=== PATIENT | male | born 1945 | race Caucasian/White ===

== ENCOUNTER 2018-06-20 11:56 | Inpatient (IN) ==
[2018-06-20] MEDS ORDERED: IOPAMIDOL 100 ML BOTTLE IV ONE (11:57)
[2018-06-20] MEDS ORDERED: VANCOMYCIN 1,000 MG in 0.9 % SODIUM CHLORIDE 250 ML IV ONE (12:16)
[2018-06-20 13:45] LABS: Basophils # (Auto) 0 K/mcL (0.0-0.3); Basophils % (Auto) 0.6 % (0.0-2.0); Eosinophils # (Auto) 0 K/mcL (0.0-0.7); Eosinophils % (Auto) 0.3 % (0.0-7.0); Lymphocytes # (Auto) 1.3 K/mcL (1.5-4.8); Lymphocytes % (Auto) 19.1 % (15.5-49.0); Mean Cell Volume 103.2 fL (80.0-100.0); Mean Corpuscular HGB Conc 34.3 g/dL (31.0-36.0); Mean Corpuscular Hemoglobin 35.4 pg (26.0-34.0); Monocytes # (Auto) 0.5 K/mcL (0.1-0.9); Platelet Count 150 K/mcL (140-440); RBC 3.76 M/mcL (4.50-5.90); Red Cell Distribution Width 16.4 % (11.5-14.5)
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
[2018-06-20 14:08] LABS: ALT/SGPT 18 U/l (0-40); Albumin 3.4 gm/dL (3.2-5.2); Alkaline Phosphatase 112 U/L (39-117); Blood Urea Nitrogen 7 mg/dl (8-23)
[2018-06-20] MEDS ORDERED: oxyCODONE 10 MG TAB.ER.12H PO SCH (15:00)
[2018-06-20] MEDS ORDERED: oxyCODONE 10 MG TAB.ER.12H PO ONE (15:00)
--- NOTE | 2018-06-20 15:28 | Cat Scan Report ---
CLINICAL INFORMATION: Injury to the right lower extremity. Severe pain and swelling. TECHNIQUE: 95 mL contrast material injected. CTA of the right lower extremity performed. Sagittally and coronally reformatted images. MIP reformatted images. COMPARISON: None. FINDINGS: There is a nonhealing wound in the right lower extremity. There is a single soft tissue gas bubble within the anterolateral soft tissues. Popliteal artery is normal. No stenosis or occlusion. Anterior tibial artery is normal. No luminal irregularity. No calcified or noncalcified plaque. No obstruction or stenosis. Dorsalis pedis artery is normal. There is mild calcified atherosclerotic plaque in the posterior tibial peroneal trunk. There is calcified plaque at the bifurcation of the peroneal artery and posterior tibial artery. Posterior tibial artery is patent without stenosis. No significant luminal irregularity. Peroneus artery is also patent without stenosis or occlusion. No other vascular abnormality. The muscles of the plantar arch appear normal. There is generalized subcutaneous edema consistent with cellulitis. No well-defined focal fluid collection. No radiopaque foreign body. No evidence for osteomyelitis. IMPRESSION: 1. Mild calcified plaque in the posterior tibial peroneal trunk. No stenosis or occlusion 2. Otherwise negative CTA of the popliteal artery and calf vessels 3. Generalized subcutaneous edema consistent with cellulitis. Single soft tissue gas bubble in the anterolateral lateral soft tissues of the catheter. Interpreted and Authenticated by: Haider Barajas 06/20/18
--- NOTE | 2018-06-20 16:21 | Emergency Department Note ---
ED Note Addendum Note Addendum: Patient evaluated with Mary and agree with the diagnosis and treatment and the need to be admitted. CTA reveals no evidence of vascular disease. Dr. Carbajal has accepted the patient
[2018-06-20] MEDS ORDERED: ONDANSETRON 4 MG/2 ML VIAL IV PRN (17:07)
[2018-06-20] MEDS ORDERED: NICOTINE 21 MG PATCH TOPICAL ONE (17:49)
[2018-06-20] MEDS: ceFAZolin 1 GM VIAL IV SCH (17:54)
[2018-06-20] MEDS: 0.9 % SODIUM CHLORIDE 1,000 ML IV SCH (18:01)
[2018-06-20] MEDS: CLINDAMYCIN 600 MG in DEXTROSE 5% IN WATER 50 ML IV SCH (18:10)
[2018-06-20] MEDS: TAMSULOSIN 0.4 MG CAPSULE PO SCH ×2 (18:12→20:15)
[2018-06-20] MEDS: oxyCODONE HCL 5 MG TABLET PO PRN (20:15)
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
[2018-06-20] MEDS: 0.9 % SODIUM CHLORIDE 10 ML SYRINGE IV SCH (22:45)
[2018-06-21] MEDS: ceFAZolin 1 GM VIAL IV SCH ×2 (01:55→22:41)
[2018-06-21] MEDS: oxyCODONE HCL 5 MG TABLET PO PRN ×4 (02:18→23:41)
[2018-06-21] MEDS: 0.9 % SODIUM CHLORIDE 1,000 ML IV SCH ×3 (04:37→23:41)
[2018-06-21] MEDS: 0.9 % SODIUM CHLORIDE 10 ML SYRINGE IV SCH ×3 (05:08→21:12)
[2018-06-21] MEDS: CLINDAMYCIN 600 MG in DEXTROSE 5% IN WATER 50 ML IV SCH (05:25)
[2018-06-21 06:56] LABS: ALT/SGPT 15 U/l (0-40); Albumin 2.7 gm/dL (3.2-5.2); Alkaline Phosphatase 109 U/L (39-117); Blood Urea Nitrogen 9 mg/dl (8-23)
[2018-06-21] MEDS: LEVOTHYROXINE 150 MCG TABLET PO SCH (07:50)
[2018-06-21] MEDS: PANTOPRAZOLE 40 MG TABLET PO SCH (07:50)
[2018-06-21 08:19] LABS: Mean Cell Volume 103.6 fL (80.0-100.0); Mean Corpuscular HGB Conc 34.6 g/dL (31.0-36.0); Mean Corpuscular Hemoglobin 35.8 pg (26.0-34.0); Platelet Count 138 K/mcL (140-440); RBC 3.36 M/mcL (4.50-5.90); Red Cell Distribution Width 16.5 % (11.5-14.5)
[2018-06-21] MEDS: ENOXAPARIN 40 MG/0.4 ML SYRINGE SQ SCH (08:22)
[2018-06-21 08:26] LABS: Anisocytosis 1+ (NONE SEEN); Band Neutrophils % 8 % (0-10); Eosinophils % (Manual) 3 % (0-7); Lymphocytes % 32 % (15-49); Macrocytosis 1+ (NONE SEEN); Monocytes % (Manual) 5 % (1-12); Platelet Estimate NORMAL (NORMAL); RBC Morphology ABNORM (NORMAL); Segmented Neutrophils % 52 % (38-78)
[2018-06-21] MEDS ORDERED: VIT A,C & E/LUTEIN/MINERALS TABLET PO SCH (09:00)
[2018-06-21] MEDS ORDERED: VANCOMYCIN PER PHARMACY IV SCH (10:19)
[2018-06-21] MEDS: VANCOMYCIN 1,500 MG in 0.9 % SODIUM CHLORIDE 500 ML IV SCH (10:53)
[2018-06-21] MEDS: MUPIROCIN CRM 2% 15 GM TUBE TOPICAL SCH ×2 (10:53→21:13)
[2018-06-21] MEDS: NICOTINE 21 MG PATCH TOPICAL SCH (10:53)
[2018-06-21] MEDS: CEFEPIME 2 GM VIAL IV SCH ×2 (10:53→23:41)
[2018-06-21] MEDS: ACETAMINOPHEN 325 MG TABLET PO PRN ×2 (13:18→20:22)
--- NOTE | 2018-06-21 16:33 | Internal Med Progress Note ---
Medical - PN: Subj Patient information: Note initiated : 06/21/18 at 4:20 pm Service Date, if different from initiated Date: [] Patient: Aakash Arellano 73 y/o M admitted on 06/20/18 for Right Leg Infection. Chief Complaint: Follow-up cellulitis Interval history: 06/20 Mr. Arellano is a 73 year old M with a history of treated hypertension, treated hypothyroidism, chronic pain, BPH who presents back to the emergency department with worsening redness and pain of his right lower extremity. On Monday, 06/15, patient fell on [email or web address]. He is going to be camping with friends. 2 friends brought him to the emergency department. He had significant injury along the right sheets with a distal "J" laterally. He received irrigation of the wound with subsequent stitches. Antibiotics were prescribed, however the patient was one aware and it was not until Monday, 3 days later that he was called by the pharmacy to clam picker her prescription for cephalexin. He started taking that on Monday. On Monday prior to starting antibiotics he noticed that his leg was getting red and painful. On Monday he continued to be red and painful spot of oral antibiotics. He has had a double up on some of his usual home oxycodone to control the pain (from 10-20 mg every 4 hours as needed). Monday was seen in the emergency department here. There is erythema and pain. Margins were noted , he was given a dose of ceftriaxone and continued on cephalexin and asked to return if he did not improve. He returns today due to worsening erythema and pain of his right leg. Patient denies any fevers or chills associated with this. He's been mostly on the couch with his leg elevated. It's quite painful to get up, to move and to try to ambulate to the restroom. He's had no associated nausea or vomiting, no shaking chills. In the emergency department, erythema had progressed beyond the margins both distally and proximally (more so distally). He had an area of breakdown about a quarter of the way down from the proximal end of the laceration. There is concern this could be vascular insufficiency, he underwent CT angiography of the lower extremity showing patent vascular flow to the right leg. There was no notation of subcutaneous edema, no notation of any fascial changes. Patient's been admitted for further treatment of cellulitis associated with right leg laceration which has not responded to outpatient therapy. 9/6 Feels well today. Pain is decreased in the leg, also notes her is decreased edema. Blood cultures without growth. No areas of purulence/drainage to culture. Being seen by wound care. Pertinent ROS: No fever, no dyspnea, no nausea vomiting, improved pain and right leg. - Constitutional Vitals: Vital Signs Temp Pulse Resp BP Pulse Ox 98.4 F 85 16 114/72 94 06/21/18 12:00 06/21/18 12:00 06/21/18 12:00 06/21/18 12:00 06/21/18 12:00 Period Temp Pulse Resp BP Sys/Rios Pulse Ox Last 24 Hr 97.1 F-98.5 F 65-85 16-18 106-143/65-91 93-100 Intake and Output 06/21/18 06/21/18 06/21/18 05:59 13:59 21:59 Intake Total 1375 / 1375 1854 / 1854 Output Total 725 / 725 1400 / 1400 Balance 650 / 650 454 / 454 Intake & Output: Intake & Output 06/21/18 06/21/18 06/21/18 05:59 13:59 21:59 Intake Total 1375 / 1375 1854 / 1854 Output Total 725 / 725 1400 / 1400 Balance 650 / 650 454 / 454 Intake: IV 1000 / 1000 1554 / 1554 Sodium Chloride 0.9% 1,000 ml @ 1000 / 1000 1000 / 1000 100 mls/hr IV .Q10H MARGARITO Rx#: [id number] Cleocin 600 mg In Dextrose 5% 54 / 54 in Water 50 ml @ 100 mls/hr IV Q8H MARGARITO Rx#:[id number] Vancomycin 1,500 mg In Sodium 500 / 500 Chloride 0.9% 500 ml @ 333.3 mls/hr IV Q24H MARGARITO Rx#: [id number] Oral 375 / 375 300 / 300 Output: Void Amount 725 / 725 1400 / 1400 Other: Meal egg sandwich, chicken noodle soup, cracker Breakfast Percent of Meal Consumed 100% 50% Feeding Ability Independent Assist with Tray Set Up Urine Appearance Clear Urine Color Pale Urine Odor Normal # Voids 1 2 Exam: General: Awake, alert, no acute distress Chest: Respirations unlabored Cardio vascular: Regular, no murmur Abdomen: Soft, nontender Musculoskeletal/skin: Right lower extremity with significantly decreased leg edema. Erythema has stopped from the level of the forefoot to the distal leg. Proximal erythema about the same. Decreased dermal edema around the wound, some skin definition developing. Neuro: Alert, oriented 3, nonfocal Medical - PN: Obj Da - Labs CBC & Chem 7: 06/21/18 04:12 06/21/18 04:12 Labs: Abnormal Lab Results 06/21/18 06/21/18 06/20/18 04:12 04:12 13:25 RBC 3.36 L Hgb 12.1 L Hct 34.8 L POC Hct 39.0 L MCV 103.6 H MCH 35.8 H RDW 16.5 H Plt Count 138 L Lymph # (Auto) RBC Morphology Abnorm A Polychromasia Few A Anisocytosis 1+ A Macrocytosis 1+ A POC BUN 7 L BUN Creatinine 0.5 L POC Creatinine 0.5 L Glucose 115 H POC Glucose 107 H Calcium 8.3 L POC WB Ioniz Calcium 1.11 L Total Protein 5.4 L Albumin 2.7 L 06/20/18 06/20/18 13:10 13:10 RBC 3.76 L Hgb 13.3 L Hct 38.8 L POC Hct MCV 103.2 H MCH 35.4 H RDW 16.4 H Plt Count Lymph # (Auto) 1.3 L RBC Morphology Polychromasia Anisocytosis Macrocytosis POC BUN BUN 7 L Creatinine 0.5 L POC Creatinine Glucose 110 H POC Glucose Calcium POC WB Ioniz Calcium Total Protein Albumin Microbiology 06/20/18 13:25 Blood Culture - Preliminary Blood 06/20/18 13:10 Blood Culture - Preliminary Blood Meds: Medications Acetaminophen (Tylenol) 650 mg PO Q6HP PRN PRN Reason: PAIN/FEVER > 101 Last Admin: 06/21/18 13:18 Dose: 650 mg Cefepime HCl (Maxipime) 2 gm IV Q12H [facility] Last Admin: 06/21/18 10:53 Dose: 2 gm Enoxaparin Sodium (Lovenox) 40 mg SQ DAILY [facility] Last Admin: 06/21/18 08:22 Dose: 40 mg Sodium Chloride (Sodium Chloride 0.9%) 1,000 mls @ 100 mls/hr IV .Q10H [facility] Last Admin: 06/21/18 13:48 Dose: 100 mls/hr Vancomycin HCl 1,500 mg/ (Sodium Chloride) 500 mls @ 333.3 mls/hr IV Q24H [facility] Last Infusion: 06/21/18 13:11 Dose: Infused Levothyroxine Sodium (Synthroid) 150 mcg PO ACB [facility] Last Admin: 06/21/18 07:50 Dose: 150 mcg Morphine Sulfate (Morphine) 6 mg IV Q4HP PRN PRN Reason: PAIN LEVEL > 6 Multivitamins/Minerals (Ocuvite) 1 tab PO DAILY [facility] Last Admin: 06/21/18 08:22 Dose: 1 tab Mupirocin (Bactroban Crm 2%) 1 gm TOPICAL BID [facility] Last Admin: 06/21/18 10:53 Dose: 1 gm Nicotine (Nicoderm) 21 mg TOPICAL DAILY@1000 [facility] Last Admin: 06/21/18 10:53 Dose: 21 mg Ondansetron HCl (Zofran) 4 mg IV Q6HP PRN PRN Reason: Nausea And Vomiting Oxycodone HCl (Roxicodone) 10 mg PO Q4HP PRN PRN Reason: PAIN LEVEL 3-6 Last Admin: 06/21/18 11:20 Dose: 10 mg Pantoprazole Sodium (Protonix) 40 mg PO QAMAC [facility] Last Admin: 06/21/18 07:50 Dose: 40 mg Sodium Chloride (Saline Flush) 10 ml IV Q8 [facility] Last Admin: 06/21/18 15:29 Dose: Not Given Tamsulosin HCl (Flomax) 0.4 mg PO HS [facility] Last Admin: 06/20/18 20:15 Dose: Not Given Vancomycin HCl (Vancomycin Per Pharmacy) 1 order IV UD [facility] Medical - PN: A/P (1) Cellulitis of right lower extremity Status: Acute Current Visit: Yes (2) Hypertension Status: Chronic Current Visit: Yes (3) Hypothyroid Status: Chronic Current Visit: Yes (4) Degenerative disc disease, lumbar Status: Chronic Current Visit: Yes - Narrative A/P Narrative: 73-year-old male presents with worsening erythema and pain of the right lower extremity after a wound from falling on rocks 5 days prior to presentation. Cellulitis of the right leg. At admission was worsening in spite of ceftriaxone 1 dose on day [employer], as well as cephalexin. Initial cephalexin didn' t get started until late, however he is been on 2 days of oral antibiotics with one dose of intravenous antibiotics with worsening symptoms at time of admission. Organisms as possible etiologies include streptococcus. This was not saltwater, vibrio not likely. Would need to consider Aeromonas if not improving. Very small focus of gas in the subcutaneous tissues, but no other evidence of infection and the fascial planes on CT. This morning, decreased edema and erythema of his leg. Discussed with infectious disease, will broaden antibiotic coverage as noted below to give better empiric gram negative coverage including Aeromonas and Pseudomonas as well as MRSA, as he may represent a ceftriaxone failure. Plan: Change to vancomycin and cefepime. Infectious disease and wound care consultations. Continue to elevate limb. Follow vancomycin levels, adjust as needed. Hypertension. Usually controlled on medications. Plan: Continue home meds. Hypothyroidism. On replacement. Plan: Continue. Degenerative disc disease with chronic pain on chronic opioids. Plan: Continue home oxycodone, and as needed IV morphine for pain control
--- NOTE | 2018-06-21 16:52 | General Surgery Consult Note ---
History of Present Illness Patient information: Note initiated : 06/21/18 at 4:44 pm Service Date, if different from initiated Date: [] Patient: Aakash Arellano 73 y/o M admitted on 06/20/18 for Right Leg Infection. Chief Complaint: [] Consult date: 06/21/18 (infected wound right leg.) Requesting physician: Geri Quiñones (wound care and continuation of treatment) History of present illness: I saw this patient along with Bharath RN and subsequently discussed this case with Dr. Quiñones hospitalist physician. This is a 73-year-old gentleman was admitted from the emergency room last evening. He presented with an infected right leg wound for about 4-5 days. Patient had fallen off on rocks when he was trying to calm out of water , when he was in [place]. This led to a significant traumatic tear injury of right posterior calf, skin and subcutaneous tissues. This was treated in the emergency room at that time by local thorough cleansing of the wound and suture closure of lacerations. Patient was discharged home with instructions about taking pain medications and oral antibiotics. Unfortunately he did not do that. He presented to the emergency room with worsening signs and symptoms of sepsis, acute inflammation with cellulitis and a mental status changes with confusion, poor vision and evolving signs of sepsis due to complicated skin and skin stricture infection. Additionally, there was strong suspicion for compromised vascular status of this extremity. Patient underwent CT angiography which revealed patent arterial tree all the way up to the foot and beyond. At this point, patient was admitted to the hospitalist service and started on intravenous antibiotics along with local wound care. Patient is currently responding to treatment and wound care consult was called for ongoing evaluation and follow-up for continuity of his care. Medications and Allergies Home Medications Medication Instructions Recorded Confirmed Type Cholecalciferol (Vitamin D3) 5,000 unit PO DAILY 03/05/16 06/20/18 History [Dialyvite Vitamin D] Fish Oil 1,000 mg PO DAILY 03/05/16 06/20/18 History Folic Acid 1 mg PO ONCE 03/05/16 06/20/18 History Levothyroxine [Synthroid] 150 mcg PO DAILY 03/05/16 06/20/18 History Sildenafil Citrate [Viagra] 50 mg PO PRN PRN 03/05/16 06/20/18 History Tamsulosin [Flomax] 0.4 mg PO HS 03/06/17 09/05/18 History Vit A/Vit C/Vit E/Zinc/Copper 1 each PO DAILY 12/19/16 06/20/18 History [Preservision Areds Softgel] Cephalexin [Keflex] 500 mg PO QID #40 cap 06/19/18 06/20/18 Rx oxyCODONE HCL [Oxycodone HCl] 1 tab PO QIDP PRN 06/19/18 06/20/18 History Allergies Allergy/AdvReac Type Severity Reaction Status Date / Time gabapentin AdvReac Mild Hallucinati Verified 06/21/18 06:31 ng Exam Temp Pulse Resp BP Pulse Ox 98.4 F 85 16 114/72 94 06/21/18 12:00 06/21/18 12:00 06/21/18 12:00 06/21/18 12:00 06/21/18 12:00 - General physical appearance well developed, well nourished, no distress, no pain - Eyes PERRL, normal ocular movement, other (decreased vision in both eyes due to long- standing changes of macular degeneration.) - ENT normal pinna, normal nares, normal mucosa, no hearing loss, no congestion - Head Head exam IM: Present: atraumatic, normal inspection, normocephalic - Neck no masses, no bruits, trachea midline, no lymphadectomy, no venous distension - Cardiovascular Cardiovascular exam IM: Present: normal rate and rhythm - Respiratory normal expansion, normal respiratory effort, clear to auscultation - Abdomen Abdomen: Present: soft, non tender, bowel sounds - Integumentary Present: other (resolving inflammation, erythema, edema and warmth of the right leg from the knee down to the ankle. There is fine wrinkling of skin and the toes are pink warm and dry and mobile. Sensations are intact. There is no paresthesia. No crepitation. Resolving inflammatory changes in response to elevation, intravenous antibiotics and MIST treatment.) - Neurologic Present: normal coordination, normal sensation - Musculoskeletal Present: other (patient is currently resting in bed but reportedly is able to get out of bed and go to the bathroom.) - Psychiatric Present: oriented to time, oriented to person, oriented to place, speech is normal, memory intact Results - Labs 06/21/18 04:12 09/06/18 04:12 Abnormal lab results 06/21/18 06/21/18 Range/Units 04:12 04:12 RBC 3.36 L (4.50-5.90) M/mcL Hgb 12.1 L (13.5-16.5) g/dL Hct 34.8 L (41.0-55.0) % MCV 103.6 H (80.0-100.0) fL MCH 35.8 H (26.0-34.0) pg RDW 16.5 H (11.5-14.5) % Plt Count 138 L (140-440) K/mcL RBC Morphology Abnorm A (NORMAL) Polychromasia Few A (NONE SEEN) Anisocytosis 1+ A (NONE SEEN) Macrocytosis 1+ A (NONE SEEN) Creatinine 0.5 L (0.7-1.2) mg/dl Glucose 115 H (70-105) mg/dL Calcium 8.3 L (8.6-10.4) mg/dl Total Protein 5.4 L (5.9-8.4) gm/dL Albumin 2.7 L (3.2-5.2) gm/dL Diabetes panel 06/21/18 Range/Units 04:12 Sodium 137 (133-145) mmol/L Potassium 4.2 (3.3-5.1) mmol/L Chloride 101 (96-108) mmol/L Carbon Dioxide 27 (22-30) mmol/L BUN 9 (8-23) mg/dl Creatinine 0.5 L (0.7-1.2) mg/dl Glucose 115 H (70-105) mg/dL Calcium 8.3 L (8.6-10.4) mg/dl AST 19 (0-37) U/l ALT 15 (0-40) U/l Alkaline Phosphatase 109 (39-117) U/L Total Protein 5.4 L (5.9-8.4) gm/dL Albumin 2.7 L (3.2-5.2) gm/dL Calcium panel 06/21/18 Range/Units 04:12 Calcium 8.3 L (8.6-10.4) mg/dl Albumin 2.7 L (3.2-5.2) gm/dL Pituitary panel 06/21/18 Range/Units 04:12 Sodium 137 (133-145) mmol/L Potassium 4.2 (3.3-5.1) mmol/L Chloride 101 (96-108) mmol/L Carbon Dioxide 27 (22-30) mmol/L BUN 9 (8-23) mg/dl Creatinine 0.5 L (0.7-1.2) mg/dl Glucose 115 H (70-105) mg/dL Calcium 8.3 L (8.6-10.4) mg/dl Adrenal panel 06/21/18 Range/Units 04:12 Sodium 137 (133-145) mmol/L Potassium 4.2 (3.3-5.1) mmol/L Chloride 101 (96-108) mmol/L Carbon Dioxide 27 (22-30) mmol/L BUN 9 (8-23) mg/dl Creatinine 0.5 L (0.7-1.2) mg/dl Glucose 115 H (70-105) mg/dL Calcium 8.3 L (8.6-10.4) mg/dl Total Bilirubin 0.3 (0.0-1.0) mg/dL AST 19 (0-37) U/l ALT 15 (0-40) U/l Alkaline Phosphatase 109 (39-117) U/L Total Protein 5.4 L (5.9-8.4) gm/dL Albumin 2.7 L (3.2-5.2) gm/dL All other labs normal. Assessment and Plan (1) Sepsis affecting skin Status: Acute Priority: High Comment: Patient started on local wound care consisting of chlorhexidine washes, MIST treatment, Topical antibiotics and protect to dressing with Kerlix bandage. He is on broad-spectrum intravenous antibiotics which will be reevaluated and probably De-escalated later.
[2018-06-21] MEDS: TAMSULOSIN 0.4 MG CAPSULE PO SCH (20:22)
[2018-06-21] MEDS: VIT A,C & E/LUTEIN/MINERALS TABLET PO SCH (21:11)
[2018-06-22] MEDS: oxyCODONE HCL 5 MG TABLET PO PRN ×5 (04:43→20:47)
[2018-06-22] MEDS: 0.9 % SODIUM CHLORIDE 10 ML SYRINGE IV SCH ×3 (04:44→22:00)
[2018-06-22 05:40] LABS: Basophils # (Auto) 0 K/mcL (0.0-0.3); Basophils % (Auto) 0.8 % (0.0-2.0); Eosinophils # (Auto) 0.1 K/mcL (0.0-0.7); Eosinophils % (Auto) 1.1 % (0.0-7.0); Granulocytes % (Auto) 59.5 % (38.0-78.0); Lymphocytes # (Auto) 1.4 K/mcL (1.5-4.8); Lymphocytes % (Auto) 30.5 % (15.5-49.0); Mean Cell Volume 102.7 fL (80.0-100.0); Mean Corpuscular HGB Conc 34.4 g/dL (31.0-36.0); Mean Corpuscular Hemoglobin 35.3 pg (26.0-34.0); Monocytes # (Auto) 0.4 K/mcL (0.1-0.9); Monocytes % (Auto) 8.1 % (1.0-12.0); Platelet Count 155 K/mcL (140-440); RBC 3.21 M/mcL (4.50-5.90); Red Cell Distribution Width 16.1 % (11.5-14.5)
[2018-06-22 06:25] LABS: Blood Urea Nitrogen 7 mg/dl (8-23)
[2018-06-22] MEDS: LEVOTHYROXINE 150 MCG TABLET PO SCH (07:19)
[2018-06-22] MEDS: PANTOPRAZOLE 40 MG TABLET PO SCH (07:19)
[2018-06-22] MEDS: ENOXAPARIN 40 MG/0.4 ML SYRINGE SQ SCH (08:50)
[2018-06-22] MEDS: VIT A,C & E/LUTEIN/MINERALS TABLET PO SCH ×2 (08:50→19:05)
[2018-06-22] MEDS: VANCOMYCIN 1,500 MG in 0.9 % SODIUM CHLORIDE 500 ML IV SCH (08:50)
[2018-06-22] MEDS: MUPIROCIN CRM 2% 15 GM TUBE TOPICAL SCH (08:55)
[2018-06-22] MEDS: CEFEPIME 2 GM VIAL IV SCH ×2 (09:00→20:47)
[2018-06-22] MEDS: NICOTINE 21 MG PATCH TOPICAL SCH (09:00)
[2018-06-22] MEDS ORDERED: POLYETHYLENE GLYCOL 3350 17 GM PACKET PO PRN (10:42)
[2018-06-22] MEDS ORDERED: MAGNESIUM HYDROXIDE 30 ML ORAL.SUSP PO PRN (10:42)
[2018-06-22] MEDS ORDERED: LINEZOLID 600 MG TABLET PO ONE (11:15)
[2018-06-22] MEDS: NEOMY SULF/BACITRA/POLYMYXIN B OINT.PACK TOPICAL SCH ×2 (12:46→19:26)
[2018-06-22] MEDS: 0.9 % SODIUM CHLORIDE 1,000 ML IV SCH (12:48)
--- NOTE | 2018-06-22 13:17 | General Surgery Progress Note ---
Subjective Patient reports: other (Patient seen on the floor along with the nursing staff and wound examined.) Narrative: Note initiated : 06/22/18 at 1:12 pm Service Date, if different from initiated Date: [] Patient: Aakash Arellano 73 y/o M admitted on 06/20/18 for Right Leg Infection. Chief Complaint: [] Patient was seen on rounds for wound care along with Candice RN, Essence SALAMANCA. Wound examined and progress reviewed with the nursing staff on the floor. Objective Temp Pulse Resp BP Pulse Ox 98.2 F 70 20 134/82 94 06/22/18 11:24 06/22/18 07:23 06/22/18 11:24 06/22/18 11:24 06/22/18 11:24 Afebrile. Vital signs are stable. There are note acute changes in vision or physical examination. Local examination: There is resolving edema but over 30-40% of flap necrosis along the suture line midportion of the wound over the sheets area. There is edema and purulence is noted in between sutures. Periwound pitting edema has improved with resolving cellulitis and elevation of the extremity. Suspect that patient still has loculated subcutaneous collections, fat necrosis or other debris that needs operating room debridement, along with deep tissue samples for cultures and sensitivities. I will await darin-wound TCOM measurements. After the debridement, this patient will need hyperbaric oxygen therapy for compromise flap and ongoing treatment of sepsis. Given the acuity of this presentation and complex comorbidities, this patient needs prolonged hospitalization in the swing bed unit for coordination of his wound care, hyperbaric oxygen therapy and intravenous antibiotic administration. Once the viability of the flap is established, further decisions can be made about discharging him and continuing outpatient wound care, medication and wound management. TCOM measurements were done later this afternoon. He shows excellent response to 100% oxygen challenge with elevated periwound percutaneous O2 measurements of over 40-50% at the end of 15 minutes. This patient will benefit from adjuvant HBOT - Additional Data Intake & Output - Last 24 hours: Intake & Output 06/20/18 06/21/18 06/22/18 06/23/18 05:59 05:59 05:59 05:59 Intake Total 1679 / 1679 3842 / 3842 1240 / 1240 Output Total 1275 / 1275 3875 / 3875 Balance 404 / 404 -33 / -33 1240 / 1240 Weight 195 lb 191 lb 8 oz 191 lb 8 oz - Labs 06/22/18 04:25 06/22/18 04:25 Diabetes panel 06/22/18 Range/Units 04:25 Sodium 139 (133-145) mmol/L Potassium 3.8 (3.3-5.1) mmol/L Chloride 103 (96-108) mmol/L Carbon Dioxide 26 (22-30) mmol/L BUN 7 L (8-23) mg/dl Creatinine 0.5 L (0.7-1.2) mg/dl Glucose 125 H (70-105) mg/dL Calcium 8.3 L (8.6-10.4) mg/dl Calcium panel 06/22/18 Range/Units 04:25 Calcium 8.3 L (8.6-10.4) mg/dl Pituitary panel 06/22/18 Range/Units 04:25 Sodium 139 (133-145) mmol/L Potassium 3.8 (3.3-5.1) mmol/L Chloride 103 (96-108) mmol/L Carbon Dioxide 26 (22-30) mmol/L BUN 7 L (8-23) mg/dl Creatinine 0.5 L (0.7-1.2) mg/dl Glucose 125 H (70-105) mg/dL Calcium 8.3 L (8.6-10.4) mg/dl Adrenal panel 06/22/18 Range/Units 04:25 Sodium 139 (133-145) mmol/L Potassium 3.8 (3.3-5.1) mmol/L Chloride 103 (96-108) mmol/L Carbon Dioxide 26 (22-30) mmol/L BUN 7 L (8-23) mg/dl Creatinine 0.5 L (0.7-1.2) mg/dl Glucose 125 H (70-105) mg/dL Calcium 8.3 L (8.6-10.4) mg/dl Assessment and Plan (1) Sepsis affecting skin Problem details: Patient started on local wound care consisting of chlorhexidine washes, MIST treatment, Topical antibiotics and protect to dressing with Kerlix bandage. He is on broad-spectrum intravenous antibiotics which will be reevaluated and probably De-escalated later. Status: Acute Current Visit: Yes - Narrative A/P Narrative: Assessment: Resolving complicated skin and skin structure infection following a traumatic wound right leg, mid third anterolateral aspect. Area of flap necrosis in the midportion of the wound adjacent to the tibial border. Plan: Operating room debridement and excision of necrotic tissue along with the deep tissue samples for cultures and sensitivities. OR schedule for 06/23/2018 at 7:30 AM - Time Spent With Patient Total time spent is greater than 50% in coordination of care (as documented) at patient's floor/unit and/or counseling patient:
--- NOTE | 2018-06-22 13:48 | Internal Med Progress Note ---
Medical - PN: Subj Patient information: Note initiated : 06/22/18 at 1:35 pm Service Date, if different from initiated Date: [] Patient: Aakash Arellano 73 y/o M admitted on 06/20/18 for Debridement and Pulse Lavage Right Foot. Chief Complaint: f/u cellulitis Interval history: 06/20 Mr. Arellano is a 73 year old M with a history of treated hypertension, treated hypothyroidism, chronic pain, BPH who presents back to the emergency department with worsening redness and pain of his right lower extremity. On Monday, 06/15, patient fell on [place] He is going to be camping with friends. 2 friends brought him to the emergency department. He had significant injury along the right sheets with a distal "J" laterally. He received irrigation of the wound with subsequent stitches. Antibiotics were prescribed, however the patient was one aware and it was not until Monday, 3 days later that he was called by the pharmacy to warehouse order picker her prescription for cephalexin. He started taking that on Monday. On Monday prior to starting antibiotics he noticed that his leg was getting red and painful. On Monday he continued to be red and painful spot of oral antibiotics. He has had a double up on some of his usual home oxycodone to control the pain (from 10-20 mg every 4 hours as needed). Monday was seen in the emergency department here. There is erythema and pain. Margins were noted , he was given a dose of ceftriaxone and continued on cephalexin and asked to return if he did not improve. He returns today due to worsening erythema and pain of his right leg. Patient denies any fevers or chills associated with this. He's been mostly on the couch with his leg elevated. It's quite painful to get up, to move and to try to ambulate to the restroom. He's had no associated nausea or vomiting, no shaking chills. In the emergency department, erythema had progressed beyond the margins both distally and proximally (more so distally). He had an area of breakdown about a quarter of the way down from the proximal end of the laceration. There is concern this could be vascular insufficiency, he underwent CT angiography of the lower extremity showing patent vascular flow to the right leg. There was no notation of subcutaneous edema, no notation of any fascial changes. Patient's been admitted for further treatment of cellulitis associated with right leg laceration which has not responded to outpatient therapy. 06/21 Feels well today. Pain is decreased in the leg, also notes her is decreased edema. Blood cultures without growth. No areas of purulence/drainage to culture. Being seen by wound care. 06/22 Patient seen and examined today, seen with Dr. Irving, also discussed with Dr. Agudelo. Some necrosis in the midportion of the suture line, some mild purulence. Cultures taken. Pain in the leg continues with ambulation, though not as painful when he first came in. Edema continues to improve. Pertinent ROS: No fever, no dyspnea, no nausea. Pain in limb as noted. Decreased sensation in the area of necrosis in mid sheets. Complaining of constipation, no bowel movement since hospitalization. - Constitutional Vitals: Vital Signs Temp Pulse Resp BP Pulse Ox 98.2 F 70 20 134/82 94 06/22/18 11:24 06/22/18 07:23 06/22/18 11:24 06/22/18 11:24 06/22/18 11:24 Period Temp Pulse Resp BP Sys/Rios Pulse Ox Last 24 Hr 97.2 F-98.7 F 70-82 16-20 124-144/71-85 93-96 Intake and Output 06/21/18 06/22/18 06/22/18 21:59 05:59 13:59 Intake Total 800 / 800 1188 / 1188 1240 / 1240 Output Total 1375 / 1375 1100 / 1100 Balance -575 / -575 1240 / 1240 Weight 191 lb 8 oz 191 lb 8 oz Patient Weight 06/23/18 05:59 Weight 191 lb 8 oz Intake & Output: Intake & Output 06/21/18 06/22/18 06/22/18 21:59 05:59 13:59 Intake Total 800 / 800 1188 / 1188 1240 / 1240 Output Total 1375 / 1375 1100 / 1100 Balance -575 / -575 88 / 1240 / 1240 Weight 191 lb 8 oz 191 lb 8 oz Intake: IV 988 / 988 1000 / 1000 Sodium Chloride 0.9% 1,000 ml @ 988 / 988 100 mls/hr IV .Q10H MARGARITO Rx#: [id number] Oral 800 / 800 200 / 200 240 / 240 Output: Void Amount 1375 / 1375 1100 / 1100 Other: Meal Breakfast Percent of Meal Consumed 100% Feeding Ability Independent Urine Color Bright Yellow Urine Odor Normal # Voids 1 1 Exam: General: In bed in no acute distress Chest: Clear Cardiac vascular: Regular Abdomen: Soft, mildly distended Skin: Right lower extremity with mostly resolved pedal edema, some distal leg edema remains. Induration around the suture line with area of necrosis in the mid sheets. No underlying crepitus. Neuro: Alert, oriented 3, nonfocal Medical - PN: Obj Da - Labs CBC & Chem 7: 06/22/18 04:25 06/22/18 04:25 Labs: Abnormal Lab Results 06/22/18 06/22/18 06/21/18 04:25 04:25 04:12 RBC 3.21 L Hgb 11.3 L Hct 33.0 L POC Hct MCV 102.7 H MCH 35.3 H RDW 16.1 H Plt Count Lymph # (Auto) 1.4 L RBC Morphology Polychromasia Anisocytosis Macrocytosis POC BUN BUN 7 L Creatinine 0.5 L 0.5 L POC Creatinine Glucose 125 H 115 H POC Glucose Calcium 8.3 L 8.3 L POC WB Ioniz Calcium Total Protein 5.4 L Albumin 2.7 L 06/21/18 06/20/18 06/20/18 04:12 13:25 13:10 RBC 3.36 L Hgb 12.1 L Hct 34.8 L POC Hct 39.0 L MCV 103.6 H MCH 35.8 H RDW 16.5 H Plt Count 138 L Lymph # (Auto) RBC Morphology Abnorm A Polychromasia Few A Anisocytosis 1+ A Macrocytosis 1+ A POC BUN 7 L BUN 7 L Creatinine 0.5 L POC Creatinine 0.5 L Glucose 110 H POC Glucose 107 H Calcium POC WB Ioniz Calcium 1.11 L Total Protein Albumin 06/20/18 13:10 RBC 3.76 L Hgb 13.3 L Hct 38.8 L POC Hct MCV 103.2 H MCH 35.4 H RDW 16.4 H Plt Count Lymph # (Auto) 1.3 L RBC Morphology Polychromasia Anisocytosis Macrocytosis POC BUN BUN Creatinine POC Creatinine Glucose POC Glucose Calcium POC WB Ioniz Calcium Total Protein Albumin Meds: Medications Acetaminophen (Tylenol) 650 mg PO Q6HP PRN PRN Reason: PAIN/FEVER > 101 Last Admin: 06/21/18 20:22 Dose: 650 mg Cefepime HCl (Maxipime) 2 gm IV Q12H [facility] Last Admin: 06/22/18 09:00 Dose: 2 gm Docusate Sodium (Colace) 100 mg PO BID [facility] Enoxaparin Sodium (Lovenox) 40 mg SQ DAILY [facility] Last Admin: 06/22/18 08:50 Dose: 40 mg Gentamicin Sulfate 40 mg/Clindamycin Phosphate 300 mg/Bacitracin 25,000 unit/ Sodium Chloride 503 mls @ 0 mls/hr IRR Q12H [facility] Levothyroxine Sodium (Synthroid) 150 mcg PO ACB [facility] Last Admin: 06/22/18 07:19 Dose: 150 mcg Linezolid (Zyvox) 600 mg PO Q12 [facility] Magnesium Hydroxide (Milk Of Magnesia) 30 ml PO BIDP PRN PRN Reason: Constipation Morphine Sulfate (Morphine) 6 mg IV Q4HP PRN PRN Reason: PAIN LEVEL > 6 Multivitamins/Minerals (Ocuvite) 1 tab PO BID [facility] Last Admin: 06/22/18 08:50 Dose: 1 tab Neomycin/Polymyxin/Bacitracin (Neosporin) 1 dose TOPICAL BID [facility] Last Admin: 06/22/18 12:46 Dose: 1 dose Nicotine (Nicoderm) 21 mg TOPICAL DAILY@1000 [facility] Last Admin: 06/22/18 09:00 Dose: 21 mg Ondansetron HCl (Zofran) 4 mg IV Q6HP PRN PRN Reason: Nausea And Vomiting Oxycodone HCl (Roxicodone) 10 mg PO Q4HP PRN PRN Reason: PAIN LEVEL 3-6 Last Admin: 06/22/18 12:44 Dose: 10 mg Pantoprazole Sodium (Protonix) 40 mg PO QAMAC [facility] Last Admin: 06/22/18 07:19 Dose: 40 mg Polyethylene Glycol (Miralax) 17 gm PO DAILYP PRN PRN Reason: Constipation Last Admin: 06/22/18 11:33 Dose: 17 gm Sodium Chloride (Saline Flush) 10 ml IV Q8 [facility] Last Admin: 06/22/18 04:44 Dose: Not Given Tamsulosin HCl (Flomax) 0.4 mg PO HS [facility] Last Admin: 06/21/18 20:22 Dose: 0.4 mg Medical - PN: A/P - Time Spent With Patient Total time spent is greater than 50% in coordination of care (as documented) at patient's floor/unit and/or counseling patient: Greater than 35 minutes (1) Cellulitis of right lower extremity Status: Acute Current Visit: Yes (2) Hypertension Status: Chronic Current Visit: Yes (3) Hypothyroid Status: Chronic Current Visit: Yes (4) Degenerative disc disease, lumbar Status: Chronic Current Visit: Yes - Narrative A/P Narrative: 73-year-old male presents with worsening erythema and pain of the right lower extremity after a wound from falling on rocks 5 days prior to presentation. Cellulitis of the right leg. 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 Initial cephalexin didn' t get started until late, however he is been on 2 days of oral antibiotics with one dose of intravenous antibiotics with worsening symptoms at time of admission. Organisms as possible etiologies include streptococcus, also consider Aeromonas and Pseudomonas giving the nature of the wound ([place] The edema continues to improve, still central erythema and induration with some necrosis of the central area of the suture line. Discussed with Dr. Agudelo, who plans to open debridement with secondary closure. Discussed with Dr. Irving, will change to linezolid from vancomycin, continue cefepime at this time. Plan: Change vancomycin to linezolid, continue cefepime. Further surgical management per Dr. Agudelo. Hypertension. Usually controlled on medications. Plan: Continue home meds. Hypothyroidism. On replacement. Plan: Continue. Degenerative disc disease with chronic pain on chronic opioids. Plan: Continue home oxycodone, and as needed IV morphine for pain control
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
[2018-06-22] MEDS ORDERED: BISACODYL 10 MG SUPP.RECT PR PRN (18:53)
[2018-06-22] MEDS: DOCUSATE SODIUM 100 MG CAPSULE PO SCH (19:05)
[2018-06-22] MEDS: TAMSULOSIN 0.4 MG CAPSULE PO SCH (19:05)
[2018-06-22] MEDS: GENTAMICIN SULFATE 40 MG, CLINDAMYCIN 300 MG, BACITRACIN 25,000 UNIT in SODIUM CHLORIDE... IRR SCH (19:25)
[2018-06-22] MEDS: LINEZOLID 600 MG TABLET PO SCH (20:47)
[2018-06-22] MEDS ORDERED: GENTAMICIN SULFATE 40 MG, CLINDAMYCIN 300 MG, BACITRACIN 25,000 UNIT in SODIUM CHLORIDE... IRR SCH (21:00)
[2018-06-22 21:30] LABS: Appearance,Urine CLEAR; Bilirubin,Urine NEG (NEG); Color,Urine YELLOW; Glucose,Urine (UA) NEGATIVE (NEG); Leukocyte Esterase,Urine NEG /uL (NEG); Protein,Urine NEG (NEG); Specific Gravity,Urine 1.014 (1.000-1.035); Urine Blood NEG mg/dL (<0.03); Urobilinogen,Urine NEG (NEG)
[2018-06-23] MEDS: 0.9 % SODIUM CHLORIDE 10 ML SYRINGE IV SCH ×3 (05:16→21:19)
[2018-06-23] MEDS: oxyCODONE HCL 5 MG TABLET PO PRN ×4 (05:16→23:49)
[2018-06-23 06:13] LABS: Basophils # (Auto) 0.1 K/mcL (0.0-0.3); Basophils % (Auto) 1.4 % (0.0-2.0); Eosinophils # (Auto) 0.1 K/mcL (0.0-0.7); Eosinophils % (Auto) 1.4 % (0.0-7.0); Granulocytes % (Auto) 60.3 % (38.0-78.0); Lymphocytes # (Auto) 1.4 K/mcL (1.5-4.8); Lymphocytes % (Auto) 29.4 % (15.5-49.0); Mean Cell Volume 103.1 fL (80.0-100.0); Mean Corpuscular HGB Conc 34.6 g/dL (31.0-36.0); Mean Corpuscular Hemoglobin 35.6 pg (26.0-34.0); Monocytes # (Auto) 0.4 K/mcL (0.1-0.9); Monocytes % (Auto) 7.5 % (1.0-12.0); Platelet Count 162 K/mcL (140-440); RBC 3.25 M/mcL (4.50-5.90); Red Cell Distribution Width 16.2 % (11.5-14.5)
[2018-06-23 06:44] LABS: Prealbumin 12.8 mg/dl (20-40)
[2018-06-23] MEDS: LEVOTHYROXINE 150 MCG TABLET PO SCH (06:48)
[2018-06-23] MEDS: PANTOPRAZOLE 40 MG TABLET PO SCH (06:48)
[2018-06-23 06:52] LABS: Blood Urea Nitrogen 10 mg/dl (8-23); C-Reactive Protein 4.8 mg/dl (0.0-0.8)
[2018-06-23 07:07] LABS: Estimated Average Glucose(eAG) 85 mg/dL; Hemoglobin A1C 4.6 % HGB (4.0-6.0)
[2018-06-23] MEDS ORDERED: PROPOFOL 200 MG/20 ML VIAL IV ONE (08:00)
[2018-06-23] MEDS ORDERED: DEXAMETHASONE 10 MG/ML VIAL IV ONE (08:00)
[2018-06-23] MEDS ORDERED: PHENYLEPHRINE 10 MG/ML VIAL IV ONE (08:00)
[2018-06-23] MEDS ORDERED: ONDANSETRON 4 MG/2 ML VIAL IV ONE (08:00)
[2018-06-23] MEDS ORDERED: GLYCOPYRROLATE 0.2 MG/ML VIAL IV ONE (08:00)
[2018-06-23] MEDS ORDERED: KETAMINE 100 MG/ML ML IV ONE (08:00)
[2018-06-23] MEDS ORDERED: fentaNYL 100 MCG/2 ML VIAL IV ONE (08:00)
[2018-06-23] MEDS ORDERED: LIDOCAINE HCL/PF 100 MG/5 ML SYRINGE IV ONE (08:00)
[2018-06-23] MEDS ORDERED: MIDAZOLAM 2 MG/2 ML VIAL IV ONE (08:00)
[2018-06-23] MEDS ORDERED: ACETAMINOPHEN 1,000 MG/100 ML BOTTLE IV ONE (08:25)
[2018-06-23] MEDS ORDERED: PROMETHAZINE 25 MG/ML VIAL IM PRN (08:25)
[2018-06-23] MEDS ORDERED: ONDANSETRON 4 MG/2 ML VIAL IV PRN ×2 (08:25→09:49)
[2018-06-23] MEDS ORDERED: IPRATROPIUM/ALBUTEROL 3 ML AMPUL.NEB NEB PRN (08:25)
[2018-06-23] MEDS ORDERED: BENZOCAINE/MENTHOL 1 LOZENGE PO PRN (08:25)
[2018-06-23] MEDS ORDERED: NALOXONE HCL 0.4 MG/ML VIAL IV PRN (08:25)
[2018-06-23] MEDS ORDERED: FLUMAZENIL 0.1 MG/ML ML IV PRN (08:25)
[2018-06-23] MEDS ORDERED: fentaNYL 100 MCG/2 ML VIAL IV PRN (08:25)
[2018-06-23] MEDS ORDERED: MEPERIDINE 50 MG/ML INJECTION IM PRN (08:25)
[2018-06-23] MEDS ORDERED: LACTATED RINGERS 250 ML IV PRN (08:25)
[2018-06-23] MEDS ORDERED: METHOCARBAMOL 1,000 MG/10 ML VIAL IV PRN (08:25)
[2018-06-23] MEDS ORDERED: MEPERIDINE 25 MG/ML SYRINGE IV PRN (08:25)
[2018-06-23] MEDS ORDERED: LACTATED RINGERS 1,000 ML IV SCH (08:30)
[2018-06-23] MEDS ORDERED: GENTAMICIN SULFATE 800 MG/20 ML VIAL IR ONE (08:53)
--- NOTE | 2018-06-23 08:55 | General Surgery Procedure Note ---
Date of procedure: Note initiated : 06/23/18 at 8:51 am Service Date, if different from initiated Date: [] Pre-op diagnosis: Sepsis: Infected trauma wound with Flap necrosis degloving RIGHT leg wound Post-op diagnosis: same Procedure: Excision of gangrenous necrotic skin, sub cutaneous fat, Debridement of wound, pulse lavage irrigation LOOSE approximation of open flap edges and stabilization of wound Findings: Wound dimensions 18 x 7 x 1 CM. Underlying fascia covering viable muscle is intact Anesthesia: GLMA Surgeon: Arturo Agudelo Estimated blood loss: 100 Pathology: other (Gangrenous tissue for pahtology. Tissue cultures for aerobic and anaerobic pathogens) Description of procedure: Excision debridement, pulse lavage irrigation, tissue biopsy and cultures OPEN packing. Condition: stable Disposition: PACU (Procedure well tolerated.)
[2018-06-23] MEDS ORDERED: CEFEPIME 2 GM VIAL IV SCH (09:00)
[2018-06-23] MEDS ORDERED: MAGNESIUM HYDROXIDE 30 ML ORAL.SUSP PO PRN (09:49)
[2018-06-23] MEDS ORDERED: BISACODYL 10 MG SUPP.RECT PR PRN (09:49)
[2018-06-23] MEDS ORDERED: POLYETHYLENE GLYCOL 3350 17 GM PACKET PO PRN (09:49)
--- NOTE | 2018-06-23 10:54 | Internal Med Progress Note ---
Medical - PN: Subj Patient information: Note initiated : 06/23/18 at 10:51 am Service Date, if different from initiated Date: [] Patient: Aakash Arellano 73 y/o M admitted on 06/20/18 for Debridement and Pulse Lavage Right Foot. Chief Complaint: Follow-up cellulitis Interval history: 06/20 Mr. Arellano is a 73 year old M with a history of treated hypertension, treated hypothyroidism, chronic pain, BPH who presents back to the emergency department with worsening redness and pain of his right lower extremity. On Monday, 06/15, patient fell on [place] [employer] [place]. He is going to be camping with friends. 2 friends brought him to the emergency department. He had significant injury along the right sheets with a distal "J" laterally. He received irrigation of the wound with subsequent stitches. Antibiotics were prescribed, however the patient was one aware and it was not until Monday, 3 days later that he was called by the pharmacy to pick up truck driver her prescription for cephalexin. He started taking that on Monday. On Monday prior to starting antibiotics he noticed that his leg was getting red and painful. On Monday he continued to be red and painful spot of oral antibiotics. He has had a double up on some of his usual home oxycodone to control the pain (from 10-20 mg every 4 hours as needed). Monday was seen in the emergency department here. There is erythema and pain. Margins were noted , he was given a dose of ceftriaxone and continued on cephalexin and asked to return if he did not improve. He returns today due to worsening erythema and pain of his right leg. Patient denies any fevers or chills associated with this. He's been mostly on the couch with his leg elevated. It's quite painful to get up, to move and to try to ambulate to the restroom. He's had no associated nausea or vomiting, no shaking chills. In the emergency department, erythema had progressed beyond the margins both distally and proximally (more so distally). He had an area of breakdown about a quarter of the way down from the proximal end of the laceration. There is concern this could be vascular insufficiency, he underwent CT angiography of the lower extremity showing patent vascular flow to the right leg. There was no notation of subcutaneous edema, no notation of any fascial changes. Patient's been admitted for further treatment of cellulitis associated with right leg laceration which has not responded to outpatient therapy. 06/21 Feels well today. Pain is decreased in the leg, also notes her is decreased edema. Blood cultures without growth. No areas of purulence/drainage to culture. Being seen by wound care. 06/22 Patient seen and examined today, seen with Dr. Irving, also discussed with Dr. Agudelo. Some necrosis in the midportion of the suture line, some mild purulence. Cultures taken. Pain in the leg continues with ambulation, though not as painful when he first came in. Edema continues to improve. 06/23 Status post debridement and washout in the OR by Dr. Agudelo this morning. A little groggy after anesthesia. No new complaints. Case discussed with ID this morning, we'll send screening for hepatitis and HIV given demographics. Patient believes he is had negative hepatitis screen in the past, though that was several years ago. Bacterial cultures as well as AFB, fungal cultures and tissue biopsy were collected intraoperatively. Pertinent ROS: Some pain and leg, feels a little groggy after anesthesia. No dyspnea, no abdominal pain. - Constitutional Vitals: Vital Signs Temp Pulse Resp BP Pulse Ox 97.2 F 64 14 121/75 90 06/23/18 09:35 06/23/18 09:35 06/23/18 09:35 06/23/18 09:35 06/23/18 09:35 Period Temp Pulse Resp BP Sys/Rios Pulse Ox Last 24 Hr 97.2 F-98.2 F 64-78 12-20 99-138/40-88 90-98 Intake and Output 06/22/18 06/23/18 06/23/18 21:59 05:59 13:59 Intake Total 360 / 360 540 / 540 1200 / 1200 Output Total 525 / 525 750 / 750 350 / 350 Balance -165 / -165 -210 / -210 850 / 850 Weight 198 lb Intake & Output: Intake & Output 06/22/18 06/23/18 06/23/18 21:59 05:59 13:59 Intake Total 360 / 360 540 / 540 1200 / 1200 Output Total 525 / 525 750 / 750 350 / 350 Balance -165 / -165 -210 / -210 850 / 850 Weight 198 lb Intake: IV 1200 / 1200 Lactated Ringers 1,000 ml @ 20 1200 / 1200 mls/hr IV .Q24H [facility] Rx#: [id number] Oral 360 / 360 540 / 540 Output: Void Amount 525 / 525 750 / 750 250 / 250 Estimated Blood Loss 100 / 100 Other: Urine Color Bright Yellow Urine Odor Normal # Voids 1 1 1 Exam: General: Sleepy, in no acute distress Chest: Few basilar rales, improved after deep respiration Cardiovascular: Regular, no murmur Abdomen: Soft, nontender Musculoskeletal: Right lower extremity with surgical dressing in place, 2+ dorsalis pedis pulse, trace pedal edema Neuro: Sleepy, oriented, good insight. Medical - PN: Obj Da - Labs CBC & Chem 7: 06/23/18 03:45 06/23/18 03:45 Labs: Abnormal Lab Results 06/23/18 06/23/18 06/23/18 03:45 03:45 03:45 RBC 3.25 L Hgb 11.6 L Hct 33.5 L POC Hct MCV 103.1 H MCH 35.6 H RDW 16.2 H Plt Count Lymph # (Auto) 1.4 L RBC Morphology Polychromasia Anisocytosis Macrocytosis APTT 38 H POC BUN BUN Creatinine 0.6 L POC Creatinine Glucose 124 H POC Glucose Calcium POC WB Ioniz Calcium C-Reactive Protein 4.8 H Total Protein Albumin Prealbumin 12.8 L 06/22/18 06/22/18 06/21/18 04:25 04:25 04:12 RBC 3.21 L Hgb 11.3 L Hct 33.0 L POC Hct MCV 102.7 H MCH 35.3 H RDW 16.1 H Plt Count Lymph # (Auto) 1.4 L RBC Morphology Polychromasia Anisocytosis Macrocytosis APTT POC BUN BUN 7 L Creatinine 0.5 L 0.5 L POC Creatinine Glucose 125 H 115 H POC Glucose Calcium 8.3 L 8.3 L POC WB Ioniz Calcium C-Reactive Protein Total Protein 5.4 L Albumin 2.7 L Prealbumin 06/21/18 06/20/18 06/20/18 04:12 13:25 13:10 RBC 3.36 L Hgb 12.1 L Hct 34.8 L POC Hct 39.0 L MCV 103.6 H MCH 35.8 H RDW 16.5 H Plt Count 138 L Lymph # (Auto) RBC Morphology Abnorm A Polychromasia Few A Anisocytosis 1+ A Macrocytosis 1+ A APTT POC BUN 7 L BUN 7 L Creatinine 0.5 L POC Creatinine 0.5 L Glucose 110 H POC Glucose 107 H Calcium POC WB Ioniz Calcium 1.11 L C-Reactive Protein Total Protein Albumin Prealbumin 06/20/18 13:10 RBC 3.76 L Hgb 13.3 L Hct 38.8 L POC Hct MCV 103.2 H MCH 35.4 H RDW 16.4 H Plt Count Lymph # (Auto) 1.3 L RBC Morphology Polychromasia Anisocytosis Macrocytosis APTT POC BUN BUN Creatinine POC Creatinine Glucose POC Glucose Calcium POC WB Ioniz Calcium C-Reactive Protein Total Protein Albumin Prealbumin Meds: Medications Acetaminophen (Tylenol) 650 mg PO Q6HP PRN PRN Reason: PAIN/FEVER > 101 Ascorbic Acid (Vitamin C) 1,000 mg PO DAILY [facility] Bisacodyl (Dulcolax) 10 mg [place] DAILYP PRN PRN Reason: Constipation Cefepime HCl (Maxipime) 2 gm IV Q8H [facility] Docusate Sodium (Colace) 100 mg PO BID [facility] Enoxaparin Sodium (Lovenox) 40 mg SQ DAILY [facility] Levothyroxine Sodium (Synthroid) 150 mcg PO ACB [facility] Linezolid (Zyvox) 600 mg PO Q12 [facility] Magnesium Hydroxide (Milk Of Magnesia) 30 ml PO BIDP PRN PRN Reason: Constipation Morphine Sulfate (Morphine) 6 mg IV Q4HP PRN PRN Reason: PAIN LEVEL > 6 Multivitamins/Minerals (Ocuvite) 1 tab PO BID [facility] Nicotine (Nicoderm) 21 mg TOPICAL DAILY@1000 [facility] Ondansetron HCl (Zofran) 4 mg IV Q6HP PRN PRN Reason: Nausea And Vomiting Oxycodone HCl (Roxicodone) 10 mg PO Q4HP PRN PRN Reason: PAIN LEVEL 3-6 Pantoprazole Sodium (Protonix) 40 mg PO QAMAC [facility] Polyethylene Glycol (Miralax) 17 gm PO DAILYP PRN PRN Reason: Constipation Sodium Chloride (Saline Flush) 10 ml IV Q8 [facility] Tamsulosin HCl (Flomax) 0.4 mg PO HS [facility] Zinc Sulfate (Zinc) 50 mg PO DAILY [facility] Medical - PN: A/P - Time Spent With Patient Total time spent is greater than 50% in coordination of care (as documented) at patient's floor/unit and/or counseling patient: Greater than 35 minutes (1) Cellulitis of right lower extremity Status: Acute Current Visit: Yes (2) Hypertension Status: Chronic Current Visit: Yes (3) Hypothyroid Status: Chronic Current Visit: Yes (4) Degenerative disc disease, lumbar Status: Chronic Current Visit: Yes - Narrative A/P Narrative: 73-year-old male presents with worsening erythema and pain of the right lower extremity after a wound from falling on rocks 5 days prior to presentation. Cellulitis of the right leg. Now status post debridement in the OR, with resection of necrotic superficial tissue. Remains on cefepime and low nasal lid for broad coverage of wound associated with freshwater exposure to include Aeromonas, Pseudomonas as well as staph and strep. Plan: Continue with nasal lid, continue cefepime. Follow up intraoperative cultures. Wound care per Dr. Agudelo. We'll send screening hepatitis and HIV serology. Hypertension. Usually controlled on medications. Plan: Continue home meds. Hypothyroidism. On replacement. Plan: Continue. Degenerative disc disease with chronic pain on chronic opioids. Plan: Continue home oxycodone, and as needed IV morphine for pain control
[2018-06-23] MEDS: CEFEPIME 2 GM VIAL IV SCH ×3 (12:41→21:19)
[2018-06-23] MEDS: LINEZOLID 600 MG TABLET PO SCH ×3 (12:41→21:18)
[2018-06-23] MEDS: NICOTINE 21 MG PATCH TOPICAL SCH (12:41)
[2018-06-23] MEDS: NEOMY SULF/BACITRA/POLYMYXIN B OINT.PACK TOPICAL SCH (12:52)
[2018-06-23] MEDS: GENTAMICIN SULFATE 40 MG, CLINDAMYCIN 300 MG, BACITRACIN 25,000 UNIT in SODIUM CHLORIDE... IRR SCH (12:52)
[2018-06-23] MEDS: DOCUSATE SODIUM 100 MG CAPSULE PO SCH ×2 (12:52→21:18)
[2018-06-23] MEDS: VIT A,C & E/LUTEIN/MINERALS TABLET PO SCH ×2 (12:52→21:18)
[2018-06-23] MEDS: ENOXAPARIN 40 MG/0.4 ML SYRINGE SQ SCH (12:52)
[2018-06-23] MEDS: TAMSULOSIN 0.4 MG CAPSULE PO SCH (21:18)
[2018-06-24] MEDS: ACETAMINOPHEN 325 MG TABLET PO PRN (01:48)
[2018-06-24] MEDS: oxyCODONE HCL 5 MG TABLET PO PRN ×5 (04:46→22:56)
[2018-06-24 05:14] LABS: Basophils # (Auto) 0 K/mcL (0.0-0.3); Basophils % (Auto) 0.2 % (0.0-2.0); Eosinophils # (Auto) 0 K/mcL (0.0-0.7); Eosinophils % (Auto) 0 % (0.0-7.0); Granulocytes % (Auto) 82.1 % (38.0-78.0); Lymphocytes # (Auto) 1.1 K/mcL (1.5-4.8); Lymphocytes % (Auto) 11.7 % (15.5-49.0); Mean Cell Volume 102.2 fL (80.0-100.0); Mean Corpuscular HGB Conc 34.2 g/dL (31.0-36.0); Monocytes # (Auto) 0.5 K/mcL (0.1-0.9); Platelet Count 199 K/mcL (140-440); RBC 3.44 M/mcL (4.50-5.90); Red Cell Distribution Width 15.9 % (11.5-14.5)
[2018-06-24 05:38] LABS: Blood Urea Nitrogen 15 mg/dl (8-23)
[2018-06-24] MEDS: CEFEPIME 2 GM VIAL IV SCH ×3 (05:55→21:15)
[2018-06-24] MEDS: 0.9 % SODIUM CHLORIDE 10 ML SYRINGE IV SCH ×3 (05:55→21:16)
[2018-06-24] MEDS: PANTOPRAZOLE 40 MG TABLET PO SCH (06:43)
[2018-06-24] MEDS: LEVOTHYROXINE 150 MCG TABLET PO SCH (06:43)
[2018-06-24] MEDS: ZINC SULFATE 50 MG CAPSULE PO SCH (08:57)
[2018-06-24] MEDS: ASCORBIC ACID 500 MG TABLET PO SCH (08:58)
[2018-06-24] MEDS: VIT A,C & E/LUTEIN/MINERALS TABLET PO SCH ×2 (08:58→21:15)
[2018-06-24] MEDS: NICOTINE 21 MG PATCH TOPICAL SCH (08:58)
[2018-06-24] MEDS: ENOXAPARIN 40 MG/0.4 ML SYRINGE SQ SCH (08:58)
[2018-06-24] MEDS: LINEZOLID 600 MG TABLET PO SCH ×2 (08:58→21:15)
[2018-06-24] MEDS ORDERED: ZINC SULFATE 50 MG CAPSULE PO SCH (09:00)
[2018-06-24] MEDS: DOCUSATE SODIUM 100 MG CAPSULE PO SCH ×2 (09:23→21:16)
--- NOTE | 2018-06-24 12:48 | Internal Med Progress Note ---
Medical - PN: Subj Patient information: Note initiated : 06/24/18 at 12:46 pm Service Date, if different from initiated Date: [] Patient: Aakash Arellano 73 y/o M admitted on 06/20/18 for Debridement and Pulse Lavage Right Foot. Chief Complaint: f/u RLE wound, infection Interval history: 06/20 Mr. Arellano is a 73 year old M with a history of treated hypertension, treated hypothyroidism, chronic pain, BPH who presents back to the emergency department with worsening redness and pain of his right lower extremity. On Monday, 06/15, patient fell on rocks [place] the [place]. He is going to be camping with friends. 2 friends brought him to the emergency department. He had significant injury along the right sheets with a distal "J" laterally. He received irrigation of the wound with subsequent stitches. Antibiotics were prescribed, however the patient was one aware and it was not until Monday, 3 days later that he was called by the pharmacy to tile picker her prescription for cephalexin. He started taking that on Monday. On Monday prior to starting antibiotics he noticed that his leg was getting red and painful. On Monday he continued to be red and painful spot of oral antibiotics. He has had a double up on some of his usual home oxycodone to control the pain (from 10-20 mg every 4 hours as needed). Monday was seen in the emergency department here. There is erythema and pain. Margins were noted , he was given a dose of ceftriaxone and continued on cephalexin and asked to return if he did not improve. He returns today due to worsening erythema and pain of his right leg. Patient denies any fevers or chills associated with this. He's been mostly on the couch with his leg elevated. It's quite painful to get up, to move and to try to ambulate to the restroom. He's had no associated nausea or vomiting, no shaking chills. In the emergency department, erythema had progressed beyond the margins both distally and proximally (more so distally). He had an area of breakdown about a quarter of the way down from the proximal end of the laceration. There is concern this could be vascular insufficiency, he underwent CT angiography of the lower extremity showing patent vascular flow to the right leg. There was no notation of subcutaneous edema, no notation of any fascial changes. Patient's been admitted for further treatment of cellulitis associated with right leg laceration which has not responded to outpatient therapy. 06/21 Feels well today. Pain is decreased in the leg, also notes her is decreased edema. Blood cultures without growth. No areas of purulence/drainage to culture. Being seen by wound care. 06/22 Patient seen and examined today, seen with Dr. Irving, also discussed with Dr. Agudelo. Some necrosis in the midportion of the suture line, some mild purulence. Cultures taken. Pain in the leg continues with ambulation, though not as painful when he first came in. Edema continues to improve. 06/23 Status post debridement and washout in the OR by Dr. Agudelo this morning. A little groggy after anesthesia. No new complaints. Case discussed with ID this morning, we'll send screening for hepatitis and HIV given demographics. Patient believes he is had negative hepatitis screen in the past, though that was several years ago. Bacterial cultures as well as AFB, fungal cultures and tissue biopsy were collected intraoperatively. 06/24 Seen on rounds. No new complaints this morning. Superficial culture obtained on 06/22 growing coag-negative staph. From the intra-operative culture, Gram stain shows rare gram-positive cocci, culture pending. ARMANDO stain was negative for fungal elements. Remains on Zyvox and cefepime. Pertinent ROS: No fever, no dyspnea, no nausea or vomiting. Pain in leg generally controlled. He is requiring pain medication. - Constitutional Vitals: Vital Signs Temp Pulse Resp BP Pulse Ox 98.4 F 80 20 115/65 97 06/24/18 12:00 06/24/18 04:45 06/24/18 12:00 06/24/18 12:00 06/24/18 12:00 Period Temp Pulse Resp BP Sys/Rios Pulse Ox Last 24 Hr 97.3 F-98.4 F 80-88 16-20 111-135/62-77 92-97 Intake and Output 06/23/18 06/24/18 06/24/18 21:59 05:59 13:59 Intake Total 780 / 780 740 / 740 480 / 480 Output Total 750 / 750 225 / 225 Balance 740 / 740 255 / 255 Weight 198 lb Intake & Output: Intake & Output 06/23/18 06/24/18 06/24/18 21:59 05:59 13:59 Intake Total 780 / 780 740 / 740 480 / 480 Output Total 750 / 750 225 / 225 Balance 740 / 740 255 / 255 Weight 198 lb Intake: Oral 780 / 780 740 / 740 480 / 480 Output: Void Amount 750 / 750 225 / 225 Other: Meal Dinner Nourishment/Supplement Percent of Meal Consumed 100% 100% Feeding Ability Independent Independent Urine Appearance Clear Clear Urine Color Bright Yellow Pale Urine Odor Normal Normal Stool Size Large Stool Color Brown # Voids 1 2 # Bowel Movements 1 Exam: General: In bed in no acute distress Chest: Clear, no rales, labored Cardiovascular: Regular, trace foot edema of the right lower extremity Abdomen: Soft, nontender Musculoskeletal: Right lower extremity with dressings in place, good pulses, 2+ dorsalis pedis. Erythema starting to regress from proximal margin. Dressings are not taken down Neuro: Alert, oriented 3, nonfocal Medical - PN: Obj Da - Labs CBC & Chem 7: 06/24/18 04:20 06/24/18 04:20 Labs: Abnormal Lab Results 06/24/18 06/24/18 06/23/18 04:20 04:20 03:45 RBC 3.44 L Hgb 12.0 L Hct 35.1 L MCV 102.2 H MCH 35.0 H RDW 15.9 H Gran % 82.1 H Lymph % (Auto) 11.7 L Lymph # (Auto) 1.1 L ESR APTT BUN Creatinine 0.5 L Glucose 158 H Calcium C-Reactive Protein 5.2 H Prealbumin 06/23/18 06/23/18 06/23/18 03:45 03:45 03:45 RBC Hgb Hct MCV MCH RDW Gran % Lymph % (Auto) Lymph # (Auto) ESR 56 H APTT 38 H BUN Creatinine 0.6 L Glucose 124 H Calcium C-Reactive Protein 4.8 H Prealbumin 12.8 L 06/23/18 06/22/18 06/22/18 03:45 04:25 04:25 RBC 3.25 L 3.21 L Hgb 11.6 L 11.3 L Hct 33.5 L 33.0 L MCV 103.1 H 102.7 H MCH 35.6 H 35.3 H RDW 16.2 H 16.1 H Gran % Lymph % (Auto) Lymph # (Auto) 1.4 L 1.4 L ESR APTT BUN 7 L Creatinine 0.5 L Glucose 125 H Calcium 8.3 L C-Reactive Protein Prealbumin Microbiology 06/23/18 14:17 Gram Stain - Final-rare GPC's Leg - Lower Right Gram Stain - Final Anaerobic Culture - Preliminary Gram Stain - Final Wound Culture - Preliminary 06/22/18 11:00 Gram Stain - Final Leg - Lower Right Tissue Culture - Preliminary Coagulase negative staph 06/23/18 14:17 ARMANDO Preparation - Final Leg - Lower Right No fungal elements 06/20/18 13:25 Blood Culture - Preliminary Blood 06/20/18 13:10 Blood Culture - Preliminary Blood Meds: Medications Acetaminophen (Tylenol) 650 mg PO Q6HP PRN PRN Reason: PAIN/FEVER > 101 Last Admin: 06/24/18 01:48 Dose: 650 mg Ascorbic Acid (Vitamin C) 1,000 mg PO DAILY [facility] Last Admin: 06/24/18 08:58 Dose: 1,000 mg Bisacodyl (Dulcolax) 10 mg [place] DAILYP PRN PRN Reason: Constipation Cefepime HCl (Maxipime) 2 gm IV Q8H [facility] Last Admin: 06/24/18 05:55 Dose: 2 gm Docusate Sodium (Colace) 100 mg PO BID [facility] Last Admin: 06/24/18 09:23 Dose: Not Given Enoxaparin Sodium (Lovenox) 40 mg SQ DAILY [facility] Last Admin: 06/24/18 08:58 Dose: 40 mg Levothyroxine Sodium (Synthroid) 150 mcg PO ACB [facility] Last Admin: 06/24/18 06:43 Dose: 150 mcg Linezolid (Zyvox) 600 mg PO Q12 [facility] Last Admin: 06/24/18 08:58 Dose: 600 mg Magnesium Hydroxide (Milk Of Magnesia) 30 ml PO BIDP PRN PRN Reason: Constipation Last Admin: 06/23/18 12:41 Dose: 30 ml Morphine Sulfate (Morphine) 6 mg IV Q4HP PRN PRN Reason: PAIN LEVEL > 6 Multivitamins/Minerals (Ocuvite) 1 tab PO BID [facility] Last Admin: 06/24/18 08:58 Dose: 1 tab Nicotine (Nicoderm) 21 mg TOPICAL DAILY@1000 [facility] Last Admin: 06/24/18 08:58 Dose: 21 mg Ondansetron HCl (Zofran) 4 mg IV Q6HP PRN PRN Reason: Nausea And Vomiting Oxycodone HCl (Roxicodone) 10 mg PO Q4HP PRN PRN Reason: PAIN LEVEL 3-6 Last Admin: 06/24/18 10:29 Dose: 10 mg Pantoprazole Sodium (Protonix) 40 mg PO QAMAC [facility] Last Admin: 06/24/18 06:43 Dose: 40 mg Polyethylene Glycol (Miralax) 17 gm PO DAILYP PRN PRN Reason: Constipation Last Admin: 06/23/18 17:27 Dose: 17 gm Sodium Chloride (Saline Flush) 10 ml IV Q8 [facility] Last Admin: 06/24/18 05:55 Dose: 10 ml Tamsulosin HCl (Flomax) 0.4 mg PO HS [facility] Last Admin: 06/23/18 21:18 Dose: 0.4 mg Zinc Sulfate (Zinc) 50 mg PO DAILY [facility] Last Admin: 06/24/18 08:57 Dose: 50 mg Medical - PN: A/P - Time Spent With Patient Total time spent is greater than 50% in coordination of care (as documented) at patient's floor/unit and/or counseling patient: (1) Cellulitis of right lower extremity Status: Acute Current Visit: Yes (2) Hypertension Status: Chronic Current Visit: Yes (3) Hypothyroid Status: Chronic Current Visit: Yes (4) Degenerative disc disease, lumbar Status: Chronic Current Visit: Yes - Narrative A/P Narrative: 73-year-old male presents with worsening erythema and pain of the right lower extremity after a wound from falling on rocks 5 days prior to presentation. Cellulitis of the right leg. Now POD#1, status post debridement in the OR, with resection of necrotic superficial tissue. Remains on cefepime and linezolid lid for broad coverage of gram positive and gram negative pathogens from wound associated with freshwater exposure, including coverage for Aeromonas , Pseudomonas as well as staph and strep. HIV screen negative. Plan: Continue with linezolid and cefepime. Follow up intraoperative cultures. Wound care per Dr. Agudelo. Follow-up screening hepatitis serology. Hypertension. Usually controlled on medications. Plan: Continue home meds. Hypothyroidism. On replacement. Plan: Continue. Degenerative disc disease with chronic pain on chronic opioids. Plan: Continue home oxycodone, and as needed IV morphine for pain control
[2018-06-24] MEDS: TAMSULOSIN 0.4 MG CAPSULE PO SCH (21:15)
[2018-06-25] MEDS: oxyCODONE HCL 5 MG TABLET PO PRN ×4 (04:14→21:07)
[2018-06-25] MEDS: CEFEPIME 2 GM VIAL IV SCH ×3 (05:53→21:50)
[2018-06-25] MEDS: 0.9 % SODIUM CHLORIDE 10 ML SYRINGE IV SCH ×3 (05:54→22:05)
[2018-06-25] MEDS: PANTOPRAZOLE 40 MG TABLET PO SCH (08:10)
[2018-06-25] MEDS: LEVOTHYROXINE 150 MCG TABLET PO SCH (08:10)
--- NOTE | 2018-06-25 08:54 | Operative Note ---
DATE OF OPERATION: 06/23/2018 PREOPERATIVE DIAGNOSIS: Infected traumatic wound and flap necrosis right leg. POSTOPERATIVE DIAGNOSIS: Infected traumatic wound and flap necrosis right leg. OPERATION: 1. Excision of a gangrenous necrotic skin and subcutaneous fat. 2. Debridement with pulse lavage irrigation. 3. Loose approximation of open flap edges to stabilize the wound. ANESTHESIA: General laryngeal mask airway. ANESTHESIOLOGIST: Thuan ___, GREY WASHER. SURGEON: Arturo Agudelo MD INTRAOPERATIVE FINDINGS: Wound dimension: 18 cm x 7 cm x 1 cm. Underlying fascia covering the muscle is intact. This is a FULL thickness necrosis of the skin and subcutaneous tissue and fat from a degloving injury. PROCEDURE NOTE: After obtaining informed consent, patient was taken to the operating room. Timeout was called after he was successfully anesthetized using laryngeal mask airway. The site was marked earlier in the holding area. Intravenous antibiotics were ongoing from before. Preoperative photograph was taken. The right lower extremity was widely cleaned, prepped and draped in the standard fashion. The sutures were taken down. The open edges of the wound were carefully explored and the underlying blood clots were evacuated using digital exploration. Finally, the entire flap was freed from the underlying wound. Necrotic skin edges were excised with pickup and scissors. [employer]ter specimens were sent for pathology, culture and sensitivity for aerobic and anaerobic bacteria, fungus and AFB. The wound base and the undersurface of the flap was copiously washed and cleaned with 3 liters of normal saline. Later, this wound was irrigated and washed again with 1 liter of normal saline containing 800 mg of gentamicin. Towards completion, the fascia covering the wound appeared intact and clean. The remaining skin edges of the flap were found to be viable. These were anchored to the underlying fascia with interrupted sutures of 3-0 Prolene. The wound itself was covered with Xeroform gauze, 4 x 4 gauze, Kerlix, Webril, Coban and Víctor bandages, respectively. Blood loss was about 100 mL. Count of swabs, instruments and needles was reported to be correct. The patient recovered from surgery uneventfully. He was taken to the in stable condition. I saw the patient in the recovery room and subsequently spoke with patient's sister as requested by the patient. Her name is Niki Carreon, telephone [phone]. VD:judah Job ID: [id number] Doc ID: [id number] Arturo GÓMEZ
--- NOTE | 2018-06-25 11:01 | Internal Med Progress Note ---
Medical - PN: Subj Patient information: Note initiated : 06/25/18 at 10:59 am Service Date, if different from initiated Date: [] Patient: Aakash Arellano 73 y/o M admitted on 06/20/18 for Debridement and Pulse Lavage Right Foot. Chief Complaint: Follow-up right lower extremity wound Interval history: 06/20 Mr. Arellano is a 73 year old M with a history of treated hypertension, treated hypothyroidism, chronic pain, BPH who presents back to the emergency department with worsening redness and pain of his right lower extremity. On Monday, 06/15, patient fell on [place] the [place]. [place]. He is going to be camping with friends. 2 friends brought him to the emergency department. He had significant injury along the right sheets with a distal "J" laterally. He received irrigation of the wound with subsequent stitches. Antibiotics were prescribed, however the patient was one aware and it was not until Monday, 3 days later that he was called by the pharmacy to picker/puller her prescription for cephalexin. He started taking that on Monday. On Monday prior to starting antibiotics he noticed that his leg was getting red and painful. On Monday he continued to be red and painful spot of oral antibiotics. He has had a double up on some of his usual home oxycodone to control the pain (from 10-20 mg every 4 hours as needed). Monday was seen in the emergency department here. There is erythema and pain. Margins were noted , he was given a dose of ceftriaxone and continued on cephalexin and asked to return if he did not improve. He returns today due to worsening erythema and pain of his right leg. Patient denies any fevers or chills associated with this. He's been mostly on the couch with his leg elevated. It's quite painful to get up, to move and to try to ambulate to the restroom. He's had no associated nausea or vomiting, no shaking chills. In the emergency department, erythema had progressed beyond the margins both distally and proximally (more so distally). He had an area of breakdown about a quarter of the way down from the proximal end of the laceration. There is concern this could be vascular insufficiency, he underwent CT angiography of the lower extremity showing patent vascular flow to the right leg. There was no notation of subcutaneous edema, no notation of any fascial changes. Patient's been admitted for further treatment of cellulitis associated with right leg laceration which has not responded to outpatient therapy. 06/21 Feels well today. Pain is decreased in the leg, also notes her is decreased edema. Blood cultures without growth. No areas of purulence/drainage to culture. Being seen by wound care. 06/22 Patient seen and examined today, seen with Dr. Irving, also discussed with Dr. Agudelo. Some necrosis in the midportion of the suture line, some mild purulence. Cultures taken. Pain in the leg continues with ambulation, though not as painful when he first came in. Edema continues to improve. 06/23 Status post debridement and washout in the OR by Dr. Agudelo this morning. A little groggy after anesthesia. No new complaints. Case discussed with ID this morning, we'll send screening for hepatitis and HIV given demographics. Patient believes he is had negative hepatitis screen in the past, though that was several years ago. Bacterial cultures as well as AFB, fungal cultures and tissue biopsy were collected intraoperatively. 06/24 Seen on rounds. No new complaints this morning. Superficial culture obtained on 06/22 growing coag-negative staph. From the intra-operative culture, Gram stain shows rare gram-positive cocci, culture pending. ARMANDO stain was negative for fungal elements. Remains on Zyvox and cefepime. 06/25 -Seen on a rounds. Discussed with nursing. Discussed with wound care nurse. -To start hyperbaric oxygen today -Continues on broad antimicrobials, no new culture data Pertinent ROS: Some pain in leg, control pain meds. No nausea or vomiting. No dyspnea. No chest pain. - Constitutional Vitals: Vital Signs Temp Pulse Resp BP Pulse Ox 97.2 F 65 10 L 118/69 91 06/25/18 08:00 06/25/18 08:00 06/25/18 08:00 06/25/18 08:00 06/25/18 08:00 Period Temp Pulse Resp BP Sys/Rios Pulse Ox Last 24 Hr 97.2 F-98.5 F 65-76 10-20 115-126/61-76 91-97 Intake and Output 06/24/18 06/25/18 06/25/18 21:59 05:59 13:59 Intake Total 1320 / 1320 150 / 150 Balance 1320 / 1320 150 / 150 Weight 200 lb Intake & Output: Intake & Output 06/24/18 06/25/18 06/25/18 21:59 05:59 13:59 Intake Total 1320 / 1320 150 / 150 Balance 1320 / 1320 150 / 150 Weight 200 lb Intake: Oral 1320 / 1320 150 / 150 Other: Meal Dinner Percent of Meal Consumed 100% Feeding Ability Independent # Voids 5 Exam: General: In bed in no acute distress Chest: Clear, unlabored Cardio vascular: Regular Abdomen: Active bowel sounds, nontender Musculoskeletal: Right lower extremity with surgical dressings in place. Trace distal leg edema at the ankle. 2+ dorsalis pedis pulses. No proximal edema. Neuro: Alert, oriented, nonfocal Medical - PN: Obj Da - Labs CBC & Chem 7: 06/24/18 04:20 06/24/18 04:20 Labs: Abnormal Lab Results 06/24/18 06/24/18 06/23/18 04:20 04:20 03:45 RBC 3.44 L Hgb 12.0 L Hct 35.1 L MCV 102.2 H MCH 35.0 H RDW 15.9 H Gran % 82.1 H Lymph % (Auto) 11.7 L Lymph # (Auto) 1.1 L ESR APTT Creatinine 0.5 L Glucose 158 H C-Reactive Protein 5.2 H Prealbumin 06/23/18 06/23/18 06/23/18 03:45 03:45 03:45 RBC Hgb Hct MCV MCH RDW Gran % Lymph % (Auto) Lymph # (Auto) ESR 56 H APTT 38 H Creatinine 0.6 L Glucose 124 H C-Reactive Protein 4.8 H Prealbumin 12.8 L 06/23/18 03:45 RBC 3.25 L Hgb 11.6 L Hct 33.5 L MCV 103.1 H MCH 35.6 H RDW 16.2 H Gran % Lymph % (Auto) Lymph # (Auto) 1.4 L ESR APTT Creatinine Glucose C-Reactive Protein Prealbumin Microbiology 06/20/18 13:25 Blood Culture - Preliminary Blood 06/20/18 13:10 Blood Culture - Preliminary Blood 06/23/18 14:17 Gram Stain - Final Leg - Lower Right Gram Stain - Final Anaerobic Culture - Preliminary Gram Stain - Final Wound Culture - Preliminary 06/22/18 11:00 Gram Stain - Final Leg - Lower Right Tissue Culture - Preliminary Coagulase negative staph 06/23/18 14:17 ARMANDO Preparation - Final Leg - Lower Right Meds: Medications Acetaminophen (Tylenol) 650 mg PO Q6HP PRN PRN Reason: PAIN/FEVER > 101 Last Admin: 06/24/18 01:48 Dose: 650 mg Ascorbic Acid (Vitamin C) 1,000 mg PO DAILY [facility] Last Admin: 06/24/18 08:58 Dose: 1,000 mg Bisacodyl (Dulcolax) 10 mg [place] DAILYP PRN PRN Reason: Constipation Cefepime HCl (Maxipime) 2 gm IV Q8H [facility] Last Admin: 06/25/18 05:53 Dose: 2 gm Docusate Sodium (Colace) 100 mg PO BID [facility] Last Admin: 06/24/18 21:16 Dose: Not Given Enoxaparin Sodium (Lovenox) 40 mg SQ DAILY [facility] Last Admin: 06/24/18 08:58 Dose: 40 mg Levothyroxine Sodium (Synthroid) 150 mcg PO ACB [facility] Last Admin: 06/25/18 08:10 Dose: 150 mcg Linezolid (Zyvox) 600 mg PO Q12 [facility] Last Admin: 06/24/18 21:15 Dose: 600 mg Magnesium Hydroxide (Milk Of Magnesia) 30 ml PO BIDP PRN PRN Reason: Constipation Last Admin: 06/23/18 12:41 Dose: 30 ml Morphine Sulfate (Morphine) 6 mg IV Q4HP PRN PRN Reason: PAIN LEVEL > 6 Last Admin: 06/25/18 09:12 Dose: 6 mg Multivitamins/Minerals (Ocuvite) 1 tab PO BID [facility] Last Admin: 06/24/18 21:15 Dose: 1 tab Nicotine (Nicoderm) 21 mg TOPICAL DAILY@1000 [facility] Last Admin: 06/24/18 08:58 Dose: 21 mg Ondansetron HCl (Zofran) 4 mg IV Q6HP PRN PRN Reason: Nausea And Vomiting Oxycodone HCl (Roxicodone) 10 mg PO Q4HP PRN PRN Reason: PAIN LEVEL 3-6 Last Admin: 06/25/18 09:05 Dose: 10 mg Pantoprazole Sodium (Protonix) 40 mg PO QAMAC [facility] Last Admin: 06/25/18 08:10 Dose: 40 mg Polyethylene Glycol (Miralax) 17 gm PO DAILYP PRN PRN Reason: Constipation Last Admin: 06/23/18 17:27 Dose: 17 gm Sodium Chloride (Saline Flush) 10 ml IV Q8 [facility] Last Admin: 06/25/18 05:54 Dose: 10 ml Tamsulosin HCl (Flomax) 0.4 mg PO HS [facility] Last Admin: 06/24/18 21:15 Dose: 0.4 mg Zinc Sulfate (Zinc) 50 mg PO DAILY [facility] Last Admin: 06/24/18 08:57 Dose: 50 mg Medical - PN: A/P (1) Cellulitis of right lower extremity Status: Acute Current Visit: Yes (2) Hypertension Status: Chronic Current Visit: Yes (3) Hypothyroid Status: Chronic Current Visit: Yes (4) Degenerative disc disease, lumbar Status: Chronic Current Visit: Yes - Narrative A/P Narrative: 73-year-old male presents with worsening erythema and pain of the right lower extremity after a wound from falling on rocks 5 days prior to presentation. Cellulitis of the right leg. Now POD#2, status post debridement in the OR, with resection of necrotic superficial tissue. Remains on cefepime and linezolid (also with anti-toxin effect, vs. vanco) for broad coverage of gram positive and gram negative pathogens from wound associated with freshwater exposure, including coverage for Aeromonas, Pseudomonas as well as staph and strep. HIV screen negative. Hepatitis screen pending. For hyperbaric oxygen today. Plan: Continue with linezolid and cefepime. Follow up intraoperative cultures. Wound care per Dr. Agudelo. Follow-up screening hepatitis serology. Hypertension. Usually controlled on medications. Plan: Continue home meds. Hypothyroidism. On replacement. Plan: Continue. Degenerative disc disease with chronic pain on chronic opioids. Plan: Continue home oxycodone, and as needed IV morphine for pain control
[2018-06-25] MEDS: LINEZOLID 600 MG TABLET PO SCH ×2 (12:14→21:08)
[2018-06-25] MEDS: ASCORBIC ACID 500 MG TABLET PO SCH (12:15)
[2018-06-25] MEDS: ENOXAPARIN 40 MG/0.4 ML SYRINGE SQ SCH (12:15)
[2018-06-25] MEDS: VIT A,C & E/LUTEIN/MINERALS TABLET PO SCH ×2 (12:15→21:08)
[2018-06-25] MEDS: DOCUSATE SODIUM 100 MG CAPSULE PO SCH ×2 (12:15→21:08)
[2018-06-25] MEDS: NICOTINE 21 MG PATCH TOPICAL SCH (12:15)
[2018-06-25] MEDS: ZINC SULFATE 50 MG CAPSULE PO SCH (12:17)
--- NOTE | 2018-06-25 15:10 | Infectious Disease Prog Note ---
Subjective Patient information: Note initiated : 06/25/18 at 3:08 pm Service Date, if different from initiated Date: [] Patient: Adan,Aakash javier 73 y/o M admitted on 06/20/18 for Debridement and Pulse Lavage Right Foot. Chief Complaint: [] Interval history: pt doing fine. He was in HBO machine this afternoon. had surgical debridement on 06/23. Denies any fever, chills, n/v, loose stools. Objective Objective Narrative: rt leg: has raw base, with most of necrotic areas seen previously removed. There is flap covering the wound partially, with slight discoloration - Vital Signs Vital signs: Vital Signs Temp Pulse Resp BP BP Pulse Ox 06/25/18 12:00 36.7 C 75 14 119/68 95 06/25/18 08:00 36.2 C 65 10 L 118/69 91 06/25/18 07:47 36.2 C 65 10 L 118/69 91 06/25/18 04:00 36.4 C 70 18 126/76 94 06/24/18 23:19 36.9 C 73 18 117/70 96 06/24/18 20:00 36.7 C 76 20 117/69 96 06/24/18 16:00 36.5 C 20 116/61 95 Intake and Output 06/25/18 06/25/18 06/25/18 05:59 13:59 21:59 Intake Total 150 / 150 Balance 150 / 150 Intake: Oral 150 / 150 Other: # Voids 5 Intake & Output: Intake & Output 06/25/18 06/25/18 06/25/18 05:59 13:59 21:59 Intake Total 150 / 150 Balance 150 / 150 Intake: Oral 150 / 150 Other: # Voids 5 - General Appearance General appearance: well-developed - Lab 06/24/18 04:20 06/24/18 04:20 Most recent lab results Calcium 8.9 mg/dl (8.6-10.4) 06/24/18 04:20 Microbiology 06/23/18 14:17 Leg - Lower Right Gram Stain - Final 06/23/18 14:17 Leg - Lower Right Gram Stain - Final 06/23/18 14:17 Leg - Lower Right Anaerobic Culture - Preliminary 06/23/18 14:17 Leg - Lower Right Gram Stain - Final 06/23/18 14:17 Leg - Lower Right Wound Culture - Preliminary 06/20/18 13:10 Blood Blood Culture - Final 06/22/18 11:00 Leg - Lower Right Gram Stain - Final 06/22/18 11:00 Leg - Lower Right Tissue Culture - Final Coagulase negative staph 06/20/18 13:25 Blood Blood Culture - Preliminary 06/23/18 14:17 Leg - Lower Right ARMANDO Preparation - Final Medications Active Medications: Acetaminophen (Tylenol) 650 mg PO Q6HP PRN PRN Reason: PAIN/FEVER > 101 Last Admin: 06/24/18 01:48 Dose: 650 mg Ascorbic Acid (Vitamin C) 1,000 mg PO DAILY [facility] Last Admin: 06/25/18 12:15 Dose: 1,000 mg Admin: 06/24/18 08:58 Dose: 1,000 mg Bisacodyl (Dulcolax) [address] DAILYP PRN PRN Reason: Constipation Cefepime HCl (Maxipime) 2 gm IV Q8H [facility] Last Admin: 06/25/18 05:53 Dose: 2 gm Admin: 06/24/18 21:15 Dose: 2 gm Admin: 06/24/18 14:46 Dose: 2 gm Admin: 06/24/18 05:55 Dose: 2 gm Admin: 06/23/18 21:19 Dose: 2 gm Admin: 06/23/18 12:41 Dose: 2 gm Docusate Sodium (Colace) 100 mg PO BID [facility] Last Admin: 06/25/18 12:15 Dose: 100 mg Admin: 06/24/18 21:16 Dose: Not Given Non-Admin Reason: Patient Refused Admin: 06/24/18 09:23 Dose: Not Given Non-Admin Reason: Patient Refused Admin: 06/23/18 21:18 Dose: 100 mg Enoxaparin Sodium (Lovenox) 40 mg SQ DAILY [facility] Last Admin: 06/25/18 12:15 Dose: 40 mg Admin: 06/24/18 08:58 Dose: 40 mg Levothyroxine Sodium (Synthroid) 150 mcg PO ACB [facility] Last Admin: 06/25/18 08:10 Dose: 150 mcg Admin: 06/24/18 06:43 Dose: 150 mcg Linezolid (Zyvox) 600 mg PO Q12 [facility] Last Admin: 06/25/18 12:14 Dose: 600 mg Admin: 06/24/18 21:15 Dose: 600 mg Admin: 06/24/18 08:58 Dose: 600 mg Admin: 06/23/18 21:18 Dose: 600 mg Admin: 06/23/18 12:41 Dose: 600 mg Magnesium Hydroxide (Milk Of Magnesia) 30 ml PO BIDP PRN PRN Reason: Constipation Last Admin: 06/23/18 12:41 Dose: 30 ml Morphine Sulfate (Morphine) 6 mg IV Q4HP PRN PRN Reason: PAIN LEVEL > 6 Last Admin: 06/25/18 09:12 Dose: 6 mg Admin: 06/25/18 01:10 Dose: 6 mg Admin: 06/24/18 16:09 Dose: 6 mg Multivitamins/Minerals (Ocuvite) 1 tab PO BID [facility] Last Admin: 06/25/18 12:15 Dose: 1 tab Admin: 06/24/18 21:15 Dose: 1 tab Admin: 06/24/18 08:58 Dose: 1 tab Admin: 06/23/18 21:18 Dose: 1 tab Nicotine (Nicoderm) 21 mg TOPICAL DAILY@1000 [facility] Last Admin: 06/25/18 12:15 Dose: 21 mg Admin: 06/24/18 08:58 Dose: 21 mg Admin: 06/23/18 12:41 Dose: 21 mg Ondansetron HCl (Zofran) 4 mg IV Q6HP PRN PRN Reason: Nausea And Vomiting Oxycodone HCl (Roxicodone) 10 mg PO Q4HP PRN PRN Reason: PAIN LEVEL 3-6 Last Admin: 06/25/18 09:05 Dose: 10 mg Admin: 06/25/18 04:14 Dose: 10 mg Admin: 06/24/18 22:56 Dose: 10 mg Admin: 06/24/18 19:02 Dose: 10 mg Admin: 06/24/18 14:49 Dose: 10 mg Admin: 06/24/18 10:29 Dose: 10 mg Admin: 06/24/18 04:46 Dose: 10 mg Admin: 06/23/18 23:49 Dose: 10 mg Admin: 06/23/18 18:51 Dose: 10 mg Admin: 06/23/18 12:40 Dose: 10 mg Pantoprazole Sodium (Protonix) 40 mg PO QAMAC [facility] Last Admin: 06/25/18 08:10 Dose: 40 mg Admin: 06/24/18 06:43 Dose: 40 mg Polyethylene Glycol (Miralax) 17 gm PO DAILYP PRN PRN Reason: Constipation Last Admin: 06/23/18 17:27 Dose: 17 gm Sodium Chloride (Saline Flush) 10 ml IV Q8 [facility] Last Admin: 06/25/18 05:54 Dose: 10 ml Admin: 06/24/18 21:16 Dose: 10 ml Admin: 06/24/18 14:50 Dose: 10 ml Admin: 06/24/18 05:55 Dose: 10 ml Admin: 06/23/18 21:19 Dose: 10 ml Admin: 06/23/18 12:42 Dose: 10 ml Tamsulosin HCl (Flomax) 0.4 mg PO HS [facility] Last Admin: 06/24/18 21:15 Dose: 0.4 mg Admin: 06/23/18 21:18 Dose: 0.4 mg Zinc Sulfate (Zinc) 50 mg PO DAILY [facility] Last Admin: 06/25/18 12:17 Dose: 50 mg Admin: 06/24/18 08:57 Dose: 50 mg Assessment and Plan - Narrative A/P Narrative: A: # Deep SSTI of Rt leg following trauma in setting of freshwater exposure, s/p surgical debridement on 06/24 for necrosis of flap: - developement of necrosis of leg wound in light of good blood supply is ominous for toxin mediated damage by certain bacteria. - possible bacteria which can cause such presentation are: aeromonas hydrophillia, pseudomonas aeruginosa, streptococci, Staph aureus, atypical mycobacteria - prelim OR Cx with possible growth of some anerobic negar (Id and sensi pending ) - ESR 56, CRP 5.2 # NO sepsis: q SOFA score 0 - neg blood Cx so far Recommendations: - Continue IV cefepime 2gm q8, day 5. Can switch to Moxifloxacin 400 mg daily at time of discharge [pt should avoid concommitant antacids, multivitamins and dairy products. Consider spacing them by taking Moxifloxacin 2 hrs before or 6 hrs after taking any of these meds] - continue PO Linezolid 600 mg q12 hrs - agree with HBO therapy - will plan for a total of 4 weeks course of antibiotics. will see in ID clinic 2 weeks after discharge. Outpt f/u labs: CBC, BMP once weekly and ESR and CRP every other week will follow while inpatient Marco Irving MD Infectious Diseases
--- NOTE | 2018-06-25 19:45 | General Surgery Progress Note ---
Subjective Patient reports: no new complaints (patient had uneventful day and an uneventful night on Monday06/24/2018) Narrative: Note initiated : 06/25/18 at 7:43 pm Service Date, if different from initiated Date: [] Patient: Aakash Arellano 73 y/o M admitted on 06/20/18 for Debridement and Pulse Lavage Right Foot. Chief Complaint: [] Objective Temp Pulse Resp BP Pulse Ox 98 F 80 15 107/76 94 06/25/18 16:00 06/25/18 16:00 06/25/18 16:00 06/25/18 16:00 06/25/18 16:00 Afebrile. Vital signs are stable. No acute changes in general physical examination. Local examination: Partially covered wound with regional rotation flap. There is discoloration at the tip of flap along the tibial border about 2 cm. This will be monitored and observed closely. Patient was started on adjuvant hyperbaric oxygen therapy. He has tolerated same uneventfully. - Additional Data Intake & Output - Last 24 hours: Intake & Output 06/23/18 06/24/18 06/25/18 06/26/18 05:59 05:59 05:59 05:59 Intake Total 2140 / 2140 3080 / 3080 1950 / 1950 460 / 460 Output Total 1275 / 1275 1999 / 1999 225 / 225 Balance 865 / 865 1080 / 1080 1725 / 1725 460 / 460 Weight 198 lb 198 lb 200 lb - Labs 06/24/18 04:20 06/24/18 04:20 Assessment and Plan (1) Sepsis affecting skin Problem details: Patient started on local wound care consisting of chlorhexidine washes, MIST treatment, Topical antibiotics and protect to dressing with Kerlix bandage. He is on broad-spectrum intravenous antibiotics which will be reevaluated and probably De-escalated later. Status: Acute Current Visit: Yes - Narrative A/P Narrative: Assessment: Compromise regional rotation flap with discoloration of the terminal 2 cm. Overall cultures positive for choroidal is negative staphylococci. In view of patient's history toxic process is suspected and patient being Treated with broad-spectrum antibiotics. Appreciate infectious disease consult and recommendations. Plan: Continue current local wound care and hyperbaric oxygen therapy. - Time Spent With Patient Total time spent is greater than 50% in coordination of care (as documented) at patient's floor/unit and/or counseling patient: 15 - 24 minutes
[2018-06-25] MEDS: ACETAMINOPHEN 325 MG TABLET PO PRN (19:55)
[2018-06-25] MEDS: TAMSULOSIN 0.4 MG CAPSULE PO SCH (21:08)
[2018-06-26] MEDS: oxyCODONE HCL 5 MG TABLET PO PRN ×5 (02:18→22:19)
[2018-06-26] MEDS: CEFEPIME 2 GM VIAL IV SCH ×3 (05:33→22:19)
[2018-06-26] MEDS: 0.9 % SODIUM CHLORIDE 10 ML SYRINGE IV SCH ×3 (05:34→20:39)
[2018-06-26] MEDS: LEVOTHYROXINE 150 MCG TABLET PO SCH (07:00)
[2018-06-26] MEDS: PANTOPRAZOLE 40 MG TABLET PO SCH (07:00)
--- NOTE | 2018-06-26 08:24 | Internal Med Progress Note ---
Medical - PN: Subj Patient information: Note initiated : 06/26/18 at 8:21 am Service Date, if different from initiated Date: [] Patient: Aakash Arellano 73 y/o M admitted on 06/20/18 for Debridement and Pulse Lavage Right Foot. Chief Complaint: [] Interval history: Mr. Arellano is a 73 year old M with a history of treated hypertension, treated hypothyroidism, chronic pain, BPH who presents back to the emergency department with worsening redness and pain of his right lower extremity. On Monday, 06/15, patient fell on rocks [place] the river[place]. He is going to be camping with friends. 2 friends brought him to the emergency department. He had significant injury along the right sheets with a distal "J" laterally. He received irrigation of the wound with subsequent stitches. Antibiotics were prescribed, however the patient was one aware and it was not until Monday, 3 days later that he was called by the pharmacy to tile picker her prescription for cephalexin. He started taking that on Monday. On Monday prior to starting antibiotics he noticed that his leg was getting red and painful. On Monday he continued to be red and painful spot of oral antibiotics. He has had a double up on some of his usual home oxycodone to control the pain (from 10-20 mg every 4 hours as needed). Monday was seen in the emergency department here. There is erythema and pain. Margins were noted , he was given a dose of ceftriaxone and continued on cephalexin and asked to return if he did not improve. He returns today due to worsening erythema and pain of his right leg. Patient denies any fevers or chills associated with this. He's been mostly on the couch with his leg elevated. It's quite painful to get up, to move and to try to ambulate to the restroom. He's had no associated nausea or vomiting, no shaking chills. In the emergency department, erythema had progressed beyond the margins both distally and proximally (more so distally). He had an area of breakdown about a quarter of the way down from the proximal end of the laceration. There is concern this could be vascular insufficiency, he underwent CT angiography of the lower extremity showing patent vascular flow to the right leg. There was no notation of subcutaneous edema, no notation of any fascial changes. Patient's been admitted for further treatment of cellulitis associated with right leg laceration which has not responded to outpatient therapy. 06/21 Feels well today. Pain is decreased in the leg, also notes her is decreased edema. Blood cultures without growth. No areas of purulence/drainage to culture. Being seen by wound care. 06/22 Patient seen and examined today, seen with Dr. Irving, also discussed with Dr. Agudelo. Some necrosis in the midportion of the suture line, some mild purulence. Cultures taken. Pain in the leg continues with ambulation, though not as painful when he first came in. Edema continues to improve. 06/23 Status post debridement and washout in the OR by Dr. Agudelo this morning. A little groggy after anesthesia. No new complaints. Case discussed with ID this morning, we'll send screening for hepatitis and HIV given demographics. Patient believes he is had negative hepatitis screen in the past, though that was several years ago. Bacterial cultures as well as AFB, fungal cultures and tissue biopsy were collected intraoperatively. 06/24 Seen on rounds. No new complaints this morning. Superficial culture obtained on 06/22 growing coag-negative staph. From the intra-operative culture, Gram stain shows rare gram-positive cocci, culture pending. ARMANDO stain was negative for fungal elements. Remains on Zyvox and cefepime. 06/25 -Seen on a rounds. Discussed with nursing. Discussed with wound care nurse. -To start hyperbaric oxygen today -Continues on broad antimicrobials, no new culture data 06/26 slept well, no new complaints. ambulated to bathroom with some discomfort to the leg. Review of Systems: denies headache/fever/chills/nausea/vomiting/chest or abdominal pain/cough/ dyspnea/diarrhea. Otherwise see above. - Constitutional Vitals: Vital Signs Temp Pulse Resp BP Pulse Ox 97.7 F 67 12 108/70 93 06/26/18 04:00 06/26/18 04:00 06/26/18 04:00 06/26/18 04:00 06/26/18 04:00 Period Temp Pulse Resp BP Sys/Rios Pulse Ox Last 24 Hr 97.7 F-98.3 F 67-80 12-15 107-130/68-76 90-95 Intake and Output 0906/26/18 06/26/18 21:59 05:59 13:59 Intake Total 460 / 460 50 / 50 Balance 460 / 460 50 / 50 Weight 90.945 kg 90.945 kg Intake & Output: Intake & Output 06/25/18 06/26/18 06/26/18 21:59 05:59 13:59 Intake Total 460 / 460 50 / 50 Balance 460 / 460 50 / 50 Weight 90.945 kg 90.945 kg Intake: Oral 460 / 460 50 / 50 Other: Meal Dinner Percent of Meal Consumed 100% Stool Size Small Stool Consistency Loose # Voids 3 1 # Bowel Movements 1 Exam: General: Alert, Awake, No acute Distress HEENT: EOMI, CV: RRR, No murmurs, normal s1/s2 Pulm: Clear b/l, no wheezing/rhonchi/rales Abd: soft, nontender, +BS x4 Ext: no clubbing/cyanosis. Distal right leg and dressings. Neuro: Alert, no focal deficits, moves all extremities Skin: warm/dry Medical - PN: Obj Da - Labs CBC & Chem 7: 06/24/18 04:20 06/24/18 04:20 Labs: Abnormal Lab Results 06/24/18 06/24/18 06/23/18 04:20 04:20 03:45 RBC 3.44 L Hgb 12.0 L Hct 35.1 L MCV 102.2 H MCH 35.0 H RDW 15.9 H Gran % 82.1 H Lymph % (Auto) 11.7 L Lymph # (Auto) 1.1 L ESR Creatinine 0.5 L Glucose 158 H C-Reactive Protein 5.2 H 06/23/18 03:45 RBC Hgb Hct MCV MCH RDW Gran % Lymph % (Auto) Lymph # (Auto) ESR 56 H Creatinine Glucose C-Reactive Protein Meds: Medications Acetaminophen (Tylenol) 650 mg PO Q6HP PRN PRN Reason: PAIN/FEVER > 101 Last Admin: 06/25/18 19:55 Dose: 650 mg Ascorbic Acid (Vitamin C) 1,000 mg PO DAILY [facility] Last Admin: 06/25/18 12:15 Dose: 1,000 mg Bisacodyl (Dulcolax) 10 mg VT DAILYP PRN PRN Reason: Constipation Cefepime HCl (Maxipime) 2 gm IV Q8H [facility] Last Admin: 06/26/18 05:33 Dose: 2 gm Docusate Sodium (Colace) 100 mg PO BID [facility] Last Admin: 06/25/18 21:08 Dose: 100 mg Enoxaparin Sodium (Lovenox) 40 mg SQ DAILY [facility] Last Admin: 06/25/18 12:15 Dose: 40 mg Levothyroxine Sodium (Synthroid) 150 mcg PO ACB [facility] Last Admin: 06/26/18 07:00 Dose: 150 mcg Linezolid (Zyvox) 600 mg PO Q12 [facility] Last Admin: 06/25/18 21:08 Dose: 600 mg Magnesium Hydroxide (Milk Of Magnesia) 30 ml PO BIDP PRN PRN Reason: Constipation Last Admin: 06/23/18 12:41 Dose: 30 ml Morphine Sulfate (Morphine) 6 mg IV Q4HP PRN PRN Reason: PAIN LEVEL > 6 Last Admin: 06/25/18 21:06 Dose: 6 mg Multivitamins/Minerals (Ocuvite) 1 tab PO BID [facility] Last Admin: 06/25/18 21:08 Dose: 1 tab Nicotine (Nicoderm) 21 mg TOPICAL DAILY@1000 [facility] Last Admin: 06/25/18 12:15 Dose: 21 mg Ondansetron HCl (Zofran) 4 mg IV Q6HP PRN PRN Reason: Nausea And Vomiting Oxycodone HCl (Roxicodone) 10 mg PO Q4HP PRN PRN Reason: PAIN LEVEL 3-6 Last Admin: 06/26/18 07:00 Dose: 10 mg Pantoprazole Sodium (Protonix) 40 mg PO QAMAC [facility] Last Admin: 06/26/18 07:00 Dose: 40 mg Polyethylene Glycol (Miralax) 17 gm PO DAILYP PRN PRN Reason: Constipation Last Admin: 06/23/18 17:27 Dose: 17 gm Sodium Chloride (Saline Flush) 10 ml IV Q8 [facility] Last Admin: 06/26/18 05:34 Dose: 10 ml Tamsulosin HCl (Flomax) 0.4 mg PO HS [facility] Last Admin: 06/25/18 21:08 Dose: 0.4 mg Zinc Sulfate (Zinc) 50 mg PO DAILY [facility] Last Admin: 06/25/18 12:17 Dose: 50 mg Medical - PN: A/P - Time Spent With Patient Total time spent is greater than 50% in coordination of care (as documented) at patient's floor/unit and/or counseling patient: - Narrative A/P Narrative: 73-year-old male presents with worsening erythema and pain of the right lower extremity after a wound from falling on rocks 5 days prior to presentation. Cellulitis of the right leg. status post debridement in the OR, with resection of necrotic superficial tissue. Remains on cefepime and linezolid (also with anti-toxin effect, vs. vanco) for broad coverage of gram positive and gram negative pathogens from wound associated with freshwater exposure, including coverage for Aeromonas, Pseudomonas as well as staph and strep. HIV screen negative. Hepatitis screen pending. For hyperbaric oxygen today and ?tomorrow. Plan: Per discussion with infectious disease specialist. Patient will go on Cipro / Zyvox orally for total antibiotic course 4 weeks. Patient follow-up Dr. Irving in 2 weeks. Hypertension. Usually controlled on medications. Plan: Continue home meds. Hypothyroidism. On replacement. Plan: Continue. Degenerative disc disease with chronic pain on chronic opioids. Plan: Continue home oxycodone, and as needed IV morphine for pain control
--- NOTE | 2018-06-26 08:31 | Discharge Summary ---
Medical - DS: Prov Patient information: Note initiated : 06/26/18 at 8:25 am Service Date, if different from initiated Date: [] Patient: Aakash Arellano 73 y/o M admitted on 06/20/18 for Debridement and Pulse Lavage Right Foot. Chief Complaint: [] Date of admission: 06/20/18 17:02 Primary care physician: Eddie Sandoval Jr, MD Consults: 06/20/18 Consult to Physician [CONS] Stat Comment: Consulting Provider: Geri Quiñones Reason For Exam: Physician to Consult 06/21/18 09:26 Consult to Physician [CONS] Routine Comment: Right Leg Wound Infection Consulting Provider: Marco Irving Reason For Exam: Physician to Consult 06/21/18 09:28 Consult to Physician [CONS] Routine Comment: Consulting Provider: Arturo Agudelo Reason For Exam: Physician to Consult Medical - DS: Meds - Discharge Medications Prescriptions: Moxifloxacin HCl [Avelox] 400 mg PO QDAY #22 tab Active and Home Medications: Home Medications Cholecalciferol (Vitamin D3) [Dialyvite Vitamin D] 5,000 unit PO DAILY 03/05/16 [History Confirmed 06/20/18 Last Taken 06/19/18 08:00] Fish Oil 1,000 mg PO DAILY 03/05/16 [History Confirmed 06/20/18 Last Taken 06/19 08:00] Folic Acid 1 mg PO ONCE 03/05/16 [History Confirmed 06/20/18 Last Taken 08:00] Levothyroxine [Synthroid] 150 mcg PO DAILY 03/05/16 [History Confirmed 06/20/18 Last Taken 06/19/18 07:00] Sildenafil Citrate [Viagra] 50 mg PO PRN PRN 03/05/16 [History Confirmed Last Taken 04/20/18] Tamsulosin [Flomax] 0.4 mg PO HS 12/19/16 [History Confirmed 06/20/18 Last Taken 06/19/18 20:00] Vit A/Vit C/Vit E/Zinc/Copper [Preservision Areds Softgel] 1 each PO BID [History Confirmed 06/21/18 Last Taken 06/19/18 20:00] Cephalexin [Keflex] 500 mg PO QID #40 cap 06/19/18 [Rx Confirmed 06/20/18 Last Taken Unknown] oxyCODONE HCL [Oxycodone HCl] 1 tab PO QIDP PRN 06/19/18 [History Confirmed 03/02 Last Taken 06/20/18 11:00] Medical - DS: Hosp Hospital course: Mr. Arellano is a 73 year old M Mr. Arellano is a 73 year old M with a history of treated hypertension, treated hypothyroidism, chronic pain, BPH who presents back to the emergency department with worsening redness and pain of his right lower extremity. On Monday, 06/15, patient fell on rocks [place] He is going to be camping with friends. 2 friends brought him to the emergency department. He had significant injury along the right sheets with a distal "J" laterally. He received irrigation of the wound with subsequent stitches. Antibiotics were prescribed, however the patient was one aware and it was not until Monday, 3 days later that he was called by the pharmacy to picker machine operator her prescription for cephalexin. He started taking that on Monday. On Monday prior to starting antibiotics he noticed that his leg was getting red and painful. On Monday he continued to be red and painful spot of oral antibiotics. He has had a double up on some of his usual home oxycodone to control the pain (from 10-20 mg every 4 hours as needed). Monday was seen in the emergency department here. There is erythema and pain. Margins were noted , he was given a dose of ceftriaxone and continued on cephalexin and asked to return if he did not improve. He returns today due to worsening erythema and pain of his right leg. Patient denies any fevers or chills associated with this. He's been mostly on the couch with his leg elevated. It's quite painful to get up, to move and to try to ambulate to the restroom. He's had no associated nausea or vomiting, no shaking chills. In the emergency department, erythema had progressed beyond the margins both distally and proximally (more so distally). He had an area of breakdown about a quarter of the way down from the proximal end of the laceration. There is concern this could be vascular insufficiency, he underwent CT angiography of the lower extremity showing patent vascular flow to the right leg. There was no notation of subcutaneous edema, no notation of any fascial changes. Patient's been admitted for further treatment of cellulitis associated with right leg laceration which has not responded to outpatient therapy. 06/21 Feels well today. Pain is decreased in the leg, also notes her is decreased edema. Blood cultures without growth. No areas of purulence/drainage to culture. Being seen by wound care. 06/22 Patient seen and examined today, seen with Dr. Irving, also discussed with Dr. Agudelo. Some necrosis in the midportion of the suture line, some mild purulence. Cultures taken. Pain in the leg continues with ambulation, though not as painful when he first came in. Edema continues to improve. 06/23 Status post debridement and washout in the OR by Dr. Agudelo this morning. A little groggy after anesthesia. No new complaints. Case discussed with ID this morning, we'll send screening for hepatitis and HIV given demographics. Patient believes he is had negative hepatitis screen in the past, though that was several years ago. Bacterial cultures as well as AFB, fungal cultures and tissue biopsy were collected intraoperatively. 06/24 Seen on rounds. No new complaints this morning. Superficial culture obtained on 06/22 growing coag-negative staph. From the intra-operative culture, Gram stain shows rare gram-positive cocci, culture pending. ARMANDO stain was negative for fungal elements. Remains on Zyvox and cefepime. 06/25 -Seen on a rounds. Discussed with nursing. Discussed with wound care nurse. -To start hyperbaric oxygen today -Continues on broad antimicrobials, no new culture data 06/26 slept well, no new complaints. ambulated to bathroom with some discomfort to the leg. Discharge diagnosis: Cellulitis right lower leg with debridement of necrotic superficial tissue - Time Spent with Patient Total time spent providing and/or coordinating discharge services: Greater than 30 minutes Medical - DS: Exam - Constitutional Vitals: Vital Signs Temp Pulse Resp BP BP Pulse Ox 06/26/18 04:00 97.7 F 67 12 108/70 93 06/26/18 00:00 98.3 F 77 12 130/76 93 06/25/18 20:00 98.3 F 77 12 122/76 90 06/25/18 16:00 98 F 80 15 107/76 94 06/25/18 12:00 98.1 F 75 14 119/68 95 Intake and Output 06/25/18 06/26/18 06/26/18 21:59 05:59 13:59 Intake Total 460 / 460 50 / 50 Balance 460 / 460 50 / 50 Intake: Oral 460 / 460 50 / 50 Other: Meal Dinner Percent of Meal Consumed 100% Stool Size Small Stool Consistency Loose # Voids 3 1 # Bowel Movements 1 Weight 90.945 kg 90.945 kg Medical - DS: Data Labs on day of discharge: Preliminary micro results at discharge 06/23/18 14:17 Anaerobic Culture - Preliminary Leg - Lower Right Wound Culture - Preliminary Medical - DS: A/P - Patient/Caregiver Discharge Instructions Activity: increase activity as tolerated Diet: Regular Diet - Follow up Plan Follow up with: Eddie Sandoval Jr, MD [Primary Care Provider] - Marco Irving MD [Physician] - Disposition: Xfer SNF Prognosis: Fair Rehab Potential: Fair I certify that the patient requires SNF services: Yes
[2018-06-26] MEDS: LINEZOLID 600 MG TABLET PO SCH ×2 (09:07→20:38)
[2018-06-26] MEDS: ASCORBIC ACID 500 MG TABLET PO SCH (09:07)
[2018-06-26] MEDS: VIT A,C & E/LUTEIN/MINERALS TABLET PO SCH ×2 (09:07→20:38)
[2018-06-26] MEDS: ZINC SULFATE 50 MG CAPSULE PO SCH (09:07)
[2018-06-26] MEDS: ENOXAPARIN 40 MG/0.4 ML SYRINGE SQ SCH (09:08)
[2018-06-26] MEDS: DOCUSATE SODIUM 100 MG CAPSULE PO SCH ×2 (09:35→20:38)
[2018-06-26] MEDS: NICOTINE 21 MG PATCH TOPICAL SCH (12:01)
[2018-06-26 12:43] LABS: Hepatitis A Antibody Total NON-REACTIVE (NON-REACTIVE); Hepatitis B SAB Quant <5 mIU/mL (> OR = 10); Hepatitis B Surface Antigen NON-REACTIVE (NON-REACTIVE); Hepatitis C Virus Antibody NON-REACTIVE (NON-REACTIVE)
[2018-06-26] MEDS ORDERED: BENZOCAINE/MENTHOL 1 LOZENGE PO PRN (17:59)
[2018-06-26] MEDS ORDERED: BENZOCAINE/MENTHOL 1 LOZENGE PO ONE (18:07)
--- NOTE | 2018-06-26 19:39 | General Surgery Progress Note ---
Subjective Narrative: Note initiated : 06/26/18 at 7:36 pm Service Date, if different from initiated Date: [] Patient: Aakash Arellano 73 y/o M admitted on 06/20/18 for Debridement and Pulse Lavage Right Foot. Chief Complaint: [] No specific complaints. Patient had an uneventful night yesterday. Saw him this morning and examined his wounds along with XOCHILT RN. Objective Temp Pulse Resp BP Pulse Ox 98.0 F 79 16 125/76 94 06/26/18 16:00 06/26/18 16:00 06/26/18 11:56 06/26/18 16:00 06/26/18 16:00 Afebrile. Vital signs are stable. No changes in general physical examination. Local examination: Bright red pink granulating wound base. 1.5 cm localized necrotic tip of skin flap. We will observe this at this time. Responding to hyperbaric oxygen treatment. Reviewed ID note and antibiotic treatment plan. - Additional Data Intake & Output - Last 24 hours: Intake & Output 06/24/18 06/25/18 06/26/18 06/27/18 05:59 05:59 05:59 05:59 Intake Total 3080 / 3080 1950 / 1950 510 / 510 480 / 480 Output Total 1999 / 1999 225 / 225 Balance 1080 / 1080 1725 / 1725 510 / 510 480 / 480 Weight 198 lb 200 lb 200 lb 8 oz - Labs 06/24/18 04:20 06/24/18 04:20 Assessment and Plan (1) Sepsis affecting skin Problem details: Patient started on local wound care consisting of chlorhexidine washes, MIST treatment, Topical antibiotics and protect to dressing with Kerlix bandage. He is on broad-spectrum intravenous antibiotics which will be reevaluated and probably De-escalated later. Status: Acute Current Visit: Yes - Narrative A/P Narrative: Assessment: Progressing well. Plan: Continue present wound care and antibiotics. Continue HBO T. Reassess for further debridement after 5 HBO treatments. - Time Spent With Patient Total time spent is greater than 50% in coordination of care (as documented) at patient's floor/unit and/or counseling patient:
[2018-06-26] MEDS: TAMSULOSIN 0.4 MG CAPSULE PO SCH (20:38)
[2018-06-26] MEDS: ACETAMINOPHEN 325 MG TABLET PO PRN (22:19)
[2018-06-27] MEDS: NICOTINE 21 MG PATCH TOPICAL SCH (00:20)
[2018-06-27] MEDS: CEFEPIME 2 GM VIAL IV SCH ×3 (06:06→20:54)
[2018-06-27] MEDS: 0.9 % SODIUM CHLORIDE 10 ML SYRINGE IV SCH ×3 (06:35→20:54)
[2018-06-27] MEDS: LEVOTHYROXINE 150 MCG TABLET PO SCH (06:36)
[2018-06-27] MEDS: ZINC SULFATE 50 MG CAPSULE PO SCH (07:36)
[2018-06-27] MEDS: PANTOPRAZOLE 40 MG TABLET PO SCH (07:36)
[2018-06-27] MEDS: ASCORBIC ACID 500 MG TABLET PO SCH (07:36)
[2018-06-27] MEDS: LINEZOLID 600 MG TABLET PO SCH ×2 (07:36→20:52)
[2018-06-27] MEDS: ENOXAPARIN 40 MG/0.4 ML SYRINGE SQ SCH (07:36)
[2018-06-27] MEDS: VIT A,C & E/LUTEIN/MINERALS TABLET PO SCH ×2 (07:36→20:52)
[2018-06-27] MEDS: DOCUSATE SODIUM 100 MG CAPSULE PO SCH (07:37)
--- NOTE | 2018-06-27 07:49 | Internal Med Progress Note ---
Medical - PN: Subj Patient information: Note initiated : 06/27/18 at 7:47 am Service Date, if different from initiated Date: [] Patient: Aakash Arellano 73 y/o M admitted on 06/20/18 for Debridement and Pulse Lavage Right Foot. Chief Complaint: [] Interval history: Mr. Arellano is a 73 year old M with a history of treated hypertension, treated hypothyroidism, chronic pain, BPH who presents back to the emergency department with worsening redness and pain of his right lower extremity. On Monday, 06/15, patient fell on [place] He is going to be camping with friends. 2 friends brought him to the emergency department. He had significant injury along the right sheets with a distal "J" laterally. He received irrigation of the wound with subsequent stitches. Antibiotics were prescribed, however the patient was one aware and it was not until Monday, 3 days later that he was called by the pharmacy to pick up operator her prescription for cephalexin. He started taking that on Monday. On Monday prior to starting antibiotics he noticed that his leg was getting red and painful. On Monday he continued to be red and painful spot of oral antibiotics. He has had a double up on some of his usual home oxycodone to control the pain (from 10-20 mg every 4 hours as needed). Monday was seen in the emergency department here. There is erythema and pain. Margins were noted , he was given a dose of ceftriaxone and continued on cephalexin and asked to return if he did not improve. He returns today due to worsening erythema and pain of his right leg. Patient denies any fevers or chills associated with this. He's been mostly on the couch with his leg elevated. It's quite painful to get up, to move and to try to ambulate to the restroom. He's had no associated nausea or vomiting, no shaking chills. In the emergency department, erythema had progressed beyond the margins both distally and proximally (more so distally). He had an area of breakdown about a quarter of the way down from the proximal end of the laceration. There is concern this could be vascular insufficiency, he underwent CT angiography of the lower extremity showing patent vascular flow to the right leg. There was no notation of subcutaneous edema, no notation of any fascial changes. Patient's been admitted for further treatment of cellulitis associated with right leg laceration which has not responded to outpatient therapy. 06/21 Feels well today. Pain is decreased in the leg, also notes her is decreased edema. Blood cultures without growth. No areas of purulence/drainage to culture. Being seen by wound care. 06/22 Patient seen and examined today, seen with Dr. Irving, also discussed with Dr. Agudelo. Some necrosis in the midportion of the suture line, some mild purulence. Cultures taken. Pain in the leg continues with ambulation, though not as painful when he first came in. Edema continues to improve. 06/23 Status post debridement and washout in the OR by Dr. Agudelo this morning. A little groggy after anesthesia. No new complaints. Case discussed with ID this morning, we'll send screening for hepatitis and HIV given demographics. Patient believes he is had negative hepatitis screen in the past, though that was several years ago. Bacterial cultures as well as AFB, fungal cultures and tissue biopsy were collected intraoperatively. 06/24 Seen on rounds. No new complaints this morning. Superficial culture obtained on 06/22 growing coag-negative staph. From the intra-operative culture, Gram stain shows rare gram-positive cocci, culture pending. ARMANDO stain was negative for fungal elements. Remains on Zyvox and cefepime. 06/25 -Seen on a rounds. Discussed with nursing. Discussed with wound care nurse. -To start hyperbaric oxygen today -Continues on broad antimicrobials, no new culture data 06/26 slept well, no new complaints. ambulated to bathroom with some discomfort to the leg. 06/27 soft stools, too much form for lab to run a c.diff. stool softeners stopped yesterday. nausea. Review of Systems: denies headache/fever/chills/vomiting/chest or abdominal pain/cough/dyspnea/ Otherwise see above. - Constitutional Vitals: Vital Signs Temp Pulse Resp BP Pulse Ox 98.5 F 68 18 112/71 96 06/27/18 04:00 06/27/18 04:00 06/27/18 04:00 06/27/18 04:00 06/27/18 04:00 Period Temp Pulse Resp BP Sys/Rios Pulse Ox Last 24 Hr 97.8 F-98.8 F 68-82 12-20 103-127/67-76 94-96 Intake and Output 06/26/18 06/27/18 06/27/18 21:59 05:59 13:59 Intake Total 275 / 275 Balance 275 / 275 Weight 90.038 kg Intake & Output: Intake & Output 06/26/18 06/27/18 06/27/18 21:59 05:59 13:59 Intake Total 275 / 275 Balance 275 / 275 Weight 90.038 kg Intake: Oral 275 / 275 Other: Stool Size Small Stool Color Brown Stool Consistency Soft # Voids 1 # Bowel Movements 1 Exam: General: Alert, Awake, No acute Distress HEENT: EOMI, CV: RRR, No murmurs, normal s1/s2 Pulm: Clear b/l, no wheezing/rhonchi/rales Abd: soft, nontender, +BS x4 Ext: no clubbing/cyanosis. Distal right leg with dressings in place Neuro: Alert, no focal deficits, moves all extremities Skin: warm/dry Medical - PN: Obj Da - Labs CBC & Chem 7: 06/24/18 04:20 06/24/18 04:20 Labs: Abnormal Lab Results 06/23/18 11:27 Hep Bs Antibody, Quant <5 A Meds: Medications Acetaminophen (Tylenol) 650 mg PO Q6HP PRN PRN Reason: PAIN/FEVER > 101 Last Admin: 06/26/18 22:19 Dose: 650 mg Ascorbic Acid (Vitamin C) 1,000 mg PO DAILY [facility] Last Admin: 06/27/18 07:36 Dose: 1,000 mg Bisacodyl (Dulcolax) 10 mg [place] DAILYP PRN PRN Reason: Constipation Cefepime HCl (Maxipime) 2 gm IV Q8H [facility] Last Admin: 06/27/18 06:06 Dose: 2 gm Docusate Sodium (Colace) 100 mg PO BID [facility] Last Admin: 06/27/18 07:37 Dose: Not Given Enoxaparin Sodium (Lovenox) 40 mg SQ DAILY [facility] Last Admin: 06/27/18 07:36 Dose: 40 mg Levothyroxine Sodium (Synthroid) 150 mcg PO ACB [facility] Last Admin: 06/27/18 06:36 Dose: 150 mcg Linezolid (Zyvox) 600 mg PO Q12 [facility] Last Admin: 06/27/18 07:36 Dose: 600 mg Magnesium Hydroxide (Milk Of Magnesia) 30 ml PO BIDP PRN PRN Reason: Constipation Last Admin: 06/23/18 12:41 Dose: 30 ml Morphine Sulfate (Morphine) 6 mg IV Q4HP PRN PRN Reason: PAIN LEVEL > 6 Last Admin: 06/27/18 06:16 Dose: 6 mg Multivitamins/Minerals (Ocuvite) 1 tab PO BID [facility] Last Admin: 06/27/18 07:36 Dose: 1 tab Nicotine (Nicoderm) 21 mg TOPICAL DAILY@1000 [facility] Last Admin: 06/27/18 00:20 Dose: 21 mg Ondansetron HCl (Zofran) 4 mg IV Q6HP PRN PRN Reason: Nausea And Vomiting Oxycodone HCl (Roxicodone) 10 mg PO Q4HP PRN PRN Reason: PAIN LEVEL 3-6 Last Admin: 06/26/18 22:19 Dose: 10 mg Pantoprazole Sodium (Protonix) 40 mg PO QAMAC [facility] Last Admin: 06/27/18 07:36 Dose: 40 mg Polyethylene Glycol (Miralax) 17 gm PO DAILYP PRN PRN Reason: Constipation Last Admin: 06/23/18 17:27 Dose: 17 gm Sodium Chloride (Saline Flush) 10 ml IV Q8 [facility] Last Admin: 06/27/18 06:35 Dose: 10 ml Tamsulosin HCl (Flomax) 0.4 mg PO HS [facility] Last Admin: 06/26/18 20:38 Dose: 0.4 mg Throat Lozenges (Cepacol) 1 lozenge PO PRN PRN PRN Reason: Sore Throat Last Admin: 06/27/18 06:41 Dose: 1 lozenge Zinc Sulfate (Zinc) 50 mg PO DAILY [facility] Last Admin: 06/27/18 07:36 Dose: 50 mg Medical - PN: A/P - Time Spent With Patient Total time spent is greater than 50% in coordination of care (as documented) at patient's floor/unit and/or counseling patient: - Narrative A/P Narrative: 73-year-old male presents with worsening erythema and pain of the right lower extremity after a wound from falling on rocks 5 days prior to presentation. Cellulitis of the right leg. status post debridement in the OR, with resection of necrotic superficial tissue. Remains on cefepime and linezolid (also with anti-toxin effect, vs. vanco) for broad coverage of gram positive and gram negative pathogens from wound associated with freshwater exposure, including coverage for Aeromonas, Pseudomonas as well as staph and strep. HIV screen negative. Hepatitis screen pending. Plan: Per discussion with infectious disease specialist once d/c'd will go on Cipro / Zyvox orally for total antibiotic course 4 weeks. Patient follow-up Dr. Irving in 2 weeks. continue hyperbaric o2 and d/c when ok per wound surgeon Hypertension. Usually controlled on medications. Plan: Continue home meds. Hypothyroidism. On replacement. Plan: Continue. Degenerative disc disease with chronic pain on chronic opioids. Plan: Continue home oxycodone, and as needed IV morphine for pain control
--- NOTE | 2018-06-27 09:02 | Surgical Pathology Report ---
HISTOLOGY SPECIMEN MICROSCOPIC DIAGNOSIS SKIN AND SOFT TISSUE, RIGHT LOWER LEG WOUND, EXCISION: -- GANGRENOUS ULCERATION WITH FAT NECROSIS, HEMORRHAGE, ACUTE/CHRONIC INFLAMMATION, FIBROSIS AND SCALE CRUST. -- NO EPITHELIAL ATYPIA OR MALIGNANCY IDENTIFIED. (ACP:sln) PROCEDURAL IMPRESSION Right leg infected wound flap; necrosis and gangrene of skin. GROSS DESCRIPTION Received in formalin labeled with the patient information and designated as right lower leg wound, is a 5.0 x 2.5 by up to 1.2 cm fragment of tissue with attached skin. Attached to the skin is a 4.5 x 2.1 x 0.1 cm scabbed area. The margin is inked black. The specimen is serially sectioned with food service sales representatives sections submitted in one cassette. (MAXI:evelio) Electronically Signed by: Jose Cruz Tate M.D.
[2018-06-27] MEDS ORDERED: ONDANSETRON 4 MG/2 ML VIAL IV PRN (11:01)
[2018-06-27] MEDS: LACTOBACILLUS 1 CAPSULE PO SCH ×2 (11:36→20:52)
[2018-06-27] MEDS ORDERED: CEFEPIME 2 GM VIAL IV SCH (11:45)
--- NOTE | 2018-06-27 14:53 | General Surgery Progress Note ---
Subjective Narrative: Note initiated : 06/27/18 at 2:51 pm Service Date, if different from initiated Date: [] Patient: Aakash Arellano 73 y/o M admitted on 06/20/18 for Debridement and Pulse Lavage Right Foot. Chief Complaint: [] I saw patient along with Candice ESPINOZA. Reviewed overnight events. Patient complained of loose stools. Stool softeners are now discontinued Objective Temp Pulse Resp BP Pulse Ox 96.9 F L 66 18 139/80 99 06/27/18 12:00 06/27/18 12:00 06/27/18 12:00 06/27/18 12:00 06/27/18 12:00 Afebrile. Vital signs are stable. No changes in general physical examination. The right leg wound is clean. There is further continuing demarcation of the dried necrosed tip of the flap along the tibial border. No drainage and no odor. No evidence of purulence. Wound bed is granulating well. There is no edema of the periwound tissues. Patient is tolerating hyperbaric oxygen therapy well. I spoke with Dr. Dos Santos, hospitalist physician. We will reassess the status of wound in the next 48 hours or so. Patient would've completed 5 of 10 HBO treatments by then. - Additional Data Intake & Output - Last 24 hours: Intake & Output 06/25/18 06/26/18 06/27/18 06/28/18 05:59 05:59 05:59 05:59 Intake Total 1950 / 1950 510 / 510 755 / 755 Output Total 225 / 225 350 / 350 Balance 1725 / 1725 510 / 510 755 / 755 -350 / -350 Weight 200 lb 200 lb 8 oz 198 lb 8 oz - Labs 06/24/18 04:20 06/24/18 04:20 Assessment and Plan (1) Sepsis affecting skin Problem details: Patient started on local wound care consisting of chlorhexidine washes, MIST treatment, Topical antibiotics and protect to dressing with Kerlix bandage. He is on broad-spectrum intravenous antibiotics which will be reevaluated and probably De-escalated later. Status: Acute Current Visit: Yes - Time Spent With Patient Total time spent is greater than 50% in coordination of care (as documented) at patient's floor/unit and/or counseling patient: Assessment: Satisfactory progress. Plan: Continue present treatment. less than 15 minutes
[2018-06-27] MEDS: HYDROCORTISONE CRM 1% TUBE 30GM TOPICAL PRN (15:19)
[2018-06-27] MEDS: NICOTINE 14 MG PATCH TOPICAL SCH (15:20)
[2018-06-27] MEDS: oxyCODONE HCL 5 MG TABLET PO PRN ×2 (15:20→20:57)
[2018-06-27] MEDS: TAMSULOSIN 0.4 MG CAPSULE PO SCH (20:52)
[2018-06-27] MEDS: ACETAMINOPHEN 325 MG TABLET PO PRN (20:57)
[2018-06-28] MEDS: CEFEPIME 2 GM VIAL IV SCH ×3 (05:15→21:46)
[2018-06-28] MEDS: 0.9 % SODIUM CHLORIDE 10 ML SYRINGE IV SCH ×3 (05:16→21:47)
[2018-06-28] MEDS: LEVOTHYROXINE 150 MCG TABLET PO SCH (07:14)
--- NOTE | 2018-06-28 07:27 | Internal Med Progress Note ---
Medical - PN: Subj Patient information: Note initiated : 06/28/18 at 7:26 am Service Date, if different from initiated Date: [] Patient: Aakash Arellano 73 y/o M admitted on 06/20/18 for Debridement and Pulse Lavage Right Foot. Chief Complaint: [] Interval history: Mr. Arellano is a 73 year old M with a history of treated hypertension, treated hypothyroidism, chronic pain, BPH who presents back to the emergency department with worsening redness and pain of his right lower extremity. On Monday, 06/15, patient fell on rocks [place] the [place]. He is going to be camping with friends. 2 friends brought him to the emergency department. He had significant injury along the right sheets with a distal "J" laterally. He received irrigation of the wound with subsequent stitches. Antibiotics were prescribed, however the patient was one aware and it was not until Monday, 3 days later that he was called by the pharmacy to machine operator picker her prescription for cephalexin. He started taking that on Monday. On Monday prior to starting antibiotics he noticed that his leg was getting red and painful. On Monday he continued to be red and painful spot of oral antibiotics. He has had a double up on some of his usual home oxycodone to control the pain (from 10-20 mg every 4 hours as needed). Monday was seen in the emergency department here. There is erythema and pain. Margins were noted , he was given a dose of ceftriaxone and continued on cephalexin and asked to return if he did not improve. He returns today due to worsening erythema and pain of his right leg. Patient denies any fevers or chills associated with this. He's been mostly on the couch with his leg elevated. It's quite painful to get up, to move and to try to ambulate to the restroom. He's had no associated nausea or vomiting, no shaking chills. In the emergency department, erythema had progressed beyond the margins both distally and proximally (more so distally). He had an area of breakdown about a quarter of the way down from the proximal end of the laceration. There is concern this could be vascular insufficiency, he underwent CT angiography of the lower extremity showing patent vascular flow to the right leg. There was no notation of subcutaneous edema, no notation of any fascial changes. Patient's been admitted for further treatment of cellulitis associated with right leg laceration which has not responded to outpatient therapy. 06/21 Feels well today. Pain is decreased in the leg, also notes her is decreased edema. Blood cultures without growth. No areas of purulence/drainage to culture. Being seen by wound care. 06/22 Patient seen and examined today, seen with Dr. Irving, also discussed with Dr. Agudelo. Some necrosis in the midportion of the suture line, some mild purulence. Cultures taken. Pain in the leg continues with ambulation, though not as painful when he first came in. Edema continues to improve. 06/23 Status post debridement and washout in the OR by Dr. Agudelo this morning. A little groggy after anesthesia. No new complaints. Case discussed with ID this morning, we'll send screening for hepatitis and HIV given demographics. Patient believes he is had negative hepatitis screen in the past, though that was several years ago. Bacterial cultures as well as AFB, fungal cultures and tissue biopsy were collected intraoperatively. 06/24 Seen on rounds. No new complaints this morning. Superficial culture obtained on 06/22 growing coag-negative staph. From the intra-operative culture, Gram stain shows rare gram-positive cocci, culture pending. ARMANDO stain was negative for fungal elements. Remains on Zyvox and cefepime. 06/25 -Seen on a rounds. Discussed with nursing. Discussed with wound care nurse. -To start hyperbaric oxygen today -Continues on broad antimicrobials, no new culture data 06/26 slept well, no new complaints. ambulated to bathroom with some discomfort to the leg. 06/27 soft stools, too much form for lab to run a c.diff. stool softeners stopped yesterday. nausea. 06/28 loose stools per patient but none reported by nurse. with perianal irritation. Review of Systems: denies headache/fever/chills/vomiting/chest or abdominal pain/cough/dyspnea. Otherwise see above. - Constitutional Vitals: Vital Signs Temp Pulse Resp BP Pulse Ox 98.6 F 73 12 119/77 96 06/28/18 04:00 06/28/18 04:00 06/28/18 04:00 06/28/18 04:00 06/28/18 04:00 Period Temp Pulse Resp BP Sys/Rios Pulse Ox Last 24 Hr 96.9 F-98.7 F 64-86 12-18 100-148/65-83 94-99 Intake and Output 06/27/18 06/28/18 06/28/18 21:59 05:59 13:59 Intake Total 600 / 600 615 / 615 Output Total 300 / 300 Balance 300 / 300 615 / 615 Weight 89.811 kg Intake & Output: Intake & Output 06/27/18 06/28/18 06/28/18 21:59 05:59 13:59 Intake Total 600 / 600 615 / 615 Output Total 300 / 300 Balance 300 / 300 615 / 615 Weight 89.811 kg Intake: Oral 600 / 600 615 / 615 Output: Void Amount 300 / 300 Other: Meal Dinner sandwich, cheese sticks(2) Percent of Meal Consumed 100% 100% Feeding Ability Independent Independent # Voids 2 1 Exam: General: Alert, Awake, No acute Distress HEENT: EOMI, CV: RRR, No murmurs, normal s1/s2 Pulm: Clear b/l, no wheezing/rhonchi/rales Abd: soft, nontender, +BS x4 Ext: no clubbing/cyanosis. Distal right leg with dressings in place Neuro: Alert, no focal deficits, moves all extremities Skin: warm/dry Medical - PN: Obj Da - Labs CBC & Chem 7: 06/24/18 04:20 06/24/18 04:20 Labs: Abnormal Lab Results 06/23/18 11:27 Hep Bs Antibody, Quant <5 A Meds: Medications Acetaminophen (Tylenol) 650 mg PO Q6HP PRN PRN Reason: PAIN/FEVER > 101 Last Admin: 06/27/18 20:57 Dose: 650 mg Ascorbic Acid (Vitamin C) 1,000 mg PO DAILY [facility] Last Admin: 06/27/18 07:36 Dose: 1,000 mg Bisacodyl (Dulcolax) 10 mg [place] DAILYP PRN PRN Reason: Constipation Cefepime HCl (Maxipime) 2 gm IV Q8H [facility] Last Admin: 06/28/18 05:15 Dose: 2 gm Enoxaparin Sodium (Lovenox) 40 mg SQ DAILY [facility] Last Admin: 06/27/18 07:36 Dose: 40 mg Hydrocortisone (Hc Crm 1%) 1 dose TOPICAL TIDP PRN PRN Reason: Itching Last Admin: 06/27/18 15:19 Dose: 1 dose Lactobacillus Rhamnosus (Culturelle) 1 cap PO BID [facility] Last Admin: 06/27/18 20:52 Dose: 1 cap Levothyroxine Sodium (Synthroid) 150 mcg PO ACB [facility] Last Admin: 06/28/18 07:14 Dose: 150 mcg Linezolid (Zyvox) 600 mg PO Q12 [facility] Last Admin: 06/27/18 20:52 Dose: 600 mg Morphine Sulfate (Morphine) 6 mg IV Q4HP PRN PRN Reason: PAIN LEVEL > 6 Last Admin: 06/28/18 05:10 Dose: 6 mg Multivitamins/Minerals (Ocuvite) 1 tab PO BID [facility] Last Admin: 06/27/18 20:52 Dose: 1 tab Nicotine (Nicoderm) 14 mg TOPICAL DAILY@1400 [facility] Last Admin: 06/27/18 15:20 Dose: 14 mg Ondansetron HCl (Zofran) 4 mg IV Q4HP PRN PRN Reason: Nausea And Vomiting Oxycodone HCl (Roxicodone) 10 mg PO Q4HP PRN PRN Reason: PAIN LEVEL 3-6 Last Admin: 06/27/18 20:57 Dose: 10 mg Pantoprazole Sodium (Protonix) 40 mg PO QAMAC [facility] Last Admin: 06/27/18 07:36 Dose: 40 mg Polyethylene Glycol (Miralax) 17 gm PO DAILYP PRN PRN Reason: Constipation Last Admin: 06/23/18 17:27 Dose: 17 gm Sodium Chloride (Saline Flush) 10 ml IV Q8 [facility] Last Admin: 06/28/18 05:16 Dose: 10 ml Tamsulosin HCl (Flomax) 0.4 mg PO HS [facility] Last Admin: 06/27/18 20:52 Dose: 0.4 mg Throat Lozenges (Cepacol) 1 lozenge PO PRN PRN PRN Reason: Sore Throat Last Admin: 06/27/18 06:41 Dose: 1 lozenge Zinc Sulfate (Zinc) 50 mg PO DAILY [facility] Last Admin: 06/27/18 07:36 Dose: 50 mg Medical - PN: A/P - Time Spent With Patient Total time spent is greater than 50% in coordination of care (as documented) at patient's floor/unit and/or counseling patient: - Narrative A/P Narrative: 73-year-old male presents with worsening erythema and pain of the right lower extremity after a wound from falling on rocks 5 days prior to presentation. Cellulitis of the right leg. status post debridement in the OR, with resection of necrotic superficial tissue. Remains on cefepime and linezolid (also with anti-toxin effect, vs. vanco) for broad coverage of gram positive and gram negative pathogens from wound associated with freshwater exposure, including coverage for Aeromonas, Pseudomonas as well as staph and strep. HIV screen negative. Hepatitis screen pending. Plan: Per discussion with infectious disease specialist once d/c'd will go on Cipro / Zyvox orally for total antibiotic course 4 weeks. Patient follow-up Dr. Irving in 2 weeks. continue hyperbaric o2 and d/c when ok per wound surgeon likely next Monday as he also should have OR debridement on Monday. Hypertension. Usually controlled on medications. Plan: Continue home meds. Hypothyroidism. On replacement. Plan: Continue. Degenerative disc disease with chronic pain on chronic opioids. Plan: Continue home oxycodone, and as needed IV morphine for pain control
[2018-06-28] MEDS: PANTOPRAZOLE 40 MG TABLET PO SCH (08:33)
[2018-06-28] MEDS: ASCORBIC ACID 500 MG TABLET PO SCH (09:13)
[2018-06-28] MEDS: ENOXAPARIN 40 MG/0.4 ML SYRINGE SQ SCH (09:13)
[2018-06-28] MEDS: LACTOBACILLUS 1 CAPSULE PO SCH ×2 (09:13→21:43)
[2018-06-28] MEDS: LINEZOLID 600 MG TABLET PO SCH ×2 (09:13→21:43)
[2018-06-28] MEDS: ZINC SULFATE 50 MG CAPSULE PO SCH (09:13)
[2018-06-28] MEDS: VIT A,C & E/LUTEIN/MINERALS TABLET PO SCH ×2 (09:13→21:43)
[2018-06-28] MEDS: oxyCODONE HCL 5 MG TABLET PO PRN ×3 (09:14→19:27)
[2018-06-28] MEDS: LOPERAMIDE 2 MG CAPSULE PO PRN (15:35)
[2018-06-28] MEDS: NICOTINE 14 MG PATCH TOPICAL SCH (15:36)
--- NOTE | 2018-06-28 18:20 | General Surgery Progress Note ---
Subjective Narrative: Note initiated : 06/28/18 at 6:14 pm Service Date, if different from initiated Date: [] Patient: Adan,Aakash javier 73 y/o M admitted on 06/20/18 for Debridement and Pulse Lavage Right Foot. Chief Complaint: [] I saw this patient on rounds this morning and again evaluated him before during and after the hyperbaric oxygen treatment at the wound center today. Though his wound is showing granulation and improvement with treatment, he still has persistent rim of gangrenous necrotic tissue at the tip of flap. Patient says that he has not smoked cigarettes but is using a nicotine patch. I have strongly recommended and advised him to quit nicotine consumption in any way shape or form. Adverse effects of smoking and nicotine use and nonhealing of wounds was highlighted at length. I spoke with them for over 10 minutes. Objective Temp Pulse Resp BP Pulse Ox 98.3 F 75 12 123/74 95 06/28/18 15:40 06/28/18 15:40 06/28/18 15:40 06/28/18 15:40 06/28/18 15:40 Afebrile. Vital signs are stable . No acute changes in general physical examination. Wound bed is granulating well. There is no slough. Part of the rotated flap has necrosed. This wound is now progressing well and responding to hyperbaric oxygen treatment. This is ready for skin substitute meshed cadaver skin graft Patient is not suitable for AUTOLOGOUS skin graft. A size of this wound is best treated with skin substitute using cadaver skin graft, whilst he is still getting hyperbaric oxygen treatment and intravenous antibiotics. Once the skin substitute placement is achieved, patient can be considered for discharge and outpatient follow-up for treatment at the wound care center. - Additional Data Intake & Output - Last 24 hours: Intake & Output 06/26/18 06/27/18 06/28/18 06/29/18 05:59 05:59 05:59 05:59 Intake Total 510 / 510 755 / 755 1215 / 1215 1020 / 1020 Output Total 650 / 650 225 / 225 Balance 510 / 510 755 / 755 565 / 565 795 / 795 Weight 200 lb 8 oz 198 lb 8 oz 198 lb 198 lb - Labs 06/24/18 04:20 06/24/18 04:20 Assessment and Plan (1) Sepsis affecting skin Problem details: Patient started on local wound care consisting of chlorhexidine washes, MIST treatment, Topical antibiotics and protect to dressing with Kerlix bandage. He is on broad-spectrum intravenous antibiotics which will be reevaluated and probably De-escalated later. Status: Acute Current Visit: Yes - Time Spent With Patient Total time spent is greater than 50% in coordination of care (as documented) at patient's floor/unit and/or counseling patient:
[2018-06-28] MEDS: ACETAMINOPHEN 325 MG TABLET PO PRN (19:26)
[2018-06-28] MEDS: diphenhydrAMINE 25 MG CAPSULE PO PRN (21:43)
[2018-06-28] MEDS: TAMSULOSIN 0.4 MG CAPSULE PO SCH (21:43)
[2018-06-29] MEDS: 0.9 % SODIUM CHLORIDE 10 ML SYRINGE IV SCH ×4 (05:06→21:41)
[2018-06-29] MEDS: CEFEPIME 2 GM VIAL IV SCH ×3 (05:06→21:41)
[2018-06-29 05:18] LABS: Basophils # (Auto) 0.1 K/mcL (0.0-0.3); Basophils % (Auto) 1.1 % (0.0-2.0); Eosinophils # (Auto) 0.1 K/mcL (0.0-0.7); Eosinophils % (Auto) 1.6 % (0.0-7.0); Granulocytes % (Auto) 71.8 % (38.0-78.0); Lymphocytes # (Auto) 1.4 K/mcL (1.5-4.8); Lymphocytes % (Auto) 20.4 % (15.5-49.0); Mean Cell Volume 101.8 fL (80.0-100.0); Mean Corpuscular HGB Conc 34.7 g/dL (31.0-36.0); Mean Corpuscular Hemoglobin 35.3 pg (26.0-34.0); Monocytes # (Auto) 0.4 K/mcL (0.1-0.9); Monocytes % (Auto) 5.1 % (1.0-12.0); Platelet Count 195 K/mcL (140-440); RBC 3.36 M/mcL (4.50-5.90); Red Cell Distribution Width 15.9 % (11.5-14.5)
[2018-06-29 05:42] LABS: Blood Urea Nitrogen 15 mg/dl (8-23)
[2018-06-29] MEDS: LOPERAMIDE 2 MG CAPSULE PO PRN ×2 (07:18→08:47)
[2018-06-29] MEDS: PANTOPRAZOLE 40 MG TABLET PO SCH (07:18)
[2018-06-29] MEDS: LEVOTHYROXINE 150 MCG TABLET PO SCH (07:18)
--- NOTE | 2018-06-29 07:24 | Internal Med Progress Note ---
Medical - PN: Subj Patient information: Note initiated : 06/29/18 at 7:21 am Service Date, if different from initiated Date: [] Patient: Aakash Arellano 73 y/o M admitted on 06/20/18 for Debridement and Pulse Lavage Right Foot. Chief Complaint: [] Interval history: Mr. Arellano is a 73 year old M with a history of treated hypertension, treated hypothyroidism, chronic pain, BPH who presents back to the emergency department with worsening redness and pain of his right lower extremity. On Monday, 06/15, patient fell on rocks while coming out of the river. [place] [place]. He is going to be camping with friends. 2 friends brought him to the emergency department. He had significant injury along the right sheets with a distal "J" laterally. He received irrigation of the wound with subsequent stitches. Antibiotics were prescribed, however the patient was one aware and it was not until Monday, 3 days later that he was called by the pharmacy to chart picker her prescription for cephalexin. He started taking that on Monday. On Monday prior to starting antibiotics he noticed that his leg was getting red and painful. On Monday he continued to be red and painful spot of oral antibiotics. He has had a double up on some of his usual home oxycodone to control the pain (from 10-20 mg every 4 hours as needed). Monday was seen in the emergency department here. There is erythema and pain. Margins were noted , he was given a dose of ceftriaxone and continued on cephalexin and asked to return if he did not improve. He returns today due to worsening erythema and pain of his right leg. Patient denies any fevers or chills associated with this. He's been mostly on the couch with his leg elevated. It's quite painful to get up, to move and to try to ambulate to the restroom. He's had no associated nausea or vomiting, no shaking chills. In the emergency department, erythema had progressed beyond the margins both distally and proximally (more so distally). He had an area of breakdown about a quarter of the way down from the proximal end of the laceration. There is concern this could be vascular insufficiency, he underwent CT angiography of the lower extremity showing patent vascular flow to the right leg. There was no notation of subcutaneous edema, no notation of any fascial changes. Patient's been admitted for further treatment of cellulitis associated with right leg laceration which has not responded to outpatient therapy. 06/21 Feels well today. Pain is decreased in the leg, also notes her is decreased edema. Blood cultures without growth. No areas of purulence/drainage to culture. Being seen by wound care. 06/22 Patient seen and examined today, seen with Dr. Irving, also discussed with Dr. Agudelo. Some necrosis in the midportion of the suture line, some mild purulence. Cultures taken. Pain in the leg continues with ambulation, though not as painful when he first came in. Edema continues to improve. 06/23 Status post debridement and washout in the OR by Dr. Agudelo this morning. A little groggy after anesthesia. No new complaints. Case discussed with ID this morning, we'll send screening for hepatitis and HIV given demographics. Patient believes he is had negative hepatitis screen in the past, though that was several years ago. Bacterial cultures as well as AFB, fungal cultures and tissue biopsy were collected intraoperatively. 06/24 Seen on rounds. No new complaints this morning. Superficial culture obtained on 06/22 growing coag-negative staph. From the intra-operative culture, Gram stain shows rare gram-positive cocci, culture pending. ARMANDO stain was negative for fungal elements. Remains on Zyvox and cefepime. 06/25 -Seen on a rounds. Discussed with nursing. Discussed with wound care nurse. -To start hyperbaric oxygen today -Continues on broad antimicrobials, no new culture data 06/26 slept well, no new complaints. ambulated to bathroom with some discomfort to the leg. 06/27 soft stools, too much form for lab to run a c.diff. stool softeners stopped yesterday. nausea. 06/28 loose stools per patient but none reported by nurse. with perianal irritation. 06/29 several loose BM's last night, soft per nursing. otherwise no new complaints. Review of Systems: denies headache/fever/chills/nausea/vomiting/chest or abdominal pain/cough/ dyspnea. Otherwise see above. - Constitutional Vitals: Vital Signs Temp Pulse Resp BP Pulse Ox 98.7 F 76 20 109/71 94 06/29/18 07:13 06/29/18 04:00 06/29/18 07:13 06/29/18 07:13 06/29/18 07:13 Period Temp Pulse Resp BP Sys/Rios Pulse Ox Last 24 Hr 97.7 F-98.9 F 73-80 12-20 107-123/68-79 92-95 Intake and Output 06/28/18 06/29/18 06/29/18 21:59 05:59 13:59 Intake Total 540 / 540 400 / 400 Output Total 225 / 225 250 / 250 Balance 315 / 315 150 / 150 Weight 89.811 kg Intake & Output: Intake & Output 06/28/18 06/29/18 06/29/18 21:59 05:59 13:59 Intake Total 540 / 540 400 / 400 Output Total 225 / 225 250 / 250 Balance 315 / 315 150 / 150 Weight 89.811 kg Intake: Oral 540 / 540 400 / 400 Output: Void Amount 225 / 225 250 / 250 Other: Urine Appearance Clear Urine Color Bright Yellow Stool Size Moderate Stool Color Brown Stool Consistency Soft # Voids 1 # Bowel Movements 1 Exam: General: Alert, Awake, No acute Distress HEENT: EOMI, CV: RRR, No murmurs, normal s1/s2 Pulm: Clear b/l, no wheezing/rhonchi/rales Abd: soft, nontender, +BS x4 Ext: no clubbing/cyanosis. Distal right leg with dressings in place Neuro: Alert, no focal deficits, moves all extremities Skin: warm/dry Medical - PN: Obj Da - Labs CBC & Chem 7: 06/29/18 04:37 06/29/18 04:37 Labs: Abnormal Lab Results 06/29/18 06/29/18 06/23/18 04:37 04:37 11:27 RBC 3.36 L Hgb 11.9 L Hct 34.2 L MCV 101.8 H MCH 35.3 H RDW 15.9 H MPV 7.1 L Lymph # (Auto) 1.4 L Creatinine 0.6 L Glucose 116 H Hep Bs Antibody, Quant <5 A Meds: Medications Acetaminophen (Tylenol) 650 mg PO Q6HP PRN PRN Reason: PAIN/FEVER > 101 Last Admin: 06/28/18 19:26 Dose: 650 mg Ascorbic Acid (Vitamin C) 1,000 mg PO DAILY MARG[facility]ITO Last Admin: 06/28/18 09:13 Dose: 1,000 mg Bisacodyl (Dulcolax) 10 mg [place] DAILYP PRN PRN Reason: Constipation Cefepime HCl (Maxipime) 2 gm IV Q8H [facility] Last Admin: 06/29/18 05:06 Dose: 2 gm Diphenhydramine HCl (Benadryl) 25 mg PO HSP PRN PRN Reason: Insomnia Last Admin: 06/28/18 21:43 Dose: 25 mg Enoxaparin Sodium (Lovenox) 40 mg SQ DAILY [facility] Last Admin: 06/28/18 09:13 Dose: 40 mg Hydrocortisone (Hc Crm 1%) 1 dose TOPICAL TIDP PRN PRN Reason: Itching Last Admin: 06/27/18 15:19 Dose: 1 dose Lactobacillus Rhamnosus (Culturelle) 1 cap PO BID [facility] Last Admin: 06/28/18 21:43 Dose: 1 cap Levothyroxine Sodium (Synthroid) 150 mcg PO ACB [facility] Last Admin: 06/29/18 07:18 Dose: 150 mcg Linezolid (Zyvox) 600 mg PO Q12 [facility] Last Admin: 06/28/18 21:43 Dose: 600 mg Loperamide HCl (Imodium) 2 mg PO PRN PRN PRN Reason: Diarrhea Last Admin: 06/29/18 07:18 Dose: 2 mg Morphine Sulfate (Morphine) 0 mg IV Q4HP PRN PRN Reason: PAIN LEVEL > 6 Last Admin: 06/29/18 07:18 Dose: 2 mg Multivitamins/Minerals (Ocuvite) 1 tab PO BID [facility] Last Admin: 06/28/18 21:43 Dose: 1 tab Nicotine (Nicoderm) 14 mg TOPICAL DAILY@1400 [facility] Last Admin: 06/28/18 15:36 Dose: Not Given Ondansetron HCl (Zofran) 4 mg IV Q4HP PRN PRN Reason: Nausea And Vomiting Oxycodone HCl (Roxicodone) 10 mg PO Q4HP PRN PRN Reason: PAIN LEVEL 3-6 Last Admin: 06/28/18 19:27 Dose: 10 mg Pantoprazole Sodium (Protonix) 40 mg PO QAMAC [facility] Last Admin: 06/29/18 07:18 Dose: 40 mg Polyethylene Glycol (Miralax) 17 gm PO DAILYP PRN PRN Reason: Constipation Last Admin: 06/23/18 17:27 Dose: 17 gm Sodium Chloride (Saline Flush) 10 ml IV Q8 [facility] Last Admin: 06/29/18 05:06 Dose: 10 ml Tamsulosin HCl (Flomax) 0.4 mg PO HS [facility] Last Admin: 06/28/18 21:43 Dose: 0.4 mg Throat Lozenges (Cepacol) 1 lozenge PO PRN PRN PRN Reason: Sore Throat Last Admin: 06/27/18 06:41 Dose: 1 lozenge Trazodone HCl (Desyrel) 50 mg PO HSP PRN PRN Reason: Insomnia Zinc Sulfate (Zinc) 50 mg PO DAILY [facility] Last Admin: 06/28/18 09:13 Dose: 50 mg Medical - PN: A/P - Time Spent With Patient Total time spent is greater than 50% in coordination of care (as documented) at patient's floor/unit and/or counseling patient: - Narrative A/P Narrative: 73-year-old male presents with worsening erythema and pain of the right lower extremity after a wound from falling on rocks 5 days prior to presentation. Cellulitis RLL: s/p OR I&D/resection of necrotic superficial tissue. Remains on cefepime and linezolid (also with anti-toxin effect, vs. vanco) for broad coverage of gram positive and gram negative pathogens from wound associated with freshwater exposure, including coverage for Aeromonas, Pseudomonas as well as staph and strep. HIV screen negative. Hepatitis screen pending. -Per discussion with infectious disease specialist once d/c'd will go on Cipro / Zyvox orally for total antibiotic course 4 weeks. Patient follow-up Dr. Irving in 2 weeks. continue hyperbaric o2 and d/c when ok per wound surgeon likely next Monday as he also should have OR debridement on Monday. Hypertension: Continue home meds. Hypothyroidism: cont home replacement. Degenerative disc disease with chronic pain on chronic opioids: Continue home oxycodone, and as needed IV morphine for pain control
[2018-06-29] MEDS: ASCORBIC ACID 500 MG TABLET PO SCH (08:38)
[2018-06-29] MEDS: LACTOBACILLUS 1 CAPSULE PO SCH ×2 (08:38→21:01)
[2018-06-29] MEDS: ZINC SULFATE 50 MG CAPSULE PO SCH (08:39)
[2018-06-29] MEDS: oxyCODONE HCL 5 MG TABLET PO PRN ×3 (08:39→23:23)
[2018-06-29] MEDS: ENOXAPARIN 40 MG/0.4 ML SYRINGE SQ SCH (08:39)
[2018-06-29] MEDS: LINEZOLID 600 MG TABLET PO SCH ×2 (08:39→21:02)
[2018-06-29] MEDS: VIT A,C & E/LUTEIN/MINERALS TABLET PO SCH ×2 (08:39→21:01)
[2018-06-29] MEDS: [UNRECOGNIZED DRUG - OTHER] SSP PRN ×3 (10:09→19:45)
--- NOTE | 2018-06-29 16:57 | General Surgery Progress Note ---
Subjective Patient reports: no new complaints (Patient was seen in the wound care center during HBO treatment. I reviewed his progress on the floor with nursing staff and with [facility] wound care nurse.) Narrative: Note initiated : 06/29/18 at 4:55 pm Service Date, if different from initiated Date: [] Patient: Aakash Arellano 73 y/o M admitted on 06/20/18 for Debridement and Pulse Lavage Right Foot. Chief Complaint: [] Objective Temp Pulse Resp BP Pulse Ox 98.7 F 76 16 121/72 92 06/29/18 16:00 06/29/18 04:00 06/29/18 16:00 06/29/18 16:00 06/29/18 16:00 Afebrile. Vital signs are stable. No acute interval changes in the wound. Local wound care is ongoing. Elevating for cadaver skin graft supplement procurement. - Additional Data Intake & Output - Last 24 hours: Intake & Output 06/27/18 06/28/18 06/29/18 06/30/18 05:59 05:59 05:59 05:59 Intake Total 755 / 755 1215 / 1215 1420 / 1420 1140 / 1140 Output Total 650 / 650 475 / 475 325 / 325 Balance 755 / 755 565 / 565 945 / 945 815 / 815 Weight 198 lb 8 oz 198 lb 198 lb - Labs 06/29/18 04:37 06/29/18 04:37 Diabetes panel 06/29/18 Range/Units 04:37 Sodium 139 (133-145) mmol/L Potassium 4.3 (3.3-5.1) mmol/L Chloride 103 (96-108) mmol/L Carbon Dioxide 27 (22-30) mmol/L BUN 15 (8-23) mg/dl Creatinine 0.6 L (0.7-1.2) mg/dl Glucose 116 H (70-105) mg/dL Calcium 8.8 (8.6-10.4) mg/dl Calcium panel 06/29/18 Range/Units 04:37 Calcium 8.8 (8.6-10.4) mg/dl Pituitary panel 06/29/18 Range/Units 04:37 Sodium 139 (133-145) mmol/L Potassium 4.3 (3.3-5.1) mmol/L Chloride 103 (96-108) mmol/L Carbon Dioxide 27 (22-30) mmol/L BUN 15 (8-23) mg/dl Creatinine 0.6 L (0.7-1.2) mg/dl Glucose 116 H (70-105) mg/dL Calcium 8.8 (8.6-10.4) mg/dl Adrenal panel 06/29/18 Range/Units 04:37 Sodium 139 (133-145) mmol/L Potassium 4.3 (3.3-5.1) mmol/L Chloride 103 (96-108) mmol/L Carbon Dioxide 27 (22-30) mmol/L BUN 15 (8-23) mg/dl Creatinine 0.6 L (0.7-1.2) mg/dl Glucose 116 H (70-105) mg/dL Calcium 8.8 (8.6-10.4) mg/dl Assessment and Plan (1) Sepsis affecting skin Problem details: Patient started on local wound care consisting of chlorhexidine washes, MIST treatment, Topical antibiotics and protect to dressing with Kerlix bandage. He is on broad-spectrum intravenous antibiotics which will be reevaluated and probably De-escalated later. Status: Acute Current Visit: Yes - Narrative A/P Narrative: Assessment: No acute interval changes. Patient awaits for cadaver skin graft availability. Needs ongoing intravenous antibiotics, local wound care and hyperbaric oxygen therapy until the wound is debrided again in the operating room And resurfacing with cadaver skin graft. Plan: Continue present treatment. - Time Spent With Patient Total time spent is greater than 50% in coordination of care (as documented) at patient's floor/unit and/or counseling patient: less than 15 minutes
[2018-06-29] MEDS: NICOTINE 14 MG PATCH TOPICAL SCH (17:58)
[2018-06-29] MEDS: TAMSULOSIN 0.4 MG CAPSULE PO SCH (21:01)
[2018-06-30] MEDS: NICOTINE 14 MG PATCH TOPICAL SCH ×2 (01:38→15:16)
[2018-06-30] MEDS: oxyCODONE HCL 5 MG TABLET PO PRN ×4 (04:10→20:37)
[2018-06-30] MEDS: LOPERAMIDE 2 MG CAPSULE PO PRN ×2 (05:21→21:22)
[2018-06-30] MEDS: [UNRECOGNIZED DRUG - OTHER] SSP PRN ×2 (05:21→12:53)
[2018-06-30] MEDS: CEFEPIME 2 GM VIAL IV SCH ×3 (05:21→21:23)
[2018-06-30] MEDS: 0.9 % SODIUM CHLORIDE 10 ML SYRINGE IV SCH ×5 (05:21→21:23)
[2018-06-30] MEDS: diphenhydrAMINE 25 MG CAPSULE PO PRN ×2 (05:29→22:11)
[2018-06-30] MEDS: HYDROCORTISONE CRM 1% TUBE 30GM TOPICAL PRN ×3 (05:31→22:12)
--- NOTE | 2018-06-30 07:25 | Internal Med Progress Note ---
Medical - PN: Subj Patient information: Note initiated : 06/30/18 at 7:24 am Service Date, if different from initiated Date: [] Patient: Aakash Arellano 73 y/o M admitted on 06/20/18 for Debridement and Pulse Lavage Right Foot. Chief Complaint: [] Interval history: Mr. Arellano is a 73 year old M with a history of treated hypertension, treated hypothyroidism, chronic pain, BPH who presents back to the emergency department with worsening redness and pain of his right lower extremity. On Monday, 06/15, patient fell on rocks [place] coming [place] the [place]. He is going to be camping with friends. 2 friends brought him to the emergency department. He had significant injury along the right sheets with a distal "J" laterally. He received irrigation of the wound with subsequent stitches. Antibiotics were prescribed, however the patient was one aware and it was not until Monday, 3 days later that he was called by the pharmacy to product picker her prescription for cephalexin. He started taking that on Monday. On Monday prior to starting antibiotics he noticed that his leg was getting red and painful. On Monday he continued to be red and painful spot of oral antibiotics. He has had a double up on some of his usual home oxycodone to control the pain (from 10-20 mg every 4 hours as needed). Monday was seen in the emergency department here. There is erythema and pain. Margins were noted , he was given a dose of ceftriaxone and continued on cephalexin and asked to return if he did not improve. He returns today due to worsening erythema and pain of his right leg. Patient denies any fevers or chills associated with this. He's been mostly on the couch with his leg elevated. It's quite painful to get up, to move and to try to ambulate to the restroom. He's had no associated nausea or vomiting, no shaking chills. In the emergency department, erythema had progressed beyond the margins both distally and proximally (more so distally). He had an area of breakdown about a quarter of the way down from the proximal end of the laceration. There is concern this could be vascular insufficiency, he underwent CT angiography of the lower extremity showing patent vascular flow to the right leg. There was no notation of subcutaneous edema, no notation of any fascial changes. Patient's been admitted for further treatment of cellulitis associated with right leg laceration which has not responded to outpatient therapy. 06/21 Feels well today. Pain is decreased in the leg, also notes her is decreased edema. Blood cultures without growth. No areas of purulence/drainage to culture. Being seen by wound care. 06/22 Patient seen and examined today, seen with Dr. Irving, also discussed with Dr. Agudelo. Some necrosis in the midportion of the suture line, some mild purulence. Cultures taken. Pain in the leg continues with ambulation, though not as painful when he first came in. Edema continues to improve. 06/23 Status post debridement and washout in the OR by Dr. Agudelo this morning. A little groggy after anesthesia. No new complaints. Case discussed with ID this morning, we'll send screening for hepatitis and HIV given demographics. Patient believes he is had negative hepatitis screen in the past, though that was several years ago. Bacterial cultures as well as AFB, fungal cultures and tissue biopsy were collected intraoperatively. 06/24 Seen on rounds. No new complaints this morning. Superficial culture obtained on 06/22 growing coag-negative staph. From the intra-operative culture, Gram stain shows rare gram-positive cocci, culture pending. ARMANDO stain was negative for fungal elements. Remains on Zyvox and cefepime. 06/25 -Seen on a rounds. Discussed with nursing. Discussed with wound care nurse. -To start hyperbaric oxygen today -Continues on broad antimicrobials, no new culture data 06/26 slept well, no new complaints. ambulated to bathroom with some discomfort to the leg. 06/27 soft stools, too much form for lab to run a c.diff. stool softeners stopped yesterday. nausea. 06/28 loose stools per patient but none reported by nurse. with perianal irritation. 06/29 several loose BM's last night, soft per nursing. otherwise no new complaints. 06/30 no overnight events, diarrhea improving. Review of Systems: denies headache/fever/chills/nausea/vomiting/chest or abdominal pain/cough/ dyspnea. Otherwise see above. - Constitutional Vitals: Vital Signs Temp Pulse Resp BP Pulse Ox 97.8 F 72 18 113/73 95 06/30/18 04:00 06/30/18 04:00 06/30/18 04:00 06/30/18 04:00 06/30/18 04:00 Period Temp Pulse Resp BP Sys/Rios Pulse Ox Last 24 Hr 97.8 F-98.7 F 72-82 16-20 113-121/69-77 92-98 Intake and Output 06/29/18 06/30/18 06/30/18 21:59 05:59 13:59 Intake Total 660 / 660 790 / 790 Output Total 175 / 175 Balance 485 / 485 790 / 790 Weight 90.038 kg Intake & Output: Intake & Output 06/29/18 06/30/18 06/30/18 21:59 05:59 13:59 Intake Total 660 / 660 790 / 790 Output Total 175 / 175 Balance 485 / 485 790 / 790 Weight 90.038 kg Intake: Oral 660 / 660 790 / 790 Output: Void Amount 175 / 175 Other: Meal Dinner sandwich Percent of Meal Consumed 100% 100% Feeding Ability Independent Stool Size Small Stool Color Brown Stool Consistency Soft # Voids 1 # Bowel Movements 1 # of times incontinent of 1 Bowels Exam: General: Alert, Awake, No acute Distress HEENT: EOMI, CV: RRR, No murmurs, normal s1/s2 Pulm: Clear b/l, no wheezing/rhonchi/rales Abd: soft, nontender, +BS x4 Ext: no clubbing/cyanosis. Distal right leg with dressings in place Neuro: Alert, no focal deficits, moves all extremities Skin: warm/dry Medical - PN: Obj Da - Labs CBC & Chem 7: 06/29/18 04:37 06/29/18 04:37 Labs: Abnormal Lab Results 06/29/18 06/29/18 04:37 04:37 RBC 3.36 L Hgb 11.9 L Hct 34.2 L MCV 101.8 H MCH 35.3 H RDW 15.9 H MPV 7.1 L Lymph # (Auto) 1.4 L Creatinine 0.6 L Glucose 116 H Meds: Medications Acetaminophen (Tylenol) 650 mg PO Q6HP PRN PRN Reason: PAIN/FEVER > 101 Last Admin: 06/28/18 19:26 Dose: 650 mg Ascorbic Acid (Vitamin C) 1,000 mg PO DAILY [facility] Last Admin: 06/29/18 08:38 Dose: 1,000 mg Bisacodyl (Dulcolax) 10 mg [place] DAILYP PRN PRN Reason: Constipation Cefepime HCl (Maxipime) 2 gm IV Q8H [facility] Last Admin: 06/30/18 05:21 Dose: 2 gm Diphenhydramine HCl (Benadryl) 25 mg PO HSP PRN PRN Reason: Insomnia Last Admin: 06/30/18 05:29 Dose: 25 mg Enoxaparin Sodium (Lovenox) 40 mg SQ DAILY [facility] Last Admin: 06/29/18 08:39 Dose: 40 mg Heparin Sodium (Porcine) (Heparin Flush) 2 ml IV Q12 [facility] Last Admin: 06/29/18 21:01 Dose: Not Given Hydrocortisone (Hc Crm 1%) 1 dose TOPICAL TIDP PRN PRN Reason: Itching Last Admin: 06/30/18 05:31 Dose: 1 dose Lactobacillus Rhamnosus (Culturelle) 1 cap PO BID [facility] Last Admin: 06/29/18 21:01 Dose: 1 cap Levothyroxine Sodium (Synthroid) 150 mcg PO ACB [facility] Last Admin: 06/29/18 07:18 Dose: 150 mcg Linezolid (Zyvox) 600 mg PO Q12 [facility] Last Admin: 06/29/18 21:02 Dose: 600 mg Loperamide HCl (Imodium) 2 mg PO PRN PRN PRN Reason: Diarrhea Last Admin: 06/30/18 05:21 Dose: 2 mg Morphine Sulfate (Morphine) 0 mg IV Q4HP PRN PRN Reason: PAIN LEVEL > 6 Last Admin: 06/30/18 01:37 Dose: 2 mg Multivitamins/Minerals (Ocuvite) 1 tab PO BID [facility] Last Admin: 06/29/18 21:01 Dose: 1 tab Nicotine (Nicoderm) 14 mg TOPICAL DAILY@1400 [facility] Last Admin: 06/30/18 01:38 Dose: 14 mg Magic Mouthwash Maalox:Benadryl: Viscous Lidocaine 2% 1 dose SSP Q2-4HP PRN PRN Reason: MOUTH PAIN Last Admin: 06/30/18 05:21 Dose: 1 dose Ondansetron HCl (Zofran) 4 mg IV Q4HP PRN PRN Reason: Nausea And Vomiting Oxycodone HCl (Roxicodone) 10 mg PO Q4HP PRN PRN Reason: PAIN LEVEL 3-6 Last Admin: 06/30/18 04:10 Dose: 10 mg Pantoprazole Sodium (Protonix) 40 mg PO QAMAC [facility] Last Admin: 06/29/18 07:18 Dose: 40 mg Polyethylene Glycol (Miralax) 17 gm PO DAILYP PRN PRN Reason: Constipation Last Admin: 06/23/18 17:27 Dose: 17 gm Sodium Chloride (Saline Flush) 10 ml IV Q8 [facility] Last Admin: 06/30/18 05:21 Dose: 10 ml Sodium Chloride (Saline Flush) 10 ml IV Q12 [facility] Last Admin: 06/29/18 21:02 Dose: 10 ml Tamsulosin HCl (Flomax) 0.4 mg PO HS [facility] Last Admin: 06/29/18 21:01 Dose: 0.4 mg Throat Lozenges (Cepacol) 1 lozenge PO PRN PRN PRN Reason: Sore Throat Last Admin: 06/27/18 06:41 Dose: 1 lozenge Trazodone HCl (Desyrel) 50 mg PO HSP PRN PRN Reason: Insomnia Zinc Sulfate (Zinc) 50 mg PO DAILY [facility] Last Admin: 06/29/18 08:39 Dose: 50 mg Medical - PN: A/P - Time Spent With Patient Total time spent is greater than 50% in coordination of care (as documented) at patient's floor/unit and/or counseling patient: - Narrative A/P Narrative: 73-year-old male presents with worsening erythema and pain of the right lower extremity after a wound from falling on rocks 5 days prior to presentation. Cellulitis RLL: s/p OR I&D/resection of necrotic superficial tissue. Remains on cefepime and linezolid (also with anti-toxin effect, vs. vanco) for broad coverage of gram positive and gram negative pathogens from wound associated with freshwater exposure, including coverage for Aeromonas, Pseudomonas as well as staph and strep. HIV screen negative. Hepatitis screen pending. -Per discussion with infectious disease specialist once d/c'd will go on Cipro / Zyvox orally for total antibiotic course 4 weeks. Patient follow-up Dr. Irving in 2 weeks. continue hyperbaric o2 and d/c when ok per wound surgeon likely next Monday as is to have OR debridement on Monday. Hypertension: Continue home meds. Hypothyroidism: cont home replacement. Degenerative disc disease with chronic pain on chronic opioids: Continue home oxycodone, and as needed IV morphine for pain control
[2018-06-30] MEDS: LACTOBACILLUS 1 CAPSULE PO SCH ×2 (10:20→20:35)
[2018-06-30] MEDS: ENOXAPARIN 40 MG/0.4 ML SYRINGE SQ SCH (10:21)
[2018-06-30] MEDS: PANTOPRAZOLE 40 MG TABLET PO SCH (10:21)
[2018-06-30] MEDS: VIT A,C & E/LUTEIN/MINERALS TABLET PO SCH ×2 (10:21→20:36)
[2018-06-30] MEDS: ASCORBIC ACID 500 MG TABLET PO SCH (10:21)
[2018-06-30] MEDS: LEVOTHYROXINE 150 MCG TABLET PO SCH (10:21)
[2018-06-30] MEDS: LINEZOLID 600 MG TABLET PO SCH ×2 (10:21→20:36)
[2018-06-30] MEDS: ZINC SULFATE 50 MG CAPSULE PO SCH (10:21)
[2018-06-30] MEDS: TAMSULOSIN 0.4 MG CAPSULE PO SCH (20:35)
[2018-06-30] MEDS: traZODone HCL 50 MG TABLET PO PRN (23:48)
[2018-07-01] MEDS: oxyCODONE HCL 5 MG TABLET PO PRN ×5 (00:15→23:41)
[2018-07-01] MEDS: 0.9 % SODIUM CHLORIDE 10 ML SYRINGE IV SCH ×5 (05:46→21:44)
[2018-07-01] MEDS: CEFEPIME 2 GM VIAL IV SCH ×3 (05:46→21:44)
[2018-07-01 06:40] LABS: Basophils # (Auto) 0.1 K/mcL (0.0-0.3); Eosinophils # (Auto) 0.1 K/mcL (0.0-0.7); Eosinophils % (Auto) 2.3 % (0.0-7.0); Lymphocytes # (Auto) 1.6 K/mcL (1.5-4.8); Lymphocytes % (Auto) 27.4 % (15.5-49.0); Mean Cell Volume 101.2 fL (80.0-100.0); Mean Corpuscular HGB Conc 34.6 g/dL (31.0-36.0); Monocytes # (Auto) 0.5 K/mcL (0.1-0.9); Monocytes % (Auto) 8.3 % (1.0-12.0); Platelet Count 169 K/mcL (140-440); RBC 3.32 M/mcL (4.50-5.90); Red Cell Distribution Width 15.7 % (11.5-14.5)
[2018-07-01 06:54] LABS: ALT/SGPT 30 U/l (0-40); Albumin 3.3 gm/dL (3.2-5.2); Albumin/Globulin Ratio 1.2 (1.0-2.3); Alkaline Phosphatase 139 U/L (39-117); Bilirubin,Direct < 0.2 mg/dL (0.0-0.3); Blood Urea Nitrogen 15 mg/dl (8-23); Gamma Glutamyl Transpeptidase 24 U/L (8-61); Uric Acid 4.2 mg/dL (2.5-8.0)
[2018-07-01] MEDS: [UNRECOGNIZED DRUG - OTHER] SSP PRN ×2 (07:08→10:38)
[2018-07-01] MEDS: PANTOPRAZOLE 40 MG TABLET PO SCH (07:08)
[2018-07-01] MEDS: LEVOTHYROXINE 150 MCG TABLET PO SCH (07:08)
--- NOTE | 2018-07-01 10:22 | Internal Med Progress Note ---
Medical - PN: Subj Patient information: Note initiated : 07/01/18 at 10:20 am Service Date, if different from initiated Date: [] Patient: Aakash Arellano 73 y/o M admitted on 06/20/18 for Debridement and Pulse Lavage Right Foot. Chief Complaint: [] Interval history: Mr. Arellano is a 73 year old M with a history of treated hypertension, treated hypothyroidism, chronic pain, BPH who presents back to the emergency department with worsening redness and pain of his right lower extremity. On Monday, 06/15, patient [place]. He is going to be camping with friends. 2 friends brought him to the emergency department. He had significant injury along the right sheets with a distal "J" laterally. He received irrigation of the wound with subsequent stitches. Antibiotics were prescribed, however the patient was one aware and it was not until Monday, 3 days later that he was called by the pharmacy to crop picker her prescription for cephalexin. He started taking that on Monday. On Monday prior to starting antibiotics he noticed that his leg was getting red and painful. On Monday he continued to be red and painful spot of oral antibiotics. He has had a double up on some of his usual home oxycodone to control the pain (from 10-20 mg every 4 hours as needed). Monday was seen in the emergency department here. There is erythema and pain. Margins were noted , he was given a dose of ceftriaxone and continued on cephalexin and asked to return if he did not improve. He returns today due to worsening erythema and pain of his right leg. Patient denies any fevers or chills associated with this. He's been mostly on the couch with his leg elevated. It's quite painful to get up, to move and to try to ambulate to the restroom. He's had no associated nausea or vomiting, no shaking chills. In the emergency department, erythema had progressed beyond the margins both distally and proximally (more so distally). He had an area of breakdown about a quarter of the way down from the proximal end of the laceration. There is concern this could be vascular insufficiency, he underwent CT angiography of the lower extremity showing patent vascular flow to the right leg. There was no notation of subcutaneous edema, no notation of any fascial changes. Patient's been admitted for further treatment of cellulitis associated with right leg laceration which has not responded to outpatient therapy. 06/21 Feels well today. Pain is decreased in the leg, also notes her is decreased edema. Blood cultures without growth. No areas of purulence/drainage to culture. Being seen by wound care. 06/22 Patient seen and examined today, seen with Dr. Irving, also discussed with Dr. Agudelo. Some necrosis in the midportion of the suture line, some mild purulence. Cultures taken. Pain in the leg continues with ambulation, though not as painful when he first came in. Edema continues to improve. 06/23 Status post debridement and washout in the OR by Dr. Agudelo this morning. A little groggy after anesthesia. No new complaints. Case discussed with ID this morning, we'll send screening for hepatitis and HIV given demographics. Patient believes he is had negative hepatitis screen in the past, though that was several years ago. Bacterial cultures as well as AFB, fungal cultures and tissue biopsy were collected intraoperatively. 06/24 Seen on rounds. No new complaints this morning. Superficial culture obtained on 06/22 growing coag-negative staph. From the intra-operative culture, Gram stain shows rare gram-positive cocci, culture pending. ARMANDO stain was negative for fungal elements. Remains on Zyvox and cefepime. 06/25 -Seen on a rounds. Discussed with nursing. Discussed with wound care nurse. -To start hyperbaric oxygen today -Continues on broad antimicrobials, no new culture data 06/26 slept well, no new complaints. ambulated to bathroom with some discomfort to the leg. 06/27 soft stools, too much form for lab to run a c.diff. stool softeners stopped yesterday. nausea. 06/28 loose stools per patient but none reported by nurse. with perianal irritation. 06/29 several loose BM's last night, soft per nursing. otherwise no new complaints. 06/30 no overnight events, diarrhea improving. 07/01 patient seen examined, no acute overnight issues, pt tolerating po diet well on abx as per ID and wound care Pertinent ROS: Denies headache, dizziness Denies chest pain, palpitations Denies cough or shortness of breath Denies abdominal pain, nausea or vomiting. - Constitutional Vitals: Vital Signs Temp Pulse Resp BP Pulse Ox 96.9 F L 75 15 108/64 93 07/01/18 06:45 07/01/18 06:45 07/01/18 06:45 07/01/18 06:45 07/01/18 06:45 Period Temp Pulse Resp BP Sys/Rios Pulse Ox Last 24 Hr 96.9 F-98.6 F 73-80 15-20 107-125/64-77 92-94 Intake and Output 06/30/18 07/01/18 07/01/18 21:59 05:59 13:59 Intake Total 400 / 400 590 / 590 Balance 400 / 400 590 / 590 Weight 198 lb Intake & Output: Intake & Output 06/30/18 07/01/18 07/01/18 21:59 05:59 13:59 Intake Total 400 / 400 590 / 590 Balance 400 / 400 590 / 590 Weight 198 lb Intake: Oral 400 / 400 590 / 590 Other: Meal Tuna sandwich Breakfast Percent of Meal Consumed 100% 100% Feeding Ability Independent Assist with Tray Set Up # Voids 1 # Bowel Movements 1 Exam: Constitutional; Afebrile, cooperative, alert, not in distress. Eyes- No icterus, , No periorbital swelling Ears- Ext ear normal, hearing normal to conversation. Neck- Midline trachea, supple Respiratory system: Air Entry equal on both sides, No crackles or wheezing, no rhonchi. CVS- Rate rhythm regular, S1,S2 heard, no gallop, no rub. Abdomen- Soft nontender abdomen, no organomegaly, no tenderness, no guarding or rigidity, [employer]- AOOx3, moving all extremities, no gross focal deficit noted.' Right leg covered in bandage. Medical - PN: Obj Da - Labs CBC & Chem 7: 07/01/18 05:20 07/01/18 05:20 Labs: Abnormal Lab Results 07/01/18 07/01/18 06/29/18 05:20 05:20 04:37 RBC 3.32 L Hgb 11.6 L Hct 33.6 L MCV 101.2 H MCH 35.0 H RDW 15.7 H MPV 7.2 L Lymph # (Auto) Creatinine 0.6 L Glucose 116 H Alkaline Phosphatase 139 H 06/29/18 04:37 RBC 3.36 L Hgb 11.9 L Hct 34.2 L MCV 101.8 H MCH 35.3 H RDW 15.9 H MPV 7.1 L Lymph # (Auto) 1.4 L Creatinine Glucose Alkaline Phosphatase Meds: Medications Acetaminophen (Tylenol) 650 mg PO Q6HP PRN PRN Reason: PAIN/FEVER > 101 Last Admin: 06/28/18 19:26 Dose: 650 mg Ascorbic Acid (Vitamin C) 1,000 mg PO DAILY [facility] Last Admin: 06/30/18 10:21 Dose: 1,000 mg Bisacodyl (Dulcolax) 10 mg NE DAILYP PRN PRN Reason: Constipation Cefepime HCl (Maxipime) 2 gm IV Q8H [facility] Last Admin: 07/01/18 05:46 Dose: 2 gm Diphenhydramine HCl (Benadryl) 25 mg PO HSP PRN PRN Reason: Insomnia Last Admin: 06/30/18 22:11 Dose: 25 mg Enoxaparin Sodium (Lovenox) 40 mg SQ DAILY [facility] Last Admin: 06/30/18 10:21 Dose: 40 mg Heparin Sodium (Porcine) (Heparin Flush) 2 ml IV Q12 [facility] Last Admin: 06/30/18 20:36 Dose: 2 ml Hydrocortisone (Hc Crm 1%) 1 dose TOPICAL TIDP PRN PRN Reason: Itching Last Admin: 06/30/18 22:12 Dose: 1 dose Lactobacillus Rhamnosus (Culturelle) 1 cap PO BID [facility] Last Admin: 06/30/18 20:35 Dose: 1 cap Levothyroxine Sodium (Synthroid) 150 mcg PO ACB [facility] Last Admin: 07/01/18 07:08 Dose: 150 mcg Linezolid (Zyvox) 600 mg PO Q12 [facility] Last Admin: 06/30/18 20:36 Dose: 600 mg Loperamide HCl (Imodium) 2 mg PO PRN PRN PRN Reason: Diarrhea Last Admin: 06/30/18 21:22 Dose: 2 mg Morphine Sulfate (Morphine) 0 mg IV Q4HP PRN PRN Reason: PAIN LEVEL > 6 Last Admin: 06/30/18 21:31 Dose: 2 mg Multivitamins/Minerals (Ocuvite) 1 tab PO BID [facility] Last Admin: 06/30/18 20:36 Dose: 1 tab Nicotine (Nicoderm) 14 mg TOPICAL DAILY@1400 [facility] Last Admin: 06/30/18 15:16 Dose: 14 mg Magic Mouthwash Maalox:Benadryl: Viscous Lidocaine 2% 1 dose SSP Q2-4HP PRN PRN Reason: MOUTH PAIN Last Admin: 07/01/18 07:08 Dose: 1 dose Ondansetron HCl (Zofran) 4 mg IV Q4HP PRN PRN Reason: Nausea And Vomiting Oxycodone HCl (Roxicodone) 10 mg PO Q4HP PRN PRN Reason: PAIN LEVEL 3-6 Last Admin: 07/01/18 04:44 Dose: 10 mg Pantoprazole Sodium (Protonix) 40 mg PO QAMAC [facility] Last Admin: 07/01/18 07:08 Dose: 40 mg Polyethylene Glycol (Miralax) 17 gm PO DAILYP PRN PRN Reason: Constipation Last Admin: 06/23/18 17:27 Dose: 17 gm Sodium Chloride (Saline Flush) 10 ml IV Q8 [facility] Last Admin: 07/01/18 05:46 Dose: 10 ml Sodium Chloride (Saline Flush) 10 ml IV Q12 [facility] Last Admin: 06/30/18 20:36 Dose: 10 ml Tamsulosin HCl (Flomax) 0.4 mg PO HS [facility] Last Admin: 06/30/18 20:35 Dose: 0.4 mg Throat Lozenges (Cepacol) 1 lozenge PO PRN PRN PRN Reason: Sore Throat Last Admin: 06/27/18 06:41 Dose: 1 lozenge Trazodone HCl (Desyrel) 50 mg PO HSP PRN PRN Reason: Insomnia Last Admin: 06/30/18 23:48 Dose: 50 mg Zinc Sulfate (Zinc) 50 mg PO DAILY [facility] Last Admin: 06/30/18 10:21 Dose: 50 mg Medical - PN: A/P - Time Spent With Patient Total time spent is greater than 50% in coordination of care (as documented) at patient's floor/unit and/or counseling patient: - Narrative A/P Narrative: 73-year-old male presents with worsening erythema and pain of the right lower extremity after a wound from falling on rocks 5 days prior to presentation. Cellulitis RLL: s/p OR I&D/resection of necrotic superficial tissue. Remains on cefepime and linezolid (also with anti-toxin effect, vs. vanco) for broad coverage of gram positive and gram negative pathogens from wound associated with freshwater exposure, including coverage for Aeromonas, Pseudomonas as well as staph and strep. HIV screen negative. Hepatitis screen pending. -Per discussion with infectious disease specialist once d/c'd will go on Cipro / Zyvox orally for total antibiotic course 4 weeks. Patient follow-up Dr. Irving in 2 weeks. continue hyperbaric o2 and d/c when ok per wound surgeon Hypertension: Continue home meds. BP stable Hypothyroidism: cont home replacement. Degenerative disc disease with chronic pain on chronic opioids: Continue home oxycodone, and as needed IV morphine for pain control patient has stable labs, hemodynamically stable, disposition as per wound care physician.
[2018-07-01] MEDS: ENOXAPARIN 40 MG/0.4 ML SYRINGE SQ SCH (10:37)
[2018-07-01] MEDS: LACTOBACILLUS 1 CAPSULE PO SCH ×2 (10:37→21:42)
[2018-07-01] MEDS: ASCORBIC ACID 500 MG TABLET PO SCH (10:37)
[2018-07-01] MEDS: LINEZOLID 600 MG TABLET PO SCH ×2 (10:37→21:42)
[2018-07-01] MEDS: ZINC SULFATE 50 MG CAPSULE PO SCH (10:38)
[2018-07-01] MEDS: VIT A,C & E/LUTEIN/MINERALS TABLET PO SCH ×2 (10:38→21:42)
[2018-07-01] MEDS ORDERED: LORazepam 0.5 MG TABLET PO PRN (14:20)
[2018-07-01] MEDS: NICOTINE 14 MG PATCH TOPICAL SCH (14:21)
--- NOTE | 2018-07-01 14:24 | General Surgery Progress Note ---
Subjective Narrative: Note initiated : 07/01/18 at 2:21 pm Service Date, if different from initiated Date: [] Patient: Aakash Arellano 73 y/o M admitted on 06/20/18 for Debridement and Pulse Lavage Right Foot. Chief Complaint: [] Patient examined. Case discussed with the hospitalist physician Dr. Yuan and Radha ESPINOZA. Uneventful day yesterday and today. Complains of anxiety. On nicotine patch. Objective Temp Pulse Resp BP Pulse Ox 96.7 F L 80 13 118/74 93 07/01/18 11:32 07/01/18 11:32 07/01/18 11:32 07/01/18 11:32 07/01/18 11:32 Afebrile. Vital signs are stable. No acute changes in general physical examination. Dressings changed earlier today. Wound is stable. Patient will need continuing hyperbaric oxygen therapy and another surgery for debridement of the wound and placement of cadaver skin graft. - Additional Data Intake & Output - Last 24 hours: Intake & Output 06/29/18 06/30/18 07/01/18 07/02/18 05:59 05:59 05:59 05:59 Intake Total 1420 / 1420 2410 / 2410 1440 / 1440 Output Total 475 / 475 500 / 500 Balance 945 / 945 1910 / 1910 1440 / 1440 Weight 198 lb 198 lb 8 oz 198 lb - Labs 07/01/18 05:20 07/01/18 05:20 Diabetes panel 07/01/18 Range/Units 05:20 Sodium 138 (133-145) mmol/L Potassium 4.2 (3.3-5.1) mmol/L Chloride 101 (96-108) mmol/L Carbon Dioxide 26 (22-30) mmol/L BUN 15 (8-23) mg/dl Creatinine 0.7 (0.7-1.2) mg/dl Glucose 105 (70-105) mg/dL Calcium 8.9 (8.6-10.4) mg/dl AST 17 (0-37) U/l ALT 30 (0-40) U/l Alkaline Phosphatase 139 H (39-117) U/L Total Protein 6.1 (5.9-8.4) gm/dL Albumin 3.3 (3.2-5.2) gm/dL Triglycerides 74 (<150) mg/dl Calcium panel 07/01/18 Range/Units 05:20 Calcium 8.9 (8.6-10.4) mg/dl Phosphorus 3.8 (2.7-4.5) mg/dL Albumin 3.3 (3.2-5.2) gm/dL Pituitary panel 07/01/18 Range/Units 05:20 Sodium 138 (133-145) mmol/L Potassium 4.2 (3.3-5.1) mmol/L Chloride 101 (96-108) mmol/L Carbon Dioxide 26 (22-30) mmol/L BUN 15 (8-23) mg/dl Creatinine 0.7 (0.7-1.2) mg/dl Glucose 105 (70-105) mg/dL Calcium 8.9 (8.6-10.4) mg/dl Adrenal panel 07/01/18 Range/Units 05:20 Sodium 138 (133-145) mmol/L Potassium 4.2 (3.3-5.1) mmol/L Chloride 101 (96-108) mmol/L Carbon Dioxide 26 (22-30) mmol/L BUN 15 (8-23) mg/dl Creatinine 0.7 (0.7-1.2) mg/dl Glucose 105 (70-105) mg/dL Calcium 8.9 (8.6-10.4) mg/dl Total Bilirubin 0.4 (0.0-1.0) mg/dL AST 17 (0-37) U/l ALT 30 (0-40) U/l Alkaline Phosphatase 139 H (39-117) U/L Total Protein 6.1 (5.9-8.4) gm/dL Albumin 3.3 (3.2-5.2) gm/dL Assessment and Plan (1) Sepsis affecting skin Problem details: Patient started on local wound care consisting of chlorhexidine washes, MIST treatment, Topical antibiotics and protect to dressing with Kerlix bandage. He is on broad-spectrum intravenous antibiotics which will be reevaluated and probably De-escalated later. Status: Acute Current Visit: Yes - Narrative A/P Narrative: Assessment: No acute interval changes. Mild situational anxiety. Plan: Continue current treatment. Ativan 0.5 mg by mouth when necessary for anxiety. - Time Spent With Patient Total time spent is greater than 50% in coordination of care (as documented) at patient's floor/unit and/or counseling patient: less than 15 minutes
[2018-07-01] MEDS: TAMSULOSIN 0.4 MG CAPSULE PO SCH (21:42)
[2018-07-01] MEDS: diphenhydrAMINE 25 MG CAPSULE PO PRN (21:43)
[2018-07-01] MEDS: traZODone HCL 50 MG TABLET PO PRN (23:41)
[2018-07-02] MEDS: oxyCODONE HCL 5 MG TABLET PO PRN ×2 (04:35→08:29)
[2018-07-02] MEDS: LOPERAMIDE 2 MG CAPSULE PO PRN ×2 (05:00→08:43)
[2018-07-02 05:33] LABS: Basophils # (Auto) 0.1 K/mcL (0.0-0.3); Eosinophils # (Auto) 0.1 K/mcL (0.0-0.7); Eosinophils % (Auto) 2.1 % (0.0-7.0); Granulocytes % (Auto) 62.2 % (38.0-78.0); Lymphocytes # (Auto) 1.8 K/mcL (1.5-4.8); Lymphocytes % (Auto) 26.8 % (15.5-49.0); Mean Cell Volume 101.1 fL (80.0-100.0); Mean Corpuscular HGB Conc 34.9 g/dL (31.0-36.0); Mean Corpuscular Hemoglobin 35.3 pg (26.0-34.0); Monocytes # (Auto) 0.5 K/mcL (0.1-0.9); Monocytes % (Auto) 7.9 % (1.0-12.0); Platelet Count 170 K/mcL (140-440); RBC 3.43 M/mcL (4.50-5.90); Red Cell Distribution Width 15.6 % (11.5-14.5)
[2018-07-02 06:00] LABS: ALT/SGPT 30 U/l (0-40); Albumin 3.4 gm/dL (3.2-5.2); Albumin/Globulin Ratio 1.2 (1.0-2.3); Alkaline Phosphatase 134 U/L (39-117); Bilirubin,Direct < 0.2 mg/dL (0.0-0.3); Blood Urea Nitrogen 13 mg/dl (8-23); Gamma Glutamyl Transpeptidase 23 U/L (8-61); Uric Acid 4.3 mg/dL (2.5-8.0)
[2018-07-02] MEDS: CEFEPIME 2 GM VIAL IV SCH ×2 (06:08→13:26)
[2018-07-02] MEDS: 0.9 % SODIUM CHLORIDE 10 ML SYRINGE IV SCH ×5 (06:08→21:23)
[2018-07-02] MEDS: LEVOTHYROXINE 150 MCG TABLET PO SCH (07:18)
[2018-07-02] MEDS: PANTOPRAZOLE 40 MG TABLET PO SCH (08:27)
[2018-07-02] MEDS: ZINC SULFATE 50 MG CAPSULE PO SCH (08:27)
[2018-07-02] MEDS: LACTOBACILLUS 1 CAPSULE PO SCH ×2 (08:27→21:22)
[2018-07-02] MEDS: LINEZOLID 600 MG TABLET PO SCH ×2 (08:27→21:23)
[2018-07-02] MEDS: ASCORBIC ACID 500 MG TABLET PO SCH (08:27)
[2018-07-02] MEDS: VIT A,C & E/LUTEIN/MINERALS TABLET PO SCH ×2 (08:27→21:23)
[2018-07-02] MEDS: ENOXAPARIN 40 MG/0.4 ML SYRINGE SQ SCH (08:28)
--- NOTE | 2018-07-02 09:46 | Internal Med Progress Note ---
Medical - PN: Subj Patient information: Note initiated : 07/02/18 at 9:44 am Service Date, if different from initiated Date: [] Patient: Aakash Arellano 73 y/o M admitted on 06/20/18 for Debridement and Pulse Lavage Right Foot. Chief Complaint: [] Interval history: Mr. Arellano is a 73 year old M with a history of treated hypertension, treated hypothyroidism, chronic pain, BPH who presents back to the emergency department with worsening redness and pain of his right lower extremity. On Monday, 06/15, patient [place] He is going to be camping with friends. 2 friends brought him to the emergency department. He had significant injury along the right sheets with a distal "J" laterally. He received irrigation of the wound with subsequent stitches. 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 He started taking that on Monday. On Monday prior to starting antibiotics he noticed that his leg was getting red and painful. On Monday he continued to be red and painful spot of oral antibiotics. He has had a double up on some of his usual home oxycodone to control the pain (from 10-20 mg every 4 hours as needed). Monday was seen in the emergency department here. There is erythema and pain. Margins were noted , he was given a dose of ceftriaxone and continued on cephalexin and asked to return if he did not improve. He returns today due to worsening erythema and pain of his right leg. Patient denies any fevers or chills associated with this. He's been mostly on the couch with his leg elevated. It's quite painful to get up, to move and to try to ambulate to the restroom. He's had no associated nausea or vomiting, no shaking chills. In the emergency department, erythema had progressed beyond the margins both distally and proximally (more so distally). He had an area of breakdown about a quarter of the way down from the proximal end of the laceration. There is concern this could be vascular insufficiency, he underwent CT angiography of the lower extremity showing patent vascular flow to the right leg. There was no notation of subcutaneous edema, no notation of any fascial changes. Patient's been admitted for further treatment of cellulitis associated with right leg laceration which has not responded to outpatient therapy. 06/21 Feels well today. Pain is decreased in the leg, also notes her is decreased edema. Blood cultures without growth. No areas of purulence/drainage to culture. Being seen by wound care. 06/22 Patient seen and examined today, seen with Dr. Irving, also discussed with Dr. Agudelo. Some necrosis in the midportion of the suture line, some mild purulence. Cultures taken. Pain in the leg continues with ambulation, though not as painful when he first came in. Edema continues to improve. 06/23 Status post debridement and washout in the OR by Dr. Agudelo this morning. A little groggy after anesthesia. No new complaints. Case discussed with ID this morning, we'll send screening for hepatitis and HIV given demographics. Patient believes he is had negative hepatitis screen in the past, though that was several years ago. Bacterial cultures as well as AFB, fungal cultures and tissue biopsy were collected intraoperatively. 06/24 Seen on rounds. No new complaints this morning. Superficial culture obtained on 06/22 growing coag-negative staph. From the intra-operative culture, Gram stain shows rare gram-positive cocci, culture pending. ARMANDO stain was negative for fungal elements. Remains on Zyvox and cefepime. 06/25 -Seen on a rounds. Discussed with nursing. Discussed with wound care nurse. -To start hyperbaric oxygen today -Continues on broad antimicrobials, no new culture data 06/26 slept well, no new complaints. ambulated to bathroom with some discomfort to the leg. 06/27 soft stools, too much form for lab to run a c.diff. stool softeners stopped yesterday. nausea. 06/28 loose stools per patient but none reported by nurse. with perianal irritation. 06/29 several loose BM's last night, soft per nursing. otherwise no new complaints. 06/30 no overnight events, diarrhea improving. 07/01 patient seen examined, no acute overnight issues, pt tolerating po diet well on abx as per ID and wound care 07/02 Pt seen examined, some anxiety issues last night, responded well to ativan. this am has no complaints slept ok, tolerating po diet well. awaiting cadaveric graft, IV abx to continue per ID/ Wound care. Pertinent ROS: Denies headache, dizziness Denies chest pain, palpitations Denies cough or shortness of breath Denies abdominal pain, nausea or vomiting. - Constitutional Vitals: Vital Signs Temp Pulse Resp BP Pulse Ox 98.4 F 73 16 106/70 91 07/02/18 07:31 07/02/18 07:31 07/02/18 07:31 07/02/18 07:31 07/02/18 07:31 Period Temp Pulse Resp BP Sys/Rios Pulse Ox Last 24 Hr 96.7 F-98.8 F 73-87 13-20 106-136/67-83 91-96 Intake and Output 07/01/18 07/02/18 07/02/18 21:59 05:59 13:59 Intake Total 300 / 300 480 / 480 Balance 300 / 300 480 / 480 Weight 197 lb Intake & Output: Intake & Output 07/01/18 07/02/18 07/02/18 21:59 05:59 13:59 Intake Total 300 / 300 480 / 480 Balance 300 / 300 480 / 480 Weight 197 lb Intake: Oral 300 / 300 480 / 480 Other: Meal Breakfast Percent of Meal Consumed 100% Stool Size Small Small Stool Color Brown Stool Consistency Soft Soft # Voids 2 1 # Bowel Movements 1 1 Exam: Constitutional; Afebrile, cooperative, alert, not in distress. Eyes- No icterus, , No periorbital swelling Ears- Ext ear normal, hearing normal to conversation. Neck- Midline trachea, supple Respiratory system: Air Entry equal on both sides, No crackles or wheezing, no rhonchi. CVS- Rate rhythm regular, S1,S2 heard, no gallop, no rub. Abdomen- Soft nontender abdomen, no organomegaly, no tenderness, no guarding or rigidity, [employer]- AOOx3, moving all extremities, no gross focal deficit noted. Medical - PN: Obj Da - Labs CBC & Chem 7: 07/02/18 04:47 07/02/18 04:47 Labs: Abnormal Lab Results 07/02/18 07/02/18 07/01/18 04:47 04:47 05:20 RBC 3.43 L Hgb 12.1 L Hct 34.7 L MCV 101.1 H MCH 35.3 H RDW 15.6 H MPV 7.1 L Creatinine 0.6 L Alkaline Phosphatase 134 H 139 H 07/01/18 05:20 RBC 3.32 L Hgb 11.6 L Hct 33.6 L MCV 101.2 H MCH 35.0 H RDW 15.7 H MPV 7.2 L Creatinine Alkaline Phosphatase Meds: Medications Acetaminophen (Tylenol) 650 mg PO Q6HP PRN PRN Reason: PAIN/FEVER > 101 Last Admin: 06/28/18 19:26 Dose: 650 mg Ascorbic Acid (Vitamin C) 1,000 mg PO DAILY [facility] Last Admin: 07/02/18 08:27 Dose: 1,000 mg Bisacodyl (Dulcolax) [address] DAILYP PRN PRN Reason: Constipation Cefepime HCl (Maxipime) 2 gm IV Q8H [facility] Last Admin: 07/02/18 06:08 Dose: 2 gm Diphenhydramine HCl (Benadryl) 25 mg PO HSP PRN PRN Reason: Insomnia Last Admin: 07/01/18 21:43 Dose: 25 mg Enoxaparin Sodium (Lovenox) 40 mg SQ DAILY [facility] Last Admin: 07/02/18 08:28 Dose: 40 mg Heparin Sodium (Porcine) (Heparin Flush) 2 ml IV Q12 [facility] Last Admin: 07/02/18 08:28 Dose: 2 ml Hydrocortisone (Hc Crm 1%) 1 dose TOPICAL TIDP PRN PRN Reason: Itching Last Admin: 06/30/18 22:12 Dose: 1 dose Lactobacillus Rhamnosus (Culturelle) 1 cap PO BID [facility] Last Admin: 07/02/18 08:27 Dose: 1 cap Levothyroxine Sodium (Synthroid) 150 mcg PO ACB [facility] Last Admin: 07/02/18 07:18 Dose: 150 mcg Linezolid (Zyvox) 600 mg PO Q12 [facility] Last Admin: 07/02/18 08:27 Dose: 600 mg Loperamide HCl (Imodium) 2 mg PO PRN PRN PRN Reason: Diarrhea Last Admin: 07/02/18 08:43 Dose: 2 mg Lorazepam (Ativan) 0.5 mg PO HSP PRN PRN Reason: ANXIETY/SEDATION Last Admin: 07/01/18 21:43 Dose: 0.5 mg Morphine Sulfate (Morphine) 0 mg IV Q4HP PRN PRN Reason: PAIN LEVEL > 6 Last Admin: 07/02/18 09:31 Dose: 2 mg Multivitamins/Minerals (Ocuvite) 1 tab PO BID [facility] Last Admin: 07/02/18 08:27 Dose: 1 tab Nicotine (Nicoderm) 14 mg TOPICAL DAILY@1400 [facility] Last Admin: 07/01/18 14:21 Dose: Not Given Magic Mouthwash Maalox:Benadryl: Viscous Lidocaine 2% 1 dose SSP Q2-4HP PRN PRN Reason: MOUTH PAIN Last Admin: 07/01/18 10:38 Dose: 1 dose Ondansetron HCl (Zofran) 4 mg IV Q4HP PRN PRN Reason: Nausea And Vomiting Oxycodone HCl (Roxicodone) 10 mg PO Q4HP PRN PRN Reason: PAIN LEVEL 3-6 Last Admin: 07/02/18 08:29 Dose: 10 mg Pantoprazole Sodium (Protonix) 40 mg PO QAMAC [facility] Last Admin: 07/02/18 08:27 Dose: 40 mg Polyethylene Glycol (Miralax) 17 gm PO DAILYP PRN PRN Reason: Constipation Last Admin: 06/23/18 17:27 Dose: 17 gm Sodium Chloride (Saline Flush) 10 ml IV Q8 [facility] Last Admin: 07/02/18 06:08 Dose: 10 ml Sodium Chloride (Saline Flush) 10 ml IV Q12 [facility] Last Admin: 07/02/18 08:28 Dose: 10 ml Tamsulosin HCl (Flomax) 0.4 mg PO HS [facility] Last Admin: 07/01/18 21:42 Dose: 0.4 mg Throat Lozenges (Cepacol) 1 lozenge PO PRN PRN PRN Reason: Sore Throat Last Admin: 06/27/18 06:41 Dose: 1 lozenge Trazodone HCl (Desyrel) 50 mg PO HSP PRN PRN Reason: Insomnia Last Admin: 07/01/18 23:41 Dose: 50 mg Zinc Sulfate (Zinc) 50 mg PO DAILY [facility] Last Admin: 07/02/18 08:27 Dose: 50 mg Medical - PN: A/P - Time Spent With Patient Total time spent is greater than 50% in coordination of care (as documented) at patient's floor/unit and/or counseling patient: - Narrative A/P Narrative: 73-year-old male presents with worsening erythema and pain of the right lower extremity after a wound from falling on rocks 5 days prior to presentation. Cellulitis RLL: s/p OR I&D/resection of necrotic superficial tissue. Remains on cefepime and linezolid (also with anti-toxin effect, vs. vanco) for broad coverage of gram positive and gram negative pathogens from wound associated with freshwater exposure, including coverage for Aeromonas, Pseudomonas as well as staph and strep. HIV screen negative. Hepatitis screen pending. -Per discussion with infectious disease specialist once d/c'd will go on Cipro / Zyvox orally for total antibiotic course 4 weeks. Patient follow-up Dr. Irving in 2 weeks. continue hyperbaric o2 and d/c when ok per wound surgeon Hypertension: Continue home meds. BP stable Hypothyroidism: cont home replacement. Degenerative disc disease with chronic pain on chronic opioids: stil requiring iv morhine, in addition to home dose of oxycodone, try to switch to oral dilaudid and see how he responds Anxiety- initially plan to consider ssri, but given interaction with zyvox, just use low dose ativan prn for now. patient has stable labs, hemodynamically stable, disposition as per wound care physician, awaiting cadaveric graft.
[2018-07-02] MEDS: [UNRECOGNIZED DRUG - OTHER] SSP PRN (12:58)
[2018-07-02] MEDS: NICOTINE 14 MG PATCH TOPICAL SCH ×2 (13:53→16:42)
[2018-07-02] MEDS: HYDROmorphone 2 MG TABLET PO PRN ×2 (14:01→19:29)
--- NOTE | 2018-07-02 15:58 | General Surgery Progress Note ---
Subjective Patient reports: no new complaints Narrative: Note initiated : 07/02/18 at 3:56 pm Service Date, if different from initiated Date: [] Patient: Adan,Aakash javier 73 y/o M admitted on 06/20/18 for Debridement and Pulse Lavage Right Foot. Chief Complaint: [] Patient had an uneventful night. I saw him in the morning and examined his wound along with Candice RN. Objective Temp Pulse Resp BP Pulse Ox 98.3 F 77 16 114/67 94 07/02/18 12:42 07/02/18 12:42 07/02/18 12:42 07/02/18 12:42 07/02/18 12:42 Afebrile. Vital signs are stable. No changes in general physical examination. There is necrosis of rotation flap which is still adherent to the wound base. This will require operating room debridement and placement of cadaver skin graft which is not available at this time. 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 Will continue this at this time and await availability of cadaver skin graft reporting him to the operating room. - Additional Data Intake & Output - Last 24 hours: Intake & Output 06/30/18 07/01/18 07/02/18 07/03/18 05:59 05:59 05:59 05:59 Intake Total 2410 / 2410 1440 / 1440 300 / 300 1200 / 1200 Output Total 500 / 500 Balance 1910 / 1910 1440 / 1440 300 / 300 1200 / 1200 Weight 198 lb 8 oz 198 lb 197 lb - Labs 07/02/18 04:47 07/02/18 04:47 Diabetes panel 07/02/18 Range/Units 04:47 Sodium 136 (133-145) mmol/L Potassium 4.2 (3.3-5.1) mmol/L Chloride 99 (96-108) mmol/L Carbon Dioxide 28 (22-30) mmol/L BUN 13 (8-23) mg/dl Creatinine 0.6 L (0.7-1.2) mg/dl Glucose 101 (70-105) mg/dL Calcium 9.0 (8.6-10.4) mg/dl AST 17 (0-37) U/l ALT 30 (0-40) U/l Alkaline Phosphatase 134 H (39-117) U/L Total Protein 6.2 (5.9-8.4) gm/dL Albumin 3.4 (3.2-5.2) gm/dL Triglycerides 72 (<150) mg/dl Calcium panel 07/02/18 Range/Units 04:47 Calcium 9.0 (8.6-10.4) mg/dl Phosphorus 3.5 (2.7-4.5) mg/dL Albumin 3.4 (3.2-5.2) gm/dL Pituitary panel 07/02/18 Range/Units 04:47 Sodium 136 (133-145) mmol/L Potassium 4.2 (3.3-5.1) mmol/L Chloride 99 (96-108) mmol/L Carbon Dioxide 28 (22-30) mmol/L BUN 13 (8-23) mg/dl Creatinine 0.6 L (0.7-1.2) mg/dl Glucose 101 (70-105) mg/dL Calcium 9.0 (8.6-10.4) mg/dl Adrenal panel 07/02/18 Range/Units 04:47 Sodium 136 (133-145) mmol/L Potassium 4.2 (3.3-5.1) mmol/L Chloride 99 (96-108) mmol/L Carbon Dioxide 28 (22-30) mmol/L BUN 13 (8-23) mg/dl Creatinine 0.6 L (0.7-1.2) mg/dl Glucose 101 (70-105) mg/dL Calcium 9.0 (8.6-10.4) mg/dl Total Bilirubin 0.5 (0.0-1.0) mg/dL AST 17 (0-37) U/l ALT 30 (0-40) U/l Alkaline Phosphatase 134 H (39-117) U/L Total Protein 6.2 (5.9-8.4) gm/dL Albumin 3.4 (3.2-5.2) gm/dL Assessment and Plan (1) Sepsis affecting skin Problem details: Patient started on local wound care consisting of chlorhexidine washes, MIST treatment, Topical antibiotics and protect to dressing with Kerlix bandage. He is on broad-spectrum intravenous antibiotics which will be reevaluated and probably De-escalated later. Status: Acute Current Visit: Yes - Narrative A/P Narrative: Assessment: Overall stable. No acute interval changes. Rates cadaver skin graft before repeat operating room debridement, excision of necrotic skin flap Followed by ultrasound debridement and placement of cadaver skin graft. Plan: Continue present management. - Time Spent With Patient Total time spent is greater than 50% in coordination of care (as documented) at patient's floor/unit and/or counseling patient: 15 - 24 minutes
[2018-07-02] MEDS: LORazepam 0.5 MG TABLET PO PRN ×2 (16:42→21:24)
--- NOTE | 2018-07-02 18:14 | Infectious Disease Prog Note ---
Subjective Patient information: Note initiated : 07/02/18 at 6:11 pm Service Date, if different from initiated Date: [] Patient: Aakash Arellano 73 y/o M admitted on 06/20/18 for Debridement and Pulse Lavage Right Foot. Chief Complaint: [] Interval history: pt doing fine overall. Endorses pain in right leg. Has been in hospital so far because of ongoing issues with flap necrosis and uptake. afebrile Objective - Vital Signs Vital signs: Vital Signs Temp Pulse Resp BP Pulse Ox 07/02/18 16:00 36.7 C 71 16 104/69 96 07/02/18 12:42 36.8 C 77 16 114/67 94 07/02/18 07:31 36.9 C 73 16 106/70 91 07/02/18 04:00 37.0 C 80 16 113/74 96 07/01/18 23:43 36.5 C 85 18 114/67 95 07/01/18 20:00 36.9 C 77 20 136/83 94 Intake and Output 07/02/18 07/02/18 07/02/18 05:59 13:59 21:59 Intake Total 300 / 300 1200 / 1200 480 / 480 Balance 300 / 300 1200 / 1200 480 / 480 Intake: Oral 300 / 300 1200 / 1200 480 / 480 Other: Meal Lunch Dinner Percent of Meal Consumed 100% 75% Stool Size Small Stool Color Brown Stool Consistency Soft # Voids 1 2 1 # Bowel Movements 1 1 Intake & Output: Intake & Output 07/02/18 07/02/18 07/02/18 05:59 13:59 21:59 Intake Total 300 / 300 1200 / 1200 480 / 480 Balance 300 / 300 1200 / 1200 480 / 480 Intake: Oral 300 / 300 1200 / 1200 480 / 480 Other: Meal Lunch Dinner Percent of Meal Consumed 100% 75% Stool Size Small Stool Color Brown Stool Consistency Soft # Voids 1 2 1 # Bowel Movements 1 1 - General Appearance General appearance: well-developed, well-nourished Integumentary: ulcer (has a superficial ulcer over the anterior sheets, with dark colored flap (s/o necrosis), no drainage or exudate, no signs of inflammation in the surroundings) - Lab 07/02/18 04:47 07/02/18 04:47 Most recent lab results Calcium 9.0 mg/dl (8.6-10.4) 07/02/18 04:47 Phosphorus 3.5 mg/dL (2.7-4.5) 07/02/18 04:47 Magnesium 1.9 mg/dL (1.6-2.5) 07/02/18 04:47 Microbiology 06/23/18 14:17 Leg - Lower Right ARMANDO Preparation - Final 06/23/18 14:17 Leg - Lower Right Skin Fungal Culture - Preliminary 06/23/18 14:17 Leg - Lower Right Gram Stain - Final 06/23/18 14:17 Leg - Lower Right Gram Stain - Final 06/23/18 14:17 Leg - Lower Right Anaerobic Culture - Preliminary Tissierella praeacuta 06/23/18 14:17 Leg - Lower Right Gram Stain - Final 06/23/18 14:17 Leg - Lower Right Wound Culture - Final 06/28/18 13:00 Stool C. difficile GDH Antigen & Toxins - Final 06/23/18 14:17 Leg - Lower Right Acid Fast Bacilli Culture & Smear - Preliminary 06/23/18 14:17 Leg - Right Acid Fast Bacilli Smear - Final 06/20/18 13:25 Blood Blood Culture - Final 06/20/18 13:10 Blood Blood Culture - Final 06/22/18 11:00 Leg - Lower Right Gram Stain - Final 06/22/18 11:00 Leg - Lower Right Tissue Culture - Final Coagulase negative staph Medications Active Medications: Acetaminophen (Tylenol) 650 mg PO Q6HP PRN PRN Reason: PAIN/FEVER > 101 Last Admin: 06/28/18 19:26 Dose: 650 mg Admin: 06/27/18 20:57 Dose: 650 mg Admin: 06/26/18 22:19 Dose: 650 mg Admin: 06/25/18 19:55 Dose: 650 mg Admin: 06/24/18 01:48 Dose: 650 mg Ascorbic Acid (Vitamin C) 1,000 mg PO DAILY MARG[facility]ITO Last Admin: 07/02/18 08:27 Dose: 1,000 mg Admin: 07/01/18 10:37 Dose: 1,000 mg Admin: 06/30/18 10:21 Dose: 1,000 mg Admin: 06/29/18 08:38 Dose: 1,000 mg Admin: 06/28/18 09:13 Dose: 1,000 mg Admin: 06/27/18 07:36 Dose: 1,000 mg Admin: 06/26/18 09:07 Dose: 1,000 mg Admin: 06/25/18 12:15 Dose: 1,000 mg Admin: 06/24/18 08:58 Dose: 1,000 mg Bisacodyl (Dulcolax) 10 mg OR DAILYP PRN PRN Reason: Constipation Diphenhydramine HCl (Benadryl) 25 mg PO HSP PRN PRN Reason: Insomnia Last Admin: 07/01/18 21:43 Dose: 25 mg Admin: 06/30/18 22:11 Dose: 25 mg Admin: 06/30/18 05:29 Dose: 25 mg Admin: 06/28/18 21:43 Dose: 25 mg Enoxaparin Sodium (Lovenox) 40 mg SQ DAILY [facility] Last Admin: 07/02/18 08:28 Dose: 40 mg Admin: 07/01/18 10:37 Dose: 40 mg Admin: 06/30/18 10:21 Dose: 40 mg Admin: 06/29/18 08:39 Dose: 40 mg Admin: 06/28/18 09:13 Dose: 40 mg Admin: 06/27/18 07:36 Dose: 40 mg Admin: 06/26/18 09:08 Dose: 40 mg Admin: 06/25/18 12:15 Dose: 40 mg Admin: 06/24/18 08:58 Dose: 40 mg Heparin Sodium (Porcine) (Heparin Flush) 2 ml IV Q12 [facility] Last Admin: 07/02/18 08:28 Dose: 2 ml Admin: 07/01/18 21:44 Dose: 2 ml Admin: 07/01/18 10:38 Dose: 2 ml Admin: 06/30/18 20:36 Dose: 2 ml Comments: Medication would not scan Admin: 06/30/18 10:21 Dose: 2 ml Admin: 06/29/18 21:01 Dose: Hydrocortisone (Hc Crm 1%) 1 dose TOPICAL TIDP PRN PRN Reason: Itching Last Admin: 06/30/18 22:12 Dose: 1 dose Admin: 06/30/18 12:53 Dose: 1 dose Admin: 06/30/18 05:31 Dose: 1 dose Admin: 06/27/18 15:19 Dose: 1 dose Hydromorphone HCl (Dilaudid) 4 mg PO Q4-6HP PRN PRN Reason: PAIN LEVEL 3-6 Last Admin: 07/02/18 14:01 Dose: 4 mg Lactobacillus Rhamnosus (Culturelle) 1 cap PO BID MARG[facility] Last Admin: 07/02/18 08:27 Dose: 1 cap Admin: 07/01/18 21:42 Dose: 1 cap Admin: 07/01/18 10:37 Dose: 1 cap Admin: 06/30/18 20:35 Dose: 1 cap Admin: 06/30/18 10:20 Dose: 1 cap Admin: 06/29/18 21:01 Dose: 1 cap Admin: 06/29/18 08:38 Dose: 1 cap Admin: 06/28/18 21:43 Dose: 1 cap Admin: 06/28/18 09:13 Dose: 1 cap Admin: 06/27/18 20:52 Dose: 1 cap Admin: 06/27/18 11:36 Dose: 1 cap Levothyroxine Sodium (Synthroid) 150 mcg PO ACB [facility] Last Admin: 07/02/18 07:18 Dose: 150 mcg Admin: 07/01/18 07:08 Dose: 150 mcg Admin: 06/30/18 10:21 Dose: 150 mcg Admin: 06/29/18 07:18 Dose: 150 mcg Admin: 06/28/18 07:14 Dose: 150 mcg Admin: 06/27/18 06:36 Dose: 150 mcg Admin: 06/26/18 07:00 Dose: 150 mcg Admin: 06/25/18 08:10 Dose: 150 mcg Admin: 06/24/18 06:43 Dose: 150 mcg Linezolid (Zyvox) 600 mg PO Q12 [facility] Last Admin: 07/02/18 08:27 Dose: 600 mg Admin: 07/01/18 21:42 Dose: 600 mg Admin: 07/01/18 10:37 Dose: 600 mg Admin: 06/30/18 20:36 Dose: 600 mg Admin: 06/30/18 10:21 Dose: 600 mg Admin: 06/29/18 21:02 Dose: 600 mg Admin: 06/29/18 08:39 Dose: 600 mg Admin: 06/28/18 21:43 Dose: 600 mg Admin: 06/28/18 09:13 Dose: 600 mg Admin: 06/27/18 20:52 Dose: 600 mg Admin: 06/27/18 07:36 Dose: 600 mg Admin: 06/26/18 20:38 Dose: 600 mg Admin: 06/26/18 09:07 Dose: 600 mg Admin: 06/25/18 21:08 Dose: 600 mg Admin: 06/25/18 12:14 Dose: 600 mg Admin: 06/24/18 21:15 Dose: 600 mg Admin: 06/24/18 08:58 Dose: 600 mg Admin: 06/23/18 21:18 Dose: 600 mg Admin: 06/23/18 12:41 Dose: 600 mg Loperamide HCl (Imodium) 2 mg PO PRN PRN PRN Reason: Diarrhea Last Admin: 07/02/18 08:43 Dose: 2 mg Admin: 07/02/18 05:00 Dose: 2 mg Admin: 06/30/18 21:22 Dose: 2 mg Admin: 06/30/18 05:21 Dose: 2 mg Admin: 06/29/18 08:47 Dose: 2 mg Admin: 06/29/18 07:18 Dose: 2 mg Admin: 06/28/18 15:35 Dose: 2 mg Lorazepam (Ativan) 0.5 mg PO TIDP PRN PRN Reason: ANXIETY/SEDATION Last Admin: 07/02/18 16:42 Dose: 0.5 mg Metronidazole (Flagyl) 500 mg PO Q8 [facility] Morphine Sulfate (Morphine) 0 mg IV Q4HP PRN PRN Reason: PAIN LEVEL > 6 Last Admin: 07/02/18 09:31 Dose: 2 mg Admin: 07/01/18 20:57 Dose: 2 mg Admin: 07/01/18 15:03 Dose: 2 mg Admin: 06/30/18 21:31 Dose: 2 mg Admin: 06/30/18 16:12 Dose: 2 mg Admin: 06/30/18 09:11 Dose: 2 mg Admin: 06/30/18 01:37 Dose: 2 mg Admin: 06/29/18 21:26 Dose: 4 mg Admin: 06/29/18 17:18 Dose: 4 mg Admin: 06/29/18 12:14 Dose: 4 mg Admin: 06/29/18 07:18 Dose: 2 mg Admin: 06/28/18 21:32 Dose: 4 mg Admin: 06/28/18 15:51 Dose: 4 mg Admin: 06/28/18 09:43 Dose: 4 mg Multivitamins/Minerals (Ocuvite) 1 tab PO BID [facility] Last Admin: 07/02/18 08:27 Dose: 1 tab Admin: 07/01/18 21:42 Dose: 1 tab Admin: 07/01/18 10:38 Dose: 1 tab Admin: 06/30/18 20:36 Dose: 1 tab Admin: 06/30/18 10:21 Dose: 1 tab Admin: 06/29/18 21:01 Dose: 1 tab Admin: 06/29/18 08:39 Dose: 1 tab Admin: 06/28/18 21:43 Dose: 1 tab Admin: 06/28/18 09:13 Dose: 1 tab Admin: 06/27/18 20:52 Dose: 1 tab Admin: 06/27/18 07:36 Dose: 1 tab Admin: 06/26/18 20:38 Dose: 1 tab Admin: 06/26/18 09:07 Dose: 1 tab Admin: 06/25/18 21:08 Dose: 1 tab Comments: Label damaged. Unable to scan Admin: 06/25/18 12:15 Dose: 1 tab Admin: 06/24/18 21:15 Dose: 1 tab Admin: 06/24/18 08:58 Dose: 1 tab Admin: 06/23/18 21:18 Dose: 1 tab Nicotine (Nicoderm) 14 mg TOPICAL DAILY@1400 [facility] Last Admin: 07/02/18 16:42 Dose: 14 mg Admin: 07/02/18 13:53 Dose: Not Given Non-Admin Reason: Patient Refused Admin: 07/01/18 14:21 Dose: Admin: 06/30/18 15:16 Dose: 14 mg Admin: 06/30/18 01:38 Dose: 14 mg Comments: Patient refused placement at scheduled time; requested at this time Admin: 06/29/18 17:58 Dose: Admin: 06/28/18 15:36 Dose: Not Given Non-Admin Reason: Patient Refused Admin: 06/27/18 15:20 Dose: 14 mg Magic Mouthwash Maalox:Benadryl: Viscous Lidocaine 2% 1 dose SSP Q2-4HP PRN PRN Reason: MOUTH PAIN Last Admin: 07/02/18 12:58 Dose: 1 dose Admin: 07/01/18 10:38 Dose: 1 dose Admin: 07/01/18 07:08 Dose: 1 dose Admin: 06/30/18 12:53 Dose: 1 dose Admin: 06/30/18 05:21 Dose: 1 dose Admin: 06/29/18 19:45 Dose: 1 dose Admin: 06/29/18 15:50 Dose: 1 dose Admin: 06/29/18 10:09 Dose: 1 dose Ondansetron HCl (Zofran) 4 mg IV Q4HP PRN PRN Reason: Nausea And Vomiting Pantoprazole Sodium (Protonix) 40 mg PO QAMAC [facility] Last Admin: 07/02/18 08:27 Dose: 40 mg Admin: 07/01/18 07:08 Dose: 40 mg Admin: 06/30/18 10:21 Dose: 40 mg Admin: 06/29/18 07:18 Dose: 40 mg Admin: 06/28/18 08:33 Dose: 40 mg Admin: 06/27/18 07:36 Dose: 40 mg Admin: 06/26/18 07:00 Dose: 40 mg Admin: 06/25/18 08:10 Dose: 40 mg Admin: 06/24/18 06:43 Dose: 40 mg Polyethylene Glycol (Miralax) 17 gm PO DAILYP PRN PRN Reason: Constipation Last Admin: 06/23/18 17:27 Dose: 17 gm Sodium Chloride (Saline Flush) 10 ml IV Q8 [facility] Last Admin: 07/02/18 13:53 Dose: 10 ml Admin: 07/02/18 06:08 Dose: 10 ml Admin: 07/01/18 21:44 Dose: 10 ml Comments: medication will not scan Admin: 07/01/18 16:32 Dose: 10 ml Comments: Will not scan Admin: 07/01/18 05:46 Dose: 10 ml Comments: Medication will not scan Admin: 06/30/18 21:23 Dose: 10 ml Comments: Medication will not scan Admin: 06/30/18 15:17 Dose: 10 ml Comments: Sticker does not work. Admin: 06/30/18 05:21 Dose: 10 ml Comments: Medication will not scan Admin: 06/29/18 21:41 Dose: 10 ml Admin: 06/29/18 15:34 Dose: 10 ml Admin: 06/29/18 05:06 Dose: 10 ml Admin: 06/28/18 21:47 Dose: 10 ml Admin: 06/28/18 15:36 Dose: 10 ml Admin: 06/28/18 05:16 Dose: 10 ml Admin: 06/27/18 20:54 Dose: Admin: 06/27/18 15:21 Dose: 10 ml Admin: 06/27/18 06:35 Dose: 10 ml Admin: 06/26/18 20:39 Dose: 10 ml Admin: 06/26/18 15:21 Dose: 10 ml Admin: 06/26/18 05:34 Dose: 10 ml Comments: Bar code does not scan! Admin: 06/25/18 22:05 Dose: 10 ml Comments: Does not recognize bar code. Would not scan. Admin: 06/25/18 16:06 Dose: 10 ml Admin: 06/25/18 05:54 Dose: 10 ml Admin: 06/24/18 21:16 Dose: 10 ml Admin: 06/24/18 14:50 Dose: 10 ml Admin: 06/24/18 05:55 Dose: 10 ml Admin: 06/23/18 21:19 Dose: 10 ml Admin: 06/23/18 12:42 Dose: 10 ml Sodium Chloride (Saline Flush) 10 ml IV Q12 [facility] Last Admin: 07/02/18 08:28 Dose: 10 ml Admin: 07/01/18 20:57 Dose: 10 ml Comments: Medication will not scan Admin: 07/01/18 10:39 Dose: 10 ml Comments: scan label does not work Admin: 06/30/18 20:36 Dose: 10 ml Comments: Medication will not scan Admin: 06/30/18 10:22 Dose: 10 ml Comments: Flush would not scan, neither would the scan label provided by pharm. Admin: 06/29/18 21:02 Dose: 10 ml Comments: Medication would not scan Tamsulosin HCl (Flomax) 0.4 mg PO HS [facility]O Last Admin: 07/01/18 21:42 Dose: 0.4 mg Admin: 06/30/18 20:35 Dose: 0.4 mg Admin: 06/29/18 21:01 Dose: 0.4 mg Admin: 06/28/18 21:43 Dose: 0.4 mg Admin: 06/27/18 20:52 Dose: 0.4 mg Admin: 06/26/18 20:38 Dose: 0.4 mg Admin: 06/25/18 21:08 Dose: 0.4 mg Admin: 06/24/18 21:15 Dose: 0.4 mg Admin: 06/23/18 21:18 Dose: 0.4 mg Throat Lozenges (Cepacol) 1 lozenge PO PRN PRN PRN Reason: Sore Throat Last Admin: 06/27/18 06:41 Dose: 1 lozenge Trazodone HCl (Desyrel) 50 mg PO HSP PRN PRN Reason: Insomnia Last Admin: 07/01/18 23:41 Dose: 50 mg Admin: 06/30/18 23:48 Dose: 50 mg Zinc Sulfate (Zinc) 50 mg PO DAILY [facility] Last Admin: 07/02/18 08:27 Dose: 50 mg Admin: 07/01/18 10:38 Dose: 50 mg Admin: 06/30/18 10:21 Dose: 50 mg Admin: 06/29/18 08:39 Dose: 50 mg Admin: 06/28/18 09:13 Dose: 50 mg Admin: 06/27/18 07:36 Dose: 50 mg Admin: 06/26/18 09:07 Dose: 50 mg Admin: 06/25/18 12:17 Dose: 50 mg Admin: 06/24/18 08:57 Dose: 50 mg Assessment and Plan - Narrative A/P Narrative: A: # Deep SSTI of Rt leg following trauma in setting of freshwater exposure, s/p surgical debridement on 06/24 for necrosis of flap: - complicated by development of flap necrosis of leg wound. awaiting cadaveric graft placement - will cover for both gram positive and gram neg organisms presumptively # NO sepsis: q SOFA score 0 - neg blood Cx so far Recommendations: - Stop IV Cefepime (broader coverage not needed per latest OR Cx) - Start PO Metronidazole 500 mg q8 hrs to cover Tissierella praeacuta (a gram neg anerobe) - continue PO Linezolid 600 mg q12 hrs - agree with HBO therapy and removal of necrotic flap - will plan for a total of 2 weeks course of antibiotics from date of next surgery. will follow while inpatient Marco Irving MD Infectious Diseases
[2018-07-02] MEDS: TAMSULOSIN 0.4 MG CAPSULE PO SCH (21:22)
[2018-07-02] MEDS: metroNIDAZOLE 500 MG TABLET PO SCH (21:23)
[2018-07-02] MEDS: diphenhydrAMINE 25 MG CAPSULE PO PRN (21:23)
[2018-07-03] MEDS: HYDROmorphone 2 MG TABLET PO PRN ×5 (01:41→19:50)
[2018-07-03] MEDS: 0.9 % SODIUM CHLORIDE 10 ML SYRINGE IV SCH ×5 (04:13→21:29)
[2018-07-03] MEDS: metroNIDAZOLE 500 MG TABLET PO SCH ×3 (05:55→21:24)
[2018-07-03 06:23] LABS: Basophils # (Auto) 0.1 K/mcL (0.0-0.3); Basophils % (Auto) 0.9 % (0.0-2.0); Eosinophils # (Auto) 0.1 K/mcL (0.0-0.7); Eosinophils % (Auto) 1.9 % (0.0-7.0); Granulocytes % (Auto) 66.7 % (38.0-78.0); Lymphocytes # (Auto) 1.8 K/mcL (1.5-4.8); Lymphocytes % (Auto) 23.8 % (15.5-49.0); Mean Cell Volume 101.3 fL (80.0-100.0); Mean Corpuscular HGB Conc 34.9 g/dL (31.0-36.0); Mean Corpuscular Hemoglobin 35.3 pg (26.0-34.0); Monocytes # (Auto) 0.5 K/mcL (0.1-0.9); Monocytes % (Auto) 6.7 % (1.0-12.0); Platelet Count 156 K/mcL (140-440); RBC 3.16 M/mcL (4.50-5.90); Red Cell Distribution Width 15.1 % (11.5-14.5)
[2018-07-03 06:53] LABS: ALT/SGPT 27 U/l (0-40); Albumin 3.3 gm/dL (3.2-5.2); Albumin/Globulin Ratio 1.3 (1.0-2.3); Alkaline Phosphatase 140 U/L (39-117); Bilirubin,Direct < 0.2 mg/dL (0.0-0.3); Blood Urea Nitrogen 15 mg/dl (8-23); Gamma Glutamyl Transpeptidase 19 U/L (8-61); Uric Acid 4.3 mg/dL (2.5-8.0)
[2018-07-03] MEDS: PANTOPRAZOLE 40 MG TABLET PO SCH (07:25)
[2018-07-03] MEDS: LEVOTHYROXINE 150 MCG TABLET PO SCH (07:25)
[2018-07-03] MEDS: [UNRECOGNIZED DRUG - OTHER] SSP PRN ×2 (07:31→20:20)
[2018-07-03] MEDS: ASCORBIC ACID 500 MG TABLET PO SCH (08:47)
[2018-07-03] MEDS: ENOXAPARIN 40 MG/0.4 ML SYRINGE SQ SCH (08:47)
[2018-07-03] MEDS: ZINC SULFATE 50 MG CAPSULE PO SCH (08:47)
[2018-07-03] MEDS: LACTOBACILLUS 1 CAPSULE PO SCH ×2 (08:47→21:24)
[2018-07-03] MEDS: VIT A,C & E/LUTEIN/MINERALS TABLET PO SCH ×2 (08:47→21:24)
[2018-07-03] MEDS: LINEZOLID 600 MG TABLET PO SCH ×2 (08:47→21:23)
--- NOTE | 2018-07-03 09:31 | Internal Med Progress Note ---
Medical - PN: Subj Patient information: Note initiated : 07/03/18 at 9:29 am Service Date, if different from initiated Date: [] Patient: Aakash Arellano 73 y/o M admitted on 06/20/18 for Debridement and Pulse Lavage Right Foot. Chief Complaint: [] Interval history: Mr. Arellano is a 73 year old M with a history of treated hypertension, treated hypothyroidism, chronic pain, BPH who presents back to the emergency department with worsening redness and pain of his right lower extremity. On Monday, 06/15, patient [place] [employer] [place]. He is going to be camping with friends. 2 friends brought him to the emergency department. He had significant injury along the right sheets with a distal "J" laterally. He received irrigation of the wound with subsequent stitches. Antibiotics were prescribed, however the patient was one aware and it was not until Monday, 3 days later that he was called by the pharmacy to moss picker her prescription for cephalexin. He started taking that on Monday. On Monday prior to starting antibiotics he noticed that his leg was getting red and painful. On Monday he continued to be red and painful spot of oral antibiotics. He has had a double up on some of his usual home oxycodone to control the pain (from 10-20 mg every 4 hours as needed). Monday was seen in the emergency department here. There is erythema and pain. Margins were noted , he was given a dose of ceftriaxone and continued on cephalexin and asked to return if he did not improve. He returns today due to worsening erythema and pain of his right leg. Patient denies any fevers or chills associated with this. He's been mostly on the couch with his leg elevated. It's quite painful to get up, to move and to try to ambulate to the restroom. He's had no associated nausea or vomiting, no shaking chills. In the emergency department, erythema had progressed beyond the margins both distally and proximally (more so distally). He had an area of breakdown about a quarter of the way down from the proximal end of the laceration. There is concern this could be vascular insufficiency, he underwent CT angiography of the lower extremity showing patent vascular flow to the right leg. There was no notation of subcutaneous edema, no notation of any fascial changes. Patient's been admitted for further treatment of cellulitis associated with right leg laceration which has not responded to outpatient therapy. 06/21 Feels well today. Pain is decreased in the leg, also notes her is decreased edema. Blood cultures without growth. No areas of purulence/drainage to culture. Being seen by wound care. 06/22 Patient seen and examined today, seen with Dr. Irving, also discussed with Dr. Agudelo. Some necrosis in the midportion of the suture line, some mild purulence. Cultures taken. Pain in the leg continues with ambulation, though not as painful when he first came in. Edema continues to improve. 06/23 Status post debridement and washout in the OR by Dr. Agudelo this morning. A little groggy after anesthesia. No new complaints. Case discussed with ID this morning, we'll send screening for hepatitis and HIV given demographics. Patient believes he is had negative hepatitis screen in the past, though that was several years ago. Bacterial cultures as well as AFB, fungal cultures and tissue biopsy were collected intraoperatively. 06/24 Seen on rounds. No new complaints this morning. Superficial culture obtained on 06/22 growing coag-negative staph. From the intra-operative culture, Gram stain shows rare gram-positive cocci, culture pending. ARMANDO stain was negative for fungal elements. Remains on Zyvox and cefepime. 06/25 -Seen on a rounds. Discussed with nursing. Discussed with wound care nurse. -To start hyperbaric oxygen today -Continues on broad antimicrobials, no new culture data 06/26 slept well, no new complaints. ambulated to bathroom with some discomfort to the leg. 06/27 soft stools, too much form for lab to run a c.diff. stool softeners stopped yesterday. nausea. 06/28 loose stools per patient but none reported by nurse. with perianal irritation. 06/29 several loose BM's last night, soft per nursing. otherwise no new complaints. 06/30 no overnight events, diarrhea improving. 07/01 patient seen examined, no acute overnight issues, pt tolerating po diet well on abx as per ID and wound care 07/02 Pt seen examined, some anxiety issues last night, responded well to ativan. this am has no complaints slept ok, tolerating po diet well. awaiting cadaveric graft, IV abx to continue per ID/ Wound care. 07/03 Pt seen examined, no changes, antibiotics changed to metronidazole and linezolid as per ID Graft anticipated in AM Pertinent ROS: Denies headache, dizziness Denies chest pain, palpitations Denies cough or shortness of breath Denies abdominal pain, nausea or vomiting. - Constitutional Vitals: Vital Signs Temp Pulse Resp BP Pulse Ox 97.4 F 72 16 97/63 92 07/03/18 06:49 07/03/18 07:32 07/03/18 07:32 07/03/18 06:49 07/03/18 07:32 Period Temp Pulse Resp BP Sys/Rios Pulse Ox Last 24 Hr 97.4 F-98.5 F 71-85 14-16 97-124/63-78 91-96 Intake and Output 07/02/18 07/03/18 07/03/18 21:59 05:59 13:59 Intake Total 480 / 480 740 / 740 400 / 400 Balance 480 / 480 740 / 740 400 / 400 Weight 197 lb Intake & Output: Intake & Output 07/02/18 07/03/18 07/03/18 21:59 05:59 13:59 Intake Total 480 / 480 740 / 740 400 / 400 Balance 480 / 480 740 / 740 400 / 400 Weight 197 lb Intake: Oral 480 / 480 740 / 740 400 / 400 Other: Meal Dinner [place], milk Breakfast Percent of Meal Consumed 75% 100% 100% Feeding Ability Independent Independent Stool Size Moderate Stool Color Brown Stool Consistency Soft Formed # Voids 1 1 # Bowel Movements 1 Exam: Constitutional; Afebrile, cooperative, alert, not in distress. Eyes- No icterus, , No periorbital swelling Ears- Ext ear normal, hearing normal to conversation. Neck- Midline trachea, supple Respiratory system: Air Entry equal on both sides, No crackles or wheezing, no rhonchi. CVS- Rate rhythm regular, S1,S2 heard, no gallop, no rub. 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 Medical - PN: Obj Da - Labs CBC & Chem 7: 07/03/18 04:00 07/03/18 04:00 Labs: Abnormal Lab Results 07/03/18 07/03/18 07/02/18 04:00 04:00 04:47 RBC 3.16 L Hgb 11.2 L Hct 32.0 L MCV 101.3 H MCH 35.3 H RDW 15.1 H MPV Creatinine 0.6 L 0.6 L Glucose 116 H Alkaline Phosphatase 140 H 134 H 07/02/18 07/01/18 07/01/18 04:47 05:20 05:20 RBC 3.43 L 3.32 L Hgb 12.1 L 11.6 L Hct 34.7 L 33.6 L MCV 101.1 H 101.2 H MCH 35.3 H 35.0 H RDW 15.6 H 15.7 H MPV 7.1 L 7.2 L Creatinine Glucose Alkaline Phosphatase 139 H Meds: Medications Acetaminophen (Tylenol) 650 mg PO Q6HP PRN PRN Reason: PAIN/FEVER > 101 Last Admin: 06/28/18 19:26 Dose: 650 mg Ascorbic Acid (Vitamin C) 1,000 mg PO DAILY [facility] Last Admin: 07/03/18 08:47 Dose: 1,000 mg Bisacodyl (Dulcolax) 10 mg MN DAILYP PRN PRN Reason: Constipation Diphenhydramine HCl (Benadryl) 25 mg PO HSP PRN PRN Reason: Insomnia Last Admin: 07/02/18 21:23 Dose: 25 mg Enoxaparin Sodium (Lovenox) 40 mg SQ DAILY [facility] Last Admin: 07/03/18 08:47 Dose: 40 mg Heparin Sodium (Porcine) (Heparin Flush) 2 ml IV Q12 [facility] Last Admin: 07/03/18 08:46 Dose: 2 ml Hydrocortisone (Hc Crm 1%) 1 dose TOPICAL TIDP PRN PRN Reason: Itching Last Admin: 06/30/18 22:12 Dose: 1 dose Hydromorphone HCl (Dilaudid) 4 mg PO Q4-6HP PRN PRN Reason: PAIN LEVEL 3-6 Last Admin: 07/03/18 07:31 Dose: 4 mg Lactobacillus Rhamnosus (Culturelle) 1 cap PO BID [facility] Last Admin: 07/03/18 08:47 Dose: 1 cap Levothyroxine Sodium (Synthroid) 150 mcg PO ACB [facility] Last Admin: 07/03/18 07:25 Dose: 150 mcg Linezolid (Zyvox) 600 mg PO Q12 [facility] Last Admin: 07/03/18 08:47 Dose: 600 mg Loperamide HCl (Imodium) 2 mg PO PRN PRN PRN Reason: Diarrhea Last Admin: 07/02/18 08:43 Dose: 2 mg Lorazepam (Ativan) 0.5 mg PO TIDP PRN PRN Reason: ANXIETY/SEDATION Last Admin: 07/02/18 21:24 Dose: 0.5 mg Metronidazole (Flagyl) 500 mg PO Q8 [facility] Last Admin: 07/03/18 05:55 Dose: 500 mg Morphine Sulfate (Morphine) 0 mg IV Q4HP PRN PRN Reason: PAIN LEVEL > 6 Last Admin: 07/03/18 08:47 Dose: 4 mg Multivitamins/Minerals (Ocuvite) 1 tab PO BID [facility] Last Admin: 07/03/18 08:47 Dose: 1 tab Nicotine (Nicoderm) 14 mg TOPICAL DAILY@1400 [facility] Last Admin: 07/02/18 16:42 Dose: 14 mg Magic Mouthwash Maalox:Benadryl: Viscous Lidocaine 2% 1 dose SSP Q2-4HP PRN PRN Reason: MOUTH PAIN Last Admin: 07/03/18 07:31 Dose: 1 dose Ondansetron HCl (Zofran) 4 mg IV Q4HP PRN PRN Reason: Nausea And Vomiting Pantoprazole Sodium (Protonix) 40 mg PO QAMAC [facility] Last Admin: 07/03/18 07:25 Dose: 40 mg Polyethylene Glycol (Miralax) 17 gm PO DAILYP PRN PRN Reason: Constipation Last Admin: 06/23/18 17:27 Dose: 17 gm Sodium Chloride (Saline Flush) 10 ml IV Q8 [facility] Last Admin: 07/03/18 04:13 Dose: 10 ml Sodium Chloride (Saline Flush) 10 ml IV Q12 [facility] Last Admin: 07/03/18 08:48 Dose: 10 ml Tamsulosin HCl (Flomax) 0.4 mg PO HS [facility] Last Admin: 07/02/18 21:22 Dose: 0.4 mg Throat Lozenges (Cepacol) 1 lozenge PO PRN PRN PRN Reason: Sore Throat Last Admin: 06/27/18 06:41 Dose: 1 lozenge Trazodone HCl (Desyrel) 50 mg PO HSP PRN PRN Reason: Insomnia Last Admin: 07/01/18 23:41 Dose: 50 mg Zinc Sulfate (Zinc) 50 mg PO DAILY [facility] Last Admin: 07/03/18 08:47 Dose: 50 mg Medical - PN: A/P - Time Spent With Patient Total time spent is greater than 50% in coordination of care (as documented) at patient's floor/unit and/or counseling patient: - Narrative A/P Narrative: 73-year-old male presents with worsening erythema and pain of the right lower extremity after a wound from falling on rocks 5 days prior to presentation. Cellulitis RLL: on flagyl, linezolid per ID, 2 more weeks post graft placement, which is expected tomorrow. Hypertension: Continue home meds. BP stable Hypothyroidism: cont home replacement. Degenerative disc disease with chronic pain on chronic opioids: stil requiring iv morhine, in addition to home dose of oxycodone, try to switch to oral dilaudid and see how he responds, pain control seems better. Anxiety- initially plan to consider ssri, but given interaction with zyvox, just use low dose ativan prn for now. patient has stable labs, hemodynamically stable, disposition as per wound care physician, awaiting cadaveric graft.
[2018-07-03] MEDS: LORazepam 0.5 MG TABLET PO PRN ×2 (11:51→21:24)
[2018-07-03] MEDS: ACETAMINOPHEN 325 MG TABLET PO PRN ×2 (11:51→21:26)
[2018-07-03] MEDS: LOPERAMIDE 2 MG CAPSULE PO PRN (11:51)
--- NOTE | 2018-07-03 13:41 | Infectious Disease Prog Note ---
Subjective Patient information: Note initiated : 07/03/18 at 1:39 pm Service Date, if different from initiated Date: [] Patient: Aakash Arellano 73 y/o M admitted on 06/20/18 for Debridement and Pulse Lavage Right Foot. Chief Complaint: [] Objective Objective Narrative: Patient is doing fine overall. His right leg pain is under control with pain medication. Denies any fever, chills, nausea, vomiting, diarrhea - Vital Signs Vital signs: Vital Signs Temp Pulse Resp BP BP Pulse Ox 07/03/18 12:00 36.1 C 89 15 117/79 98 07/03/18 07:32 72 16 92 07/03/18 06:49 36.3 C 76 15 97/63 92 07/03/18 04:05 36.6 C 74 14 105/65 92 07/03/18 00:28 36.4 C 84 16 103/65 91 07/02/18 19:55 36.9 C 85 14 124/78 94 07/02/18 16:00 36.7 C 71 16 104/69 96 Intake and Output 07/02/18 07/03/18 07/03/18 21:59 05:59 13:59 Intake Total 480 / 480 740 / 740 400 / 400 Balance 480 / 480 740 / 740 400 / 400 Intake: Oral 480 / 480 740 / 740 400 / 400 Other: Meal Dinner [place], milk Breakfast Percent of Meal Consumed 75% 100% 100% Feeding Ability Independent Independent Stool Size Moderate Moderate Stool Color Brown Brown Stool Consistency Soft Soft Formed # Voids 1 1 1 # Bowel Movements 1 1 Weight 89.358 kg Intake & Output: Intake & Output 07/02/18 07/03/18 07/03/18 21:59 05:59 13:59 Intake Total 480 / 480 740 / 740 400 / 400 Balance 480 / 480 740 / 740 400 / 400 Weight 89.358 kg Intake: Oral 480 / 480 740 / 740 400 / 400 Other: Meal Dinner [place], milk Breakfast Percent of Meal Consumed 75% 100% 100% Feeding Ability Independent Independent Stool Size Moderate Moderate Stool Color Brown Brown Stool Consistency Soft Soft Formed # Voids 1 1 1 # Bowel Movements 1 1 - General Appearance General appearance: well-nourished - Lab 07/03/18 04:00 07/03/18 04:00 Most recent lab results Calcium 8.9 mg/dl (8.6-10.4) 07/03/18 04:00 Phosphorus 3.5 mg/dL (2.7-4.5) 07/03/18 04:00 Magnesium 2.0 mg/dL (1.6-2.5) 07/03/18 04:00 Microbiology 06/23/18 14:17 Leg - Lower Right ARMANDO Preparation - Final 06/23/18 14:17 Leg - Lower Right Skin Fungal Culture - Preliminary 06/23/18 14:17 Leg - Lower Right Gram Stain - Final 06/23/18 14:17 Leg - Lower Right Gram Stain - Final 06/23/18 14:17 Leg - Lower Right Anaerobic Culture - Preliminary Tissierella praeacuta 06/23/18 14:17 Leg - Lower Right Gram Stain - Final 06/23/18 14:17 Leg - Lower Right Wound Culture - Final 06/28/18 13:00 Stool C. difficile GDH Antigen & Toxins - Final 06/23/18 14:17 Leg - Lower Right Acid Fast Bacilli Culture & Smear - Preliminary 06/23/18 14:17 Leg - Right Acid Fast Bacilli Smear - Final 06/20/18 13:25 Blood Blood Culture - Final 06/20/18 13:10 Blood Blood Culture - Final 06/22/18 11:00 Leg - Lower Right Gram Stain - Final 06/22/18 11:00 Leg - Lower Right Tissue Culture - Final Coagulase negative staph Medications Active Medications: Acetaminophen (Tylenol) 650 mg PO Q6HP PRN PRN Reason: PAIN/FEVER > 101 Last Admin: 07/03/18 11:51 Dose: 650 mg Admin: 06/28/18 19:26 Dose: 650 mg Admin: 06/27/18 20:57 Dose: 650 mg Admin: 06/26/18 22:19 Dose: 650 mg Admin: 06/25/18 19:55 Dose: 650 mg Admin: 06/24/18 01:48 Dose: 650 mg Ascorbic Acid (Vitamin C) 1,000 mg PO DAILY MARGARITO Last Admin: 07/03/18 08:47 Dose: 1,000 mg Admin: 07/02/18 08:27 Dose: 1,000 mg Admin: 07/01/18 10:37 Dose: 1,000 mg Admin: 06/30/18 10:21 Dose: 1,000 mg Admin: 06/29/18 08:38 Dose: 1,000 mg Admin: 06/28/18 09:13 Dose: 1,000 mg Admin: 06/27/18 07:36 Dose: 1,000 mg Admin: 06/26/18 09:07 Dose: 1,000 mg Admin: 06/25/18 12:15 Dose: 1,000 mg Admin: 06/24/18 08:58 Dose: 1,000 mg Bisacodyl (Dulcolax) 10 mg SD DAILYP PRN PRN Reason: Constipation Diphenhydramine HCl (Benadryl) 25 mg PO HSP PRN PRN Reason: Insomnia Last Admin: 07/02/18 21:23 Dose: 25 mg Admin: 07/01/18 21:43 Dose: 25 mg Admin: 06/30/18 22:11 Dose: 25 mg Admin: 06/30/18 05:29 Dose: 25 mg Admin: 06/28/18 21:43 Dose: 25 mg Enoxaparin Sodium (Lovenox) 40 mg SQ DAILY [facility] Last Admin: 07/03/18 08:47 Dose: 40 mg Admin: 07/02/18 08:28 Dose: 40 mg Admin: 07/01/18 10:37 Dose: 40 mg Admin: 06/30/18 10:21 Dose: 40 mg Admin: 06/29/18 08:39 Dose: 40 mg Admin: 06/28/18 09:13 Dose: 40 mg Admin: 06/27/18 07:36 Dose: 40 mg Admin: 06/26/18 09:08 Dose: 40 mg Admin: 06/25/18 12:15 Dose: 40 mg Admin: 06/24/18 08:58 Dose: 40 mg Heparin Sodium (Porcine) (Heparin Flush) 2 ml IV Q12 [facility] Last Admin: 07/03/18 08:46 Dose: 2 ml Admin: 07/02/18 21:22 Dose: 2 ml Admin: 07/02/18 08:28 Dose: 2 ml Admin: 07/01/18 21:44 Dose: 2 ml Admin: 07/01/18 10:38 Dose: 2 ml Admin: 06/30/18 20:36 Dose: 2 ml Comments: Medication would not scan Admin: 06/30/18 10:21 Dose: 2 ml Admin: 06/29/18 21:01 Dose: Hydrocortisone (Hc Crm 1%) 1 dose TOPICAL TIDP PRN PRN Reason: Itching Last Admin: 06/30/18 22:12 Dose: 1 dose Admin: 06/30/18 12:53 Dose: 1 dose Admin: 06/30/18 05:31 Dose: 1 dose Admin: 06/27/18 15:19 Dose: 1 dose Hydromorphone HCl (Dilaudid) 4 mg PO Q4-6HP PRN PRN Reason: PAIN LEVEL 3-6 Last Admin: 07/03/18 11:49 Dose: 4 mg Admin: 07/03/18 07:31 Dose: 4 mg Admin: 07/03/18 01:41 Dose: 4 mg Admin: 07/02/18 19:29 Dose: 4 mg Admin: 07/02/18 14:01 Dose: 4 mg Gentamicin Sulfate 40 mg/Clindamycin Phosphate 300 mg/Bacitracin 25,000 unit/ Sodium Chloride 503 mls @ 1 mls/hr IRR ONCE ONE Stop: 07/25/18 06:29 Lactobacillus Rhamnosus (Culturelle) 1 cap PO BID MARGARITO Last Admin: 07/03/18 08:47 Dose: 1 cap Admin: 07/02/18 21:22 Dose: 1 cap Admin: 07/02/18 08:27 Dose: 1 cap Admin: 07/01/18 21:42 Dose: 1 cap Admin: 07/01/18 10:37 Dose: 1 cap Admin: 06/30/18 20:35 Dose: 1 cap Admin: 06/30/18 10:20 Dose: 1 cap Admin: 06/29/18 21:01 Dose: 1 cap Admin: 06/29/18 08:38 Dose: 1 cap Admin: 06/28/18 21:43 Dose: 1 cap Admin: 06/28/18 09:13 Dose: 1 cap Admin: 06/27/18 20:52 Dose: 1 cap Admin: 06/27/18 11:36 Dose: 1 cap Levothyroxine Sodium (Synthroid) 150 mcg PO ACB MARGARITO Last Admin: 07/03/18 07:25 Dose: 150 mcg Admin: 07/02/18 07:18 Dose: 150 mcg Admin: 07/01/18 07:08 Dose: 150 mcg Admin: 06/30/18 10:21 Dose: 150 mcg Admin: 06/29/18 07:18 Dose: 150 mcg Admin: 06/28/18 07:14 Dose: 150 mcg Admin: 06/27/18 06:36 Dose: 150 mcg Admin: 06/26/18 07:00 Dose: 150 mcg Admin: 06/25/18 08:10 Dose: 150 mcg Admin: 06/24/18 06:43 Dose: 150 mcg Linezolid (Zyvox) 600 mg PO Q12 MARGARITO Last Admin: 07/03/18 08:47 Dose: 600 mg Admin: 07/02/18 21:23 Dose: 600 mg Admin: 07/02/18 08:27 Dose: 600 mg Admin: 07/01/18 21:42 Dose: 600 mg Admin: 07/01/18 10:37 Dose: 600 mg Admin: 06/30/18 20:36 Dose: 600 mg Admin: 06/30/18 10:21 Dose: 600 mg Admin: 06/29/18 21:02 Dose: 600 mg Admin: 06/29/18 08:39 Dose: 600 mg Admin: 06/28/18 21:43 Dose: 600 mg Admin: 06/28/18 09:13 Dose: 600 mg Admin: 06/27/18 20:52 Dose: 600 mg Admin: 06/27/18 07:36 Dose: 600 mg Admin: 06/26/18 20:38 Dose: 600 mg Admin: 06/26/18 09:07 Dose: 600 mg Admin: 06/25/18 21:08 Dose: 600 mg Admin: 06/25/18 12:14 Dose: 600 mg Admin: 06/24/18 21:15 Dose: 600 mg Admin: 06/24/18 08:58 Dose: 600 mg Admin: 06/23/18 21:18 Dose: 600 mg Admin: 06/23/18 12:41 Dose: 600 mg Loperamide HCl (Imodium) 2 mg PO PRN PRN PRN Reason: Diarrhea Last Admin: 07/03/18 11:51 Dose: 2 mg Admin: 07/02/18 08:43 Dose: 2 mg Admin: 07/02/18 05:00 Dose: 2 mg Admin: 06/30/18 21:22 Dose: 2 mg Admin: 06/30/18 05:21 Dose: 2 mg Admin: 06/29/18 08:47 Dose: 2 mg Admin: 06/29/18 07:18 Dose: 2 mg Admin: 06/28/18 15:35 Dose: 2 mg Lorazepam (Ativan) 0.5 mg PO TIDP PRN PRN Reason: ANXIETY/SEDATION Last Admin: 07/03/18 11:51 Dose: 0.5 mg Admin: 07/02/18 21:24 Dose: 0.5 mg Admin: 07/02/18 16:42 Dose: 0.5 mg Metronidazole (Flagyl) 500 mg PO Q8 MARGARITO Last Admin: 07/03/18 05:55 Dose: 500 mg Admin: 07/02/18 21:23 Dose: 500 mg Morphine Sulfate (Morphine) 0 mg IV Q4HP PRN PRN Reason: PAIN LEVEL > 6 Last Admin: 07/03/18 08:47 Dose: 4 mg Admin: 07/02/18 22:12 Dose: 2 mg Admin: 07/02/18 09:31 Dose: 2 mg Admin: 07/01/18 20:57 Dose: 2 mg Admin: 07/01/18 15:03 Dose: 2 mg Admin: 06/30/18 21:31 Dose: 2 mg Admin: 06/30/18 16:12 Dose: 2 mg Admin: 06/30/18 09:11 Dose: 2 mg Admin: 06/30/18 01:37 Dose: 2 mg Admin: 06/29/18 21:26 Dose: 4 mg Admin: 06/29/18 17:18 Dose: 4 mg Admin: 06/29/18 12:14 Dose: 4 mg Admin: 06/29/18 07:18 Dose: 2 mg Admin: 06/28/18 21:32 Dose: 4 mg Admin: 06/28/18 15:51 Dose: 4 mg Admin: 06/28/18 09:43 Dose: 4 mg Multivitamins/Minerals (Ocuvite) 1 tab PO BID MARGARITO Last Admin: 07/03/18 08:47 Dose: 1 tab Admin: 07/02/18 21:23 Dose: 1 tab Admin: 07/02/18 08:27 Dose: 1 tab Admin: 07/01/18 21:42 Dose: 1 tab Admin: 07/01/18 10:38 Dose: 1 tab Admin: 06/30/18 20:36 Dose: 1 tab Admin: 06/30/18 10:21 Dose: 1 tab Admin: 06/29/18 21:01 Dose: 1 tab Admin: 06/29/18 08:39 Dose: 1 tab Admin: 06/28/18 21:43 Dose: 1 tab Admin: 06/28/18 09:13 Dose: 1 tab Admin: 06/27/18 20:52 Dose: 1 tab Admin: 06/27/18 07:36 Dose: 1 tab Admin: 06/26/18 20:38 Dose: 1 tab Admin: 06/26/18 09:07 Dose: 1 tab Admin: 06/25/18 21:08 Dose: 1 tab Comments: Label damaged. Unable to scan Admin: 06/25/18 12:15 Dose: 1 tab Admin: 06/24/18 21:15 Dose: 1 tab Admin: 06/24/18 08:58 Dose: 1 tab Admin: 06/23/18 21:18 Dose: 1 tab Nicotine (Nicoderm) 14 mg TOPICAL DAILY@1400 MARGARITO Last Admin: 07/02/18 16:42 Dose: 14 mg Admin: 07/02/18 13:53 Dose: Not Given Non-Admin Reason: Patient Refused Admin: 07/01/18 14:21 Dose: Admin: 06/30/18 15:16 Dose: 14 mg Admin: 06/30/18 01:38 Dose: 14 mg Comments: Patient refused placement at scheduled time; requested at this time Admin: 06/29/18 17:58 Dose: Admin: 06/28/18 15:36 Dose: Not Given Non-Admin Reason: Patient Refused Admin: 06/27/18 15:20 Dose: 14 mg Magic Mouthwash Maalox:Benadryl: Viscous Lidocaine 2% 1 dose SSP Q2-4HP PRN PRN Reason: MOUTH PAIN Last Admin: 07/03/18 07:31 Dose: 1 dose Admin: 07/02/18 12:58 Dose: 1 dose Admin: 07/01/18 10:38 Dose: 1 dose Admin: 07/01/18 07:08 Dose: 1 dose Admin: 06/30/18 12:53 Dose: 1 dose Admin: 06/30/18 05:21 Dose: 1 dose Admin: 06/29/18 19:45 Dose: 1 dose Admin: 06/29/18 15:50 Dose: 1 dose Admin: 06/29/18 10:09 Dose: 1 dose Ondansetron HCl (Zofran) 4 mg IV Q4HP PRN PRN Reason: Nausea And Vomiting Pantoprazole Sodium (Protonix) 40 mg PO QAMAC MARGARITO Last Admin: 07/03/18 07:25 Dose: 40 mg Admin: 07/02/18 08:27 Dose: 40 mg Admin: 07/01/18 07:08 Dose: 40 mg Admin: 06/30/18 10:21 Dose: 40 mg Admin: 06/29/18 07:18 Dose: 40 mg Admin: 06/28/18 08:33 Dose: 40 mg Admin: 06/27/18 07:36 Dose: 40 mg Admin: 06/26/18 07:00 Dose: 40 mg Admin: 06/25/18 08:10 Dose: 40 mg Admin: 06/24/18 06:43 Dose: 40 mg Polyethylene Glycol (Miralax) 17 gm PO DAILYP PRN PRN Reason: Constipation Last Admin: 06/23/18 17:27 Dose: 17 gm Sodium Chloride (Saline Flush) 10 ml IV Q8 MARGARITO Last Admin: 07/03/18 04:13 Dose: 10 ml Comments: medication will not scan Admin: 07/02/18 21:23 Dose: Not Given Non-Admin Reason: Duplicate Admin: 07/02/18 13:53 Dose: 10 ml Admin: 07/02/18 06:08 Dose: 10 ml Admin: 07/01/18 21:44 Dose: 10 ml Comments: medication will not scan Admin: 07/01/18 16:32 Dose: 10 ml Comments: Will not scan Admin: 07/01/18 05:46 Dose: 10 ml Comments: Medication will not scan Admin: 06/30/18 21:23 Dose: 10 ml Comments: Medication will not scan Admin: 06/30/18 15:17 Dose: 10 ml Comments: Sticker does not work. Admin: 06/30/18 05:21 Dose: 10 ml Comments: Medication will not scan Admin: 06/29/18 21:41 Dose: 10 ml Admin: 06/29/18 15:34 Dose: 10 ml Admin: 06/29/18 05:06 Dose: 10 ml Admin: 06/28/18 21:47 Dose: 10 ml Admin: 06/28/18 15:36 Dose: 10 ml Admin: 06/28/18 05:16 Dose: 10 ml Admin: 06/27/18 20:54 Dose: Admin: 06/27/18 15:21 Dose: 10 ml Admin: 06/27/18 06:35 Dose: 10 ml Admin: 06/26/18 20:39 Dose: 10 ml Admin: 06/26/18 15:21 Dose: 10 ml Admin: 06/26/18 05:34 Dose: 10 ml Comments: Bar code does not scan! Admin: 06/25/18 22:05 Dose: 10 ml Comments: Does not recognize bar code. Would not scan. Admin: 06/25/18 16:06 Dose: 10 ml Admin: 06/25/18 05:54 Dose: 10 ml Admin: 06/24/18 21:16 Dose: 10 ml Admin: 06/24/18 14:50 Dose: 10 ml Admin: 06/24/18 05:55 Dose: 10 ml Admin: 06/23/18 21:19 Dose: 10 ml Admin: 06/23/18 12:42 Dose: 10 ml Sodium Chloride (Saline Flush) 10 ml IV Q12 MARGARITO Last Admin: 07/03/18 08:48 Dose: 10 ml Admin: 07/02/18 21:22 Dose: 10 ml Comments: medication will not scan Admin: 07/02/18 08:28 Dose: 10 ml Admin: 07/01/18 20:57 Dose: 10 ml Comments: Medication will not scan Admin: 07/01/18 10:39 Dose: 10 ml Comments: scan label does not work Admin: 06/30/18 20:36 Dose: 10 ml Comments: Medication will not scan Admin: 06/30/18 10:22 Dose: 10 ml Comments: Flush would not scan, neither would the scan label provided by pharm. Admin: 06/29/18 21:02 Dose: 10 ml Comments: Medication would not scan Tamsulosin HCl (Flomax) 0.4 mg PO HS MARGARITO Last Admin: 07/02/18 21:22 Dose: 0.4 mg Admin: 07/01/18 21:42 Dose: 0.4 mg Admin: 06/30/18 20:35 Dose: 0.4 mg Admin: 06/29/18 21:01 Dose: 0.4 mg Admin: 06/28/18 21:43 Dose: 0.4 mg Admin: 06/27/18 20:52 Dose: 0.4 mg Admin: 06/26/18 20:38 Dose: 0.4 mg Admin: 06/25/18 21:08 Dose: 0.4 mg Admin: 06/24/18 21:15 Dose: 0.4 mg Admin: 06/23/18 21:18 Dose: 0.4 mg Throat Lozenges (Cepacol) 1 lozenge PO PRN PRN PRN Reason: Sore Throat Last Admin: 06/27/18 06:41 Dose: 1 lozenge Trazodone HCl (Desyrel) 50 mg PO HSP PRN PRN Reason: Insomnia Last Admin: 07/01/18 23:41 Dose: 50 mg Admin: 06/30/18 23:48 Dose: 50 mg Zinc Sulfate (Zinc) 50 mg PO DAILY MARGARITO Last Admin: 07/03/18 08:47 Dose: 50 mg Admin: 07/02/18 08:27 Dose: 50 mg Admin: 07/01/18 10:38 Dose: 50 mg Admin: 06/30/18 10:21 Dose: 50 mg Admin: 06/29/18 08:39 Dose: 50 mg Admin: 06/28/18 09:13 Dose: 50 mg Admin: 06/27/18 07:36 Dose: 50 mg Admin: 06/26/18 09:07 Dose: 50 mg Admin: 06/25/18 12:17 Dose: 50 mg Admin: 06/24/18 08:57 Dose: 50 mg Assessment and Plan - Narrative A/P Narrative: A: # Deep SSTI of Rt leg following trauma in setting of freshwater exposure, s/p surgical debridement on 06/24 for necrosis of flap: - complicated by development of flap necrosis of leg wound. 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 will follow while inpatient Marco Irving MD Infectious Diseases
--- NOTE | 2018-07-03 13:58 | General Surgery Progress Note ---
Subjective Narrative: Note initiated : 07/03/18 at 1:56 pm Service Date, if different from initiated Date: [] Patient: Aakash Arellano 73 y/o M admitted on 06/20/18 for Debridement and Pulse Lavage Right Foot. Chief Complaint: [] Afebrile. VSS. No changes in general physical examination. Right leg wound is stable. Well-demarcated dry gangrenous portion of flap. The remaining wound has granulated well and there is no undermining along the margins. Patient has responded well to hyperbaric oxygen therapy and is now ready for repeat debridement with excision of nonviable flap and grafting this area with the meshed AlloDerm cadaver skin graft. Objective Temp Pulse Resp BP Pulse Ox 97.0 F 89 15 117/79 98 07/03/18 12:00 07/03/18 12:00 07/03/18 12:00 07/03/18 12:00 07/03/18 12:00 AVSS No changes to OLIVE. No acute changes in the wound. - Additional Data Intake & Output - Last 24 hours: Intake & Output 07/01/18 07/02/18 07/03/18 07/04/18 05:59 05:59 05:59 05:59 Intake Total 1440 / 1440 300 / 300 2420 / 2420 400 / 400 Balance 1440 / 1440 300 / 300 2420 / 2420 400 / 400 Weight 198 lb 197 lb 197 lb 197 lb - Labs 07/03/18 04:00 07/03/18 04:00 Diabetes panel 07/03/18 Range/Units 04:00 Sodium 137 (133-145) mmol/L Potassium 4.3 (3.3-5.1) mmol/L Chloride 98 (96-108) mmol/L Carbon Dioxide 28 (22-30) mmol/L BUN 15 (8-23) mg/dl Creatinine 0.6 L (0.7-1.2) mg/dl Glucose 116 H (70-105) mg/dL Calcium 8.9 (8.6-10.4) mg/dl AST 18 (0-37) U/l ALT 27 (0-40) U/l Alkaline Phosphatase 140 H (39-117) U/L Total Protein 5.9 (5.9-8.4) gm/dL Albumin 3.3 (3.2-5.2) gm/dL Triglycerides 62 (<150) mg/dl Calcium panel 07/03/18 Range/Units 04:00 Calcium 8.9 (8.6-10.4) mg/dl Phosphorus 3.5 (2.7-4.5) mg/dL Albumin 3.3 (3.2-5.2) gm/dL Pituitary panel 07/03/18 Range/Units 04:00 Sodium 137 (133-145) mmol/L Potassium 4.3 (3.3-5.1) mmol/L Chloride 98 (96-108) mmol/L Carbon Dioxide 28 (22-30) mmol/L BUN 15 (8-23) mg/dl Creatinine 0.6 L (0.7-1.2) mg/dl Glucose 116 H (70-105) mg/dL Calcium 8.9 (8.6-10.4) mg/dl Adrenal panel 07/03/18 Range/Units 04:00 Sodium 137 (133-145) mmol/L Potassium 4.3 (3.3-5.1) mmol/L Chloride 98 (96-108) mmol/L Carbon Dioxide 28 (22-30) mmol/L BUN 15 (8-23) mg/dl Creatinine 0.6 L (0.7-1.2) mg/dl Glucose 116 H (70-105) mg/dL Calcium 8.9 (8.6-10.4) mg/dl Total Bilirubin 0.4 (0.0-1.0) mg/dL AST 18 (0-37) U/l ALT 27 (0-40) U/l Alkaline Phosphatase 140 H (39-117) U/L Total Protein 5.9 (5.9-8.4) gm/dL Albumin 3.3 (3.2-5.2) gm/dL Assessment and Plan (1) Sepsis affecting skin Problem details: Patient started on local wound care consisting of chlorhexidine washes, MIST treatment, Topical antibiotics and protect to dressing with Kerlix bandage. He is on broad-spectrum intravenous antibiotics which will be reevaluated and probably De-escalated later. Status: Acute Current Visit: Yes - Time Spent With Patient Total time spent is greater than 50% in coordination of care (as documented) at patient's floor/unit and/or counseling patient: Assessment: Wound now ready for repeat debridement and AlloDerm meshed cadaver skin graft. I spoke with the patient at length and answered all his questions. Gave him an idea for postoperative wound care and plan of discharge. Plan: Planning on discharging him with oral antibiotics and follow up with the wound care clinic for ongoing management. 15 - 24 minutes
[2018-07-03] MEDS: NICOTINE 14 MG PATCH TOPICAL SCH (17:16)
[2018-07-03] MEDS: diphenhydrAMINE 25 MG CAPSULE PO PRN (20:18)
[2018-07-03] MEDS: TAMSULOSIN 0.4 MG CAPSULE PO SCH (21:23)
[2018-07-04] MEDS: HYDROmorphone 2 MG TABLET PO PRN (00:06)
[2018-07-04] MEDS: traZODone HCL 50 MG TABLET PO PRN (00:08)
[2018-07-04] MEDS: HYDROCORTISONE CRM 1% TUBE 30GM TOPICAL PRN (04:00)
[2018-07-04] MEDS: 0.9 % SODIUM CHLORIDE 10 ML SYRINGE IV SCH ×5 (04:01→22:28)
[2018-07-04] MEDS: metroNIDAZOLE 500 MG TABLET PO SCH ×3 (05:59→22:28)
[2018-07-04] MEDS: PANTOPRAZOLE 40 MG TABLET PO SCH (07:04)
[2018-07-04] MEDS: LEVOTHYROXINE 150 MCG TABLET PO SCH (07:04)
[2018-07-04] MEDS ORDERED: IPRATROPIUM/ALBUTEROL 3 ML AMPUL.NEB NEB ONE (07:10)
[2018-07-04] MEDS ORDERED: GENTAMICIN SULFATE 80 MG, CLINDAMYCIN 600 MG, BACITRACIN 50,000 UNIT in 0.9 % SODIUM CH... IRR ONE (07:30)
[2018-07-04] MEDS ORDERED: DEXAMETHASONE 10 MG/ML VIAL IV ONE (07:41)
[2018-07-04] MEDS ORDERED: ePHEDrine 50 MG/ML AMPUL IV ONE (07:41)
[2018-07-04] MEDS ORDERED: fentaNYL 100 MCG/2 ML VIAL IV ONE (07:41)
[2018-07-04] MEDS ORDERED: PROPOFOL 200 MG/20 ML VIAL IV ONE (07:41)
[2018-07-04] MEDS ORDERED: LIDOCAINE HCL/PF 100 MG/5 ML SYRINGE IV ONE (07:41)
[2018-07-04] MEDS ORDERED: MIDAZOLAM 5 MG/5 ML VIAL IV ONE (07:41)
[2018-07-04] MEDS ORDERED: ONDANSETRON 4 MG/2 ML VIAL IV ONE (07:41)
[2018-07-04] MEDS ORDERED: FLUMAZENIL 0.1 MG/ML ML IV PRN (08:03)
[2018-07-04] MEDS ORDERED: PROMETHAZINE 25 MG/ML VIAL IV PRN (08:03)
[2018-07-04] MEDS ORDERED: BENZOCAINE/MENTHOL 1 LOZENGE PO PRN ×2 (08:03→10:20)
[2018-07-04] MEDS ORDERED: MEPERIDINE 25 MG/ML SYRINGE IV PRN (08:03)
[2018-07-04] MEDS ORDERED: ePHEDrine 50 MG/ML AMPUL IV PRN (08:03)
[2018-07-04] MEDS ORDERED: ONDANSETRON 4 MG/2 ML VIAL IV PRN ×2 (08:03→10:20)
[2018-07-04] MEDS ORDERED: IPRATROPIUM/ALBUTEROL 3 ML AMPUL.NEB NEB PRN ×2 (08:03→09:03)
[2018-07-04] MEDS ORDERED: ACETAMINOPHEN 1,000 MG/100 ML BOTTLE IV ONE (08:03)
[2018-07-04] MEDS ORDERED: METOPROLOL TARTRATE 5 MG/5 ML VIAL IV PRN (08:03)
[2018-07-04] MEDS ORDERED: METHOCARBAMOL 1,000 MG/10 ML VIAL IV PRN (08:03)
[2018-07-04] MEDS ORDERED: ATROPINE SULFATE 0.4 MG/ML VIAL IV PRN (08:03)
[2018-07-04] MEDS ORDERED: NALOXONE HCL 0.4 MG/ML VIAL IV PRN (08:03)
[2018-07-04] MEDS ORDERED: diphenhydrAMINE 50 MG/ML VIAL IV PRN (08:03)
[2018-07-04] MEDS ORDERED: LACTATED RINGERS 1,000 ML IV SCH (08:15)
[2018-07-04] MEDS: fentaNYL 100 MCG/2 ML VIAL IV PRN ×2 (08:45→08:55)
[2018-07-04] MEDS: HYDROmorphone 2 MG/ML VIAL IV PRN ×2 (09:09→09:24)
[2018-07-04] MEDS ORDERED: HYDROmorphone 2 MG/ML VIAL ONE (09:14)
--- NOTE | 2018-07-04 09:35 | Brief Operative Note ---
Date of procedure: 07/04/18 Pre-op diagnosis: Open post surgical wound / Flap necrosis Right leg Post-op diagnosis: same Procedure: Excision of necrotic flap, VERSAJET debridement of wound, EpiFix powder x 2 and Alloderm Cadaver skin graft 5 x 10 CM X 2. Grafts/Implants: Yes (Alloderm Cadaver skin graft 5 x 10 CM TWO pieces) Anesthesia: GLMA Findings: Necrotic flap over a granulating wound bed. Patient on HBOT and local wound care. Complications: none Surgeon: Arturo Agudelo Clinical Data Abstractor: Terrance Whaley Estimated blood loss (cc): 70 Specimens Removed/Pathology: none sent Condition: stable Disposition: PACU (OPeration well toelrated.)
[2018-07-04] MEDS ORDERED: LORazepam 2 MG/ML VIAL IV PRN (09:39)
[2018-07-04] MEDS ORDERED: LORazepam 2 MG/ML VIAL ONE (09:49)
--- NOTE | 2018-07-04 10:11 | Operative Note ---
DATE OF OPERATION: 07/04/2018 PREOPERATIVE DIAGNOSIS: Open postsurgical wound right lateral leg with a granulating wound bed and necrotic flap in the mid-portion of the wound. POSTOPERATIVE DIAGNOSIS: Open postsurgical wound right lateral leg with a granulating wound bed and necrotic flap in the mid-portion of the wound. OPERATION: Excision of necrotic flap. Versajet debridement of the wound. EpiFix powder placement and resurfacing of the wound with AlloDerm cadaver skin graft. Two pieces of graft were used 5 x 10 cm each. SURGEON: Arturo Agudelo M.D. CO-SURGEON: Terrance Whaley DPM. ANESTHESIA: General laryngeal mask airway. ANESTHESIOLOGIST: Anabel Shearer CRNA. INDICATION: This is the second visit to the operating room for this patient. He initially underwent excision of infected post-traumatic flap wound and evacuation of hematoma over one week ago. Currently, the wound is granulating well with a combination of local wound care, hyperbaric oxygen therapy and intravenous antibiotics. He has necrosis of the mid-portion of the wound where over 50-60% of the flap is necrosed. INTRAOPERATIVE FINDINGS: Wound dimensions after excision of the necrotic flap are 18 x 7 cm. PROCEDURE NOTE: After obtaining informed consent, patient was taken to the operating room. Timeout was called. He is already on systemic antibiotics. General anesthesia was given using laryngeal mask airway. The right lower extremity was widely cleaned, prepped and draped in the standard fashion. Preoperative photograph was taken. Previous retention sutures were removed, and the necrotic flap was excised with pickup and #10 scalpel blade. The next part consisted of careful surgical debridement of the wound bed using Versajet 15 mm angle hydro knife and antibiotic-containing normal saline. We used about 500 mL of normal saline mixed with 50,000 units of bacitracin, 600 mg of clindamycin and 80 mg of gentamicin. Tangential excision and debridement of the wound was carried out. Towards completion, the wound had good back bleeding from the margins and edges. Hemostasis was achieved with direct pressure and elevation. We used EpiFix microcrystalline powder. Two bottles were used. The powder was sprayed and placed onto the wound bed. Later the wound was covered with pretreated 5 x 10 cm pieces of AlloDerm. They were laid on the wound and secured along the edges with continuous running sutures of 2-0 PDS. These were interlocking intermittently. The wound bed was additionally secured with a few simple interrupted sutures in the mid-portion. All counts of swabs, instruments and needles were reported to be correct. At this time, the dressing consisted of Xeroform gauze, 4 x 4, AMD gauzes, Kerlix bandage reinforced with ABD pad and Webril, Coban and lastly secured with Víctor wrap. Estimated blood loss about 70 mL. Procedure was well tolerated. He recovered from anesthesia uneventfully. He was taken to in stable condition. Postoperatively, I saw the patient in the PACU. He had recovered well. He was hemodynamically stable and awaiting transfer to med/surg floor. VD:jose antonio Job ID: [id number] Doc ID: [id number] Arturo GÓMEZ
[2018-07-04] MEDS ORDERED: LOPERAMIDE 2 MG CAPSULE PO PRN (10:20)
[2018-07-04] MEDS ORDERED: ACETAMINOPHEN 325 MG TABLET PO PRN (10:20)
[2018-07-04] MEDS ORDERED: BISACODYL 10 MG SUPP.RECT PR PRN (10:20)
[2018-07-04] MEDS ORDERED: HYDROCORTISONE CRM 1% TUBE 30GM TOPICAL PRN (10:20)
[2018-07-04] MEDS ORDERED: traZODone HCL 50 MG TABLET PO PRN (10:20)
[2018-07-04] MEDS ORDERED: HYDROmorphone 2 MG TABLET PO PRN (10:20)
[2018-07-04] MEDS ORDERED: diphenhydrAMINE 25 MG CAPSULE PO PRN (10:20)
[2018-07-04] MEDS: LACTOBACILLUS 1 CAPSULE PO SCH ×2 (10:31→20:28)
[2018-07-04] MEDS: LINEZOLID 600 MG TABLET PO SCH ×2 (10:32→20:28)
[2018-07-04] MEDS: ASCORBIC ACID 500 MG TABLET PO SCH (10:32)
[2018-07-04] MEDS: VIT A,C & E/LUTEIN/MINERALS TABLET PO SCH ×2 (10:32→20:29)
[2018-07-04] MEDS: ZINC SULFATE 50 MG CAPSULE PO SCH (10:33)
[2018-07-04] MEDS: ENOXAPARIN 40 MG/0.4 ML SYRINGE SQ SCH (10:43)
[2018-07-04] MEDS ORDERED: KETOROLAC 15 MG/ML VIAL IV PRN (11:47)
--- NOTE | 2018-07-04 11:54 | Internal Med Progress Note ---
Medical - PN: Subj Patient information: Note initiated : 07/04/18 at 11:51 am Service Date, if different from initiated Date: [] Patient: Aakash Arellano 73 y/o M admitted on 06/20/18 for Debridement and Pulse Lavage Right Foot. Chief Complaint: [] Interval history: Mr. Arellano is a 73 year old M with a history of treated hypertension, treated hypothyroidism, chronic pain, BPH who presents back to the emergency department with worsening redness and pain of his right lower extremity. On Monday, 06/15, patient fell on [place]. He is going to be camping with friends. 2 friends brought him to the emergency department. He had significant injury along the right sheets with a distal "J" laterally. He received irrigation of the wound with subsequent stitches. Antibiotics were prescribed, however the patient was one aware and it was not until Monday, 3 days later that he was called by the pharmacy to peanut picker her prescription for cephalexin. He started taking that on Monday. On Monday prior to starting antibiotics he noticed that his leg was getting red and painful. On Monday he continued to be red and painful spot of oral antibiotics. He has had a double up on some of his usual home oxycodone to control the pain (from 10-20 mg every 4 hours as needed). Monday was seen in the emergency department here. There is erythema and pain. Margins were noted , he was given a dose of ceftriaxone and continued on cephalexin and asked to return if he did not improve. He returns today due to worsening erythema and pain of his right leg. Patient denies any fevers or chills associated with this. He's been mostly on the couch with his leg elevated. It's quite painful to get up, to move and to try to ambulate to the restroom. He's had no associated nausea or vomiting, no shaking chills. In the emergency department, erythema had progressed beyond the margins both distally and proximally (more so distally). He had an area of breakdown about a quarter of the way down from the proximal end of the laceration. There is concern this could be vascular insufficiency, he underwent CT angiography of the lower extremity showing patent vascular flow to the right leg. There was no notation of subcutaneous edema, no notation of any fascial changes. Patient's been admitted for further treatment of cellulitis associated with right leg laceration which has not responded to outpatient therapy. 06/21 Feels well today. Pain is decreased in the leg, also notes her is decreased edema. Blood cultures without growth. No areas of purulence/drainage to culture. Being seen by wound care. 06/22 Patient seen and examined today, seen with Dr. Irving, also discussed with Dr. Agudelo. Some necrosis in the midportion of the suture line, some mild purulence. Cultures taken. Pain in the leg continues with ambulation, though not as painful when he first came in. Edema continues to improve. 06/23 Status post debridement and washout in the OR by Dr. Agudelo this morning. A little groggy after anesthesia. No new complaints. Case discussed with ID this morning, we'll send screening for hepatitis and HIV given demographics. Patient believes he is had negative hepatitis screen in the past, though that was several years ago. Bacterial cultures as well as AFB, fungal cultures and tissue biopsy were collected intraoperatively. 06/24 Seen on rounds. No new complaints this morning. Superficial culture obtained on 06/22 growing coag-negative staph. From the intra-operative culture, Gram stain shows rare gram-positive cocci, culture pending. ARMANDO stain was negative for fungal elements. Remains on Zyvox and cefepime. 06/25 -Seen on a rounds. Discussed with nursing. Discussed with wound care nurse. -To start hyperbaric oxygen today -Continues on broad antimicrobials, no new culture data 06/26 slept well, no new complaints. ambulated to bathroom with some discomfort to the leg. 06/27 soft stools, too much form for lab to run a c.diff. stool softeners stopped yesterday. nausea. 06/28 loose stools per patient but none reported by nurse. with perianal irritation. 06/29 several loose BM's last night, soft per nursing. otherwise no new complaints. 06/30 no overnight events, diarrhea improving. 07/01 patient seen examined, no acute overnight issues, pt tolerating po diet well on abx as per ID and wound care 07/02 Pt seen examined, some anxiety issues last night, responded well to ativan. this am has no complaints slept ok, tolerating po diet well. awaiting cadaveric graft, IV abx to continue per ID/ Wound care. 07/03 Pt seen examined, no changes, antibiotics changed to metronidazole and linezolid as per ID Graft anticipated in AM 07/04 Pt seen examined no acute overnight issues this am had graft surgery done seen post op, complaining of pain post op, throbbing, in the foot, not willing to consider discharge at thsi time. has received morphine, fentanyl, IV Tylenol, meperidine so far without much help , he is also on oral dilaudid Pertinent ROS: Denies headache, dizziness Denies chest pain, palpitations Denies cough or shortness of breath Denies abdominal pain, nausea or vomiting. - Constitutional Vitals: Vital Signs Temp Pulse Resp BP Pulse Ox 97.2 F 80 16 119/76 93 07/04/18 10:00 07/04/18 10:00 07/04/18 10:00 07/04/18 10:00 07/04/18 10:00 Period Temp Pulse Resp BP Sys/Rios Pulse Ox Last 24 Hr 96.8 F-98.2 F 67-96 12-18 106-140/62-87 91-98 Intake and Output 07/03/18 07/04/18 07/04/18 21:59 05:59 13:59 Intake Total 360 / 360 1100 / 1100 Output Total 70 / 70 Balance 360 / 360 1030 / 1030 Weight 192 lb 8 oz Intake & Output: Intake & Output 07/03/18 07/04/18 07/04/18 21:59 05:59 13:59 Intake Total 360 / 360 1100 / 1100 Output Total 70 / 70 Balance 360 / 360 1030 / 1030 Weight 192 lb 8 oz Intake: IV 1100 / 1100 Lactated Ringers 1,000 ml @ 20 1000 / 1000 mls/hr IV .Q24H [facility] Rx#: [id number] Oral 360 / 360 Output: Estimated Blood Loss 70 / 70 Other: Meal Dinner Percent of Meal Consumed 100% Feeding Ability Independent Stool Size Small Stool Consistency Loose # Voids 1 1 1 # Bowel Movements 1 Exam: Constitutional; Afebrile, cooperative, alert, not in distress. Eyes- No icterus, , No periorbital swelling Ears- Ext ear normal, hearing normal to conversation. Neck- Midline trachea, supple Respiratory system: Air Entry equal on both sides, No crackles or wheezing, no rhonchi. CVS- Rate rhythm regular, S1,S2 heard, no gallop, no rub. 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 Medical - PN: Obj Da - Labs CBC & Chem 7: 07/03/18 04:00 07/03/18 04:00 Labs: Abnormal Lab Results 07/03/18 07/03/18 07/02/18 04:00 04:00 04:47 RBC 3.16 L Hgb 11.2 L Hct 32.0 L MCV 101.3 H MCH 35.3 H RDW 15.1 H MPV Creatinine 0.6 L 0.6 L Glucose 116 H Alkaline Phosphatase 140 H 134 H 07/02/18 04:47 RBC 3.43 L Hgb 12.1 L Hct 34.7 L MCV 101.1 H MCH 35.3 H RDW 15.6 H MPV 7.1 L Creatinine Glucose Alkaline Phosphatase Meds: Medications Acetaminophen (Tylenol) 650 mg PO Q6HP PRN PRN Reason: PAIN/FEVER > 101 Ascorbic Acid (Vitamin C) 1,000 mg PO DAILY [facility] Bisacodyl (Dulcolax) 10 mg [place] DAILYP PRN PRN Reason: Constipation Diphenhydramine HCl (Benadryl) 25 mg PO HSP PRN PRN Reason: Insomnia Enoxaparin Sodium (Lovenox) 40 mg SQ DAILY [facility] Gabapentin (Neurontin) 100 mg PO Q8 [facility] Heparin Sodium (Porcine) (Heparin Flush) 2 ml IV Q12 [facility] Hydrocortisone (Hc Crm 1%) 1 dose TOPICAL TIDP PRN PRN Reason: Itching Hydromorphone HCl (Dilaudid) 4 mg PO Q4-6HP PRN PRN Reason: PAIN LEVEL 3-6 Last Admin: 07/04/18 10:35 Dose: 4 mg Ketorolac Tromethamine (Toradol) 15 mg IV Q6HP PRN PRN Reason: Pain Stop: 07/06/18 11:47 Lactobacillus Rhamnosus (Culturelle) 1 cap PO BID [facility] Levothyroxine Sodium (Synthroid) 150 mcg PO ACB [facility] Linezolid (Zyvox) 600 mg PO Q12 [facility] Loperamide HCl (Imodium) 2 mg PO PRN PRN PRN Reason: Diarrhea Lorazepam (Ativan) 0.5 mg PO TIDP PRN PRN Reason: ANXIETY/SEDATION Metronidazole (Flagyl) 500 mg PO Q8 [facility] Morphine Sulfate (Morphine) 0 mg IV Q4HP PRN PRN Reason: PAIN LEVEL > 6 Last Admin: 07/04/18 10:34 Dose: 4 mg Multivitamins/Minerals (Ocuvite) 1 tab PO BID [facility] Ondansetron HCl (Zofran) 4 mg IV Q4HP PRN PRN Reason: Nausea And Vomiting Pantoprazole Sodium (Protonix) 40 mg PO QAMAC [facility] Sodium Chloride (Saline Flush) 10 ml IV Q8 [facility] Sodium Chloride (Saline Flush) 10 ml IV Q12 [facility] Tamsulosin HCl (Flomax) 0.4 mg PO HS [facility] Throat Lozenges (Cepacol) 1 lozenge PO PRN PRN PRN Reason: Sore Throat Trazodone HCl (Desyrel) 50 mg PO HSP PRN PRN Reason: Insomnia Zinc Sulfate (Zinc) 50 mg PO DAILY [facility] Medical - PN: A/P - Time Spent With Patient Total time spent is greater than 50% in coordination of care (as documented) at patient's floor/unit and/or counseling patient: - Narrative A/P Narrative: 73-year-old male presents with worsening erythema and pain of the right lower extremity after a wound from falling on rocks 5 days prior to presentation. Cellulitis RLL: on flagyl, linezolid per ID, 2 more weeks post graft placement, which is expected tomorrow. Post op pain- not responding well to narcotics, start on gabapentin 100mg tid, first dose now, start on IV ketorolac 30mg q6hp. continue morphine for now, and po dilaudid. Hypertension: Continue home meds. BP stable Hypothyroidism: cont home replacement. Degenerative disc disease with chronic pain on chronic opioids: stil requiring iv morhine, in addition to home dose of oxycodone, try to switch to oral dilaudid and see how he responds, pain control seems better. Anxiety- initially plan to consider ssri, but given interaction with zyvox, just use low dose ativan prn for now. patient has stable labs, hemodynamically stable, disposition as per wound care physician, awaiting cadaveric graft.
[2018-07-04] MEDS ORDERED: morphine 15 MG TABLET PO PRN (12:07)
[2018-07-04] MEDS ORDERED: GABAPENTIN 100 MG CAPSULE PO SCH (14:00)
[2018-07-04] MEDS: LORazepam 0.5 MG TABLET PO PRN ×2 (15:40→20:29)
[2018-07-04] MEDS: KETOROLAC 15 MG/ML VIAL IV SCH ×2 (18:06→23:20)
[2018-07-04] MEDS: ACETAMINOPHEN 500 MG TABLET PO SCH (20:29)
[2018-07-04 20:57] LABS: Ionized Calcium 1.17 mmol/L (1.16-1.32)
[2018-07-04] MEDS ORDERED: SENNOSIDES/DOCUSATE SODIUM 1 TAB TABLET PO SCH (21:00)
[2018-07-04] MEDS ORDERED: TAMSULOSIN 0.4 MG CAPSULE PO SCH (21:00)
[2018-07-04 22:19] LABS: Blood Urea Nitrogen 22 mg/dl (8-23)
[2018-07-04] MEDS: morphine 15 MG TABLET PO PRN (22:28)
[2018-07-05] MEDS: metroNIDAZOLE 500 MG TABLET PO SCH (04:58)
[2018-07-05] MEDS: KETOROLAC 15 MG/ML VIAL IV SCH ×2 (04:58→11:55)
[2018-07-05] MEDS: 0.9 % SODIUM CHLORIDE 10 ML SYRINGE IV SCH ×2 (04:58→07:46)
[2018-07-05 06:48] LABS: Basophils # (Auto) 0 K/mcL (0.0-0.3); Basophils % (Auto) 0.3 % (0.0-2.0); Eosinophils # (Auto) 0 K/mcL (0.0-0.7); Eosinophils % (Auto) 0.1 % (0.0-7.0); Granulocytes % (Auto) 82.2 % (38.0-78.0); Lymphocytes # (Auto) 1.5 K/mcL (1.5-4.8); Lymphocytes % (Auto) 14.3 % (15.5-49.0); Mean Cell Volume 101.6 fL (80.0-100.0); Mean Corpuscular HGB Conc 34.7 g/dL (31.0-36.0); Mean Corpuscular Hemoglobin 35.3 pg (26.0-34.0); Monocytes # (Auto) 0.3 K/mcL (0.1-0.9); Monocytes % (Auto) 3.1 % (1.0-12.0); Platelet Count 158 K/mcL (140-440); RBC 2.92 M/mcL (4.50-5.90); Red Cell Distribution Width 15.6 % (11.5-14.5)
[2018-07-05] MEDS: morphine 15 MG TABLET PO PRN ×2 (07:28→09:41)
[2018-07-05] MEDS ORDERED: LEVOTHYROXINE 150 MCG TABLET PO SCH (07:30)
[2018-07-05] MEDS ORDERED: PANTOPRAZOLE 40 MG TABLET PO SCH (07:30)
[2018-07-05] MEDS: LINEZOLID 600 MG TABLET PO SCH (07:45)
[2018-07-05] MEDS: VIT A,C & E/LUTEIN/MINERALS TABLET PO SCH (07:45)
[2018-07-05] MEDS: LACTOBACILLUS 1 CAPSULE PO SCH (07:45)
[2018-07-05] MEDS: ACETAMINOPHEN 500 MG TABLET PO SCH (07:46)
[2018-07-05] MEDS ORDERED: ASCORBIC ACID 500 MG TABLET PO SCH (09:00)
[2018-07-05] MEDS: LORazepam 0.5 MG TABLET PO PRN (09:00)
[2018-07-05] MEDS ORDERED: ENOXAPARIN 40 MG/0.4 ML SYRINGE SQ SCH (09:00)
[2018-07-05] MEDS ORDERED: ZINC SULFATE 50 MG CAPSULE PO SCH (09:00)
--- NOTE | 2018-07-05 10:09 | Discharge Summary ---
Medical - DS: Prov Patient information: Note initiated : 07/05/18 at 10:04 am Service Date, if different from initiated Date: [] Patient: Aakash Arellano 73 y/o M admitted on 06/20/18 for Debridement and Pulse Lavage Right Foot. Chief Complaint: [] Date of admission: 06/20/18 17:02 Discharge date: 07/05/18 Primary care physician: Eddie Sandoval Jr, MD Consults: 06/21/18 09:26 Consult to Physician [CONS] Routine Comment: Right Leg Wound Infection Consulting Provider: Marco Irving Reason For Exam: Physician to Consult 06/21/18 09:28 Consult to Physician [CONS] Routine Comment: Consulting Provider: Arturo Agudelo Reason For Exam: Physician to Consult Discharging clinician: Shade Yuan Medical - DS: Meds - Discharge Medications Prescriptions: Linezolid 600 mg PO BID #26 tab metroNIDAZOLE [Metronidazole] 500 mg PO Q8H #39 tab oxyCODONE HCL [Oxycodone HCl] 1 tab PO Q4HP PRN #60 tab PRN Reason: Pain Active and Home Medications: Home Medications Cholecalciferol (Vitamin D3) [Dialyvite Vitamin D] 5,000 unit PO DAILY 03/05/16 [History Confirmed 06/20/18 Last Taken 06/19/18 08:00] Fish Oil 1,000 mg PO DAILY 03/05/16 [History Confirmed 06/20/18 Last Taken 06/19 08:00] Folic Acid 1 mg PO ONCE 03/05/16 [History Confirmed 06/20/18 Last Taken 08:00] Levothyroxine [Synthroid] 150 mcg PO DAILY 03/05/16 [History Confirmed 06/20/18 Last Taken 06/19/18 07:00] Sildenafil Citrate [Viagra] 50 mg PO PRN PRN 03/05/16 [History Confirmed Last Taken 04/20/18] Tamsulosin [Flomax] 0.4 mg PO HS 12/19/16 [History Confirmed 06/20/18 Last Taken 06/19/18 20:00] Vit A/Vit C/Vit E/Zinc/Copper [Preservision Areds Softgel] 1 each PO BID [History Confirmed 06/21/18 Last Taken 06/19/18 20:00] oxyCODONE HCL [Oxycodone HCl] 1 tab PO QIDP PRN 06/19/18 [History Confirmed 03/02 Last Taken 06/20/18 11:00] Linezolid [Zyvox] 600 mg PO Q12 #48 tab 06/26/18 [Rx Last Taken Unknown] Moxifloxacin HCl [Avelox] 400 mg PO QDAY #22 tab 06/26/18 [Rx Last Taken Unknown ] Medical - DS: Hosp Hospital course: Mr. Arellano is a 73 year old M with a history of treated hypertension, treated hypothyroidism, chronic pain, BPH who presents back to the emergency department with worsening redness and pain of his right lower extremity. On Monday, 06/15, patient fell on [place] He is going to be camping with friends. 2 friends brought him to the emergency department. He had significant injury along the right sheets with a distal "J" laterally. He received irrigation of the wound with subsequent stitches. Antibiotics were prescribed, however the patient was one aware and it was not until Monday, 3 days later that he was called by the pharmacy to steel pickler her prescription for cephalexin. He started taking that on Monday. On Monday prior to starting antibiotics he noticed that his leg was getting red and painful. On Monday he continued to be red and painful spot of oral antibiotics. He has had a double up on some of his usual home oxycodone to control the pain (from 10-20 mg every 4 hours as needed). Monday was seen in the emergency department here. There is erythema and pain. Margins were noted , he was given a dose of ceftriaxone and continued on cephalexin and asked to return if he did not improve. He returns on the day of admission due to worsening erythema and pain of his right leg. Patient denies any fevers or chills associated with this. He's been mostly on the couch with his leg elevated. It's quite painful to get up, to move and to try to ambulate to the restroom. He's had no associated nausea or vomiting, no shaking chills. In the emergency department, erythema had progressed beyond the margins both distally and proximally (more so distally). He had an area of breakdown about a quarter of the way down from the proximal end of the laceration. There is concern this could be vascular insufficiency, he underwent CT angiography of the lower extremity showing patent vascular flow to the right leg. There was no notation of subcutaneous edema, no notation of any fascial changes. Patient's been admitted for further treatment of cellulitis associated with right leg laceration which has not responded to outpatient therapy. Cellulitis- Treated with IV antibiotics, surgical debridement and flap closure on 06/23/18, the patient subsequently developed flap necrosis, and therefore needed continued IV ABX, he was also started on HBOT treatment for saving the flap. the patient had to undergo a second procedure on 07/04/2018 to remove the necrotic flap and had a cadeveric granft implant. The wound culture has been growing, Coag neg staph, and tisserella pastuaella, Infectious disease was consulted for this patient. The patient will be discharged on 2 weeks of oral antibiotics, zyvox and metronidazole. The patient hospital stay was complicated with difficult to control pain, but pt is doing well today, wishes to go back on oxycodone at discharge. The patient has PTSD some anxiety issues, did not smoke during the hospital stay , I have not initiated medications for his anxiety at this time as he is on zyvox, he may benefit from a SSRI once his Zyvox treatment is finished. The rest of the stay in the hospital was uneventful. I have not made any changes to his [facility] home medication list except oxycodone which is q4hp for a short duration. Discharge diagnosis: Cellulitis. - Time Spent with Patient Total time spent providing and/or coordinating discharge services: Greater than 30 minutes Medical - DS: Exam - Constitutional Vitals: Vital Signs Temp Pulse Resp BP Pulse Ox 07/05/18 07:27 96.8 F L 79 12 126/75 91 07/05/18 04:45 97.9 F 75 12 117/70 95 07/04/18 23:01 97.9 F 86 12 112/68 97 07/04/18 20:00 98.0 F 94 H 12 114/69 95 07/04/18 15:44 97.9 F 97 H 16 125/86 95 07/04/18 13:07 90 119/80 97 07/04/18 12:38 96 H 125/80 94 07/04/18 12:07 89 120/77 93 07/04/18 11:37 87 117/76 94 07/04/18 11:24 95 H 118/68 94 07/04/18 11:07 83 112/68 94 07/04/18 10:52 78 127/79 96 07/04/18 10:37 80 119/76 97 07/04/18 10:22 76 117/72 94 07/04/18 10:07 78 110/69 93 07/04/18 10:05 80 16 93 Intake and Output 07/04/18 07/05/18 07/05/18 21:59 05:59 13:59 Intake Total 480 / 480 200 / 200 Output Total 525 / 525 Balance -45 / -45 200 / 200 Intake: Oral 480 / 480 200 / 200 Output: Void Amount 525 / 525 Other: Meal Dinner Breakfast Percent of Meal Consumed 100% 100% Feeding Ability Assist with Tray Set Up Independent Urine Appearance Clear Urine Color Dark Yellow Stool Size Small Stool Color Brown Stool Consistency Soft # Voids 1 1 # Bowel Movements 1 Weight 194 lb Additional comments: Constitutional; Afebrile, cooperative, alert, not in distress. Eyes- No icterus, , No periorbital swelling Ears- Ext ear normal, hearing normal to conversation. Neck- Midline trachea, supple Respiratory system: Air Entry equal on both sides, No crackles or wheezing, no rhonchi. CVS- Rate rhythm regular, S1,S2 heard, no gallop, no rub. 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 Medical - DS: Data Labs on day of discharge: Labs from last 24 hours 07/05/18 07/04/18 04:50 19:30 WBC 10.9 RBC 2.92 L Hgb 10.3 L Hct 29.6 L MCV 101.6 H MCH 35.3 H MCHC 34.7 RDW 15.6 H Plt Count 158 MPV 7.5 Gran % 82.2 H Lymph % (Auto) 14.3 L [place] % (Auto) 3.1 Eos % (Auto) 0.1 Baso % (Auto) 0.3 Gran # 8.9 H Lymph # (Auto) 1.5 [place] # (Auto) 0.3 Eos # (Auto) 0 Baso # (Auto) 0 Sodium 137 Potassium 5.1 Chloride 99 Carbon Dioxide 25 Anion Gap 13.0 BUN 22 Creatinine 0.8 GFR Calculation 89 Glucose 135 H Ionized Calcium Víctor 1.17 Preliminary micro results at discharge 06/23/18 14:17 Skin Fungal Culture - Preliminary Leg - Lower Right 06/23/18 14:17 Acid Fast Bacilli Culture & Smear - Preliminary Leg - Lower Right Medical - DS: A/P - Patient/Caregiver Discharge Instructions Activity: increase activity as tolerated Diet: Regular Diet Additional Instructions: Please take linezolid 600mg twice daily for 13 days Take metronidazone 500mg three times a day for 13 days, these are you antibiotics. Follow up next week in the would care clinic. DO not change dressing till seen in the wound care clinic. Please take acetaminophen 1000mg three times a day (over the counter drug), if this medication in conjunction with oxycodone is not helping you may take some ibuprofen 400mg with food upto four times a day. Follow up with PCP in 1 -2 weeks If you develop fever, chest pain, shortness of breath, or any other acute concern, please go to the ER Prescriptions: Moxifloxacin HCl [Avelox] 400 mg PO QDAY #22 tab - Follow up Plan Follow up with: Eddie Sandoval Jr, MD [Primary Care Provider] - Marco Irving MD [Physician] - Arturo Agudelo MD [Physician] - Disposition: Home, Self-Care Prognosis: Fair Rehab Potential: Fair I certify that the patient requires SNF services: No Overall status at discharge: patient is progressing back to baseline
--- NOTE | 2018-07-05 10:18 | General Surgery Progress Note ---
Subjective Narrative: Note initiated : 07/05/18 at 10:08 am Service Date, if different from initiated Date: [] Patient: Aakash Arellano 73 y/o M admitted on 06/20/18 for Debridement and Pulse Lavage Right Foot. Chief Complaint: [Postoperative day #2 Status post repeat ultrasound debridement of the right leg wound with EPIFX powder and AlloDerm graft placement. Patient's pain is well controlled. He does not have any subjective complaints. Keen to go home today.] Will discontinue HBO treatments Objective Temp Pulse Resp BP Pulse Ox 96.8 F L 79 12 126/75 91 07/05/18 07:27 07/05/18 07:27 07/05/18 07:27 07/05/18 07:27 07/05/18 07:27 Afebrile. Vital signs are stable. No changes in her physical examination. Right leg dressings are clean dry and intact. Toes are pink warm and dry. Patient is ambulating full weightbearing on right leg. - Additional Data Intake & Output - Last 24 hours: Intake & Output 07/03/18 07/04/18 07/05/18 07/06/18 05:59 05:59 05:59 05:59 Intake Total 2420 / 2420 760 / 760 2180 / 2180 Output Total 595 / 595 Balance 2420 / 2420 760 / 760 1585 / 1585 Weight 197 lb 192 lb 8 oz 194 lb - Labs 07/05/18 04:50 07/04/18 19:30 Diabetes panel 07/04/18 Range/Units 19:30 Sodium 137 (133-145) mmol/L Potassium 5.1 (3.3-5.1) mmol/L Chloride 99 (96-108) mmol/L Carbon Dioxide 25 (22-30) mmol/L BUN 22 (8-23) mg/dl Creatinine 0.8 (0.7-1.2) mg/dl Glucose 135 H (70-105) mg/dL Calcium panel 07/04/18 Range/Units 19:30 Ionized Calcium Víctor 1.17 (1.16-1.32) mmol/L Pituitary panel 07/04/18 Range/Units 19:30 Sodium 137 (133-145) mmol/L Potassium 5.1 (3.3-5.1) mmol/L Chloride 99 (96-108) mmol/L Carbon Dioxide 25 (22-30) mmol/L BUN 22 (8-23) mg/dl Creatinine 0.8 (0.7-1.2) mg/dl Glucose 135 H (70-105) mg/dL Adrenal panel 07/04/18 Range/Units 19:30 Sodium 137 (133-145) mmol/L Potassium 5.1 (3.3-5.1) mmol/L Chloride 99 (96-108) mmol/L Carbon Dioxide 25 (22-30) mmol/L BUN 22 (8-23) mg/dl Creatinine 0.8 (0.7-1.2) mg/dl Glucose 135 H (70-105) mg/dL Assessment and Plan (1) Sepsis affecting skin Problem details: Patient started on local wound care consisting of chlorhexidine washes, MIST treatment, Topical antibiotics and protect to dressing with Kerlix bandage. He is on broad-spectrum intravenous antibiotics which will be reevaluated and probably De-escalated later. Status: Acute Current Visit: Yes - Narrative A/P Narrative: Assessment: Satisfactory postsurgical progress. Okay to discharge home from wound wound care services. By mouth antibiotics per ID. OTC pain meds. Plan: Follow up at the wound clinic to see Dr. Terrance Whaley on Monday, 2017 - Time Spent With Patient Total time spent is greater than 50% in coordination of care (as documented) at patient's floor/unit and/or counseling patient:
--- NOTE | 2018-07-05 13:31 | Surgical Pathology Report ---
HISTOLOGY SPECIMEN MICROSCOPIC DIAGNOSIS SKIN, RIGHT LEG, SUBMITTED "NECROTIC FLAP", BIOPSY: -- SKIN WITH ULCERATION, NECROSIS, GRANULATION TISSUE AND MARKED ACUTE AND CHRONIC INFLAMMATION. -- NO MALIGNANCY IDENTIFIED. (RLF:vladimirf) CLINICAL HISTORY Wound. GROSS DESCRIPTION Received in formalin labeled with the patient information, is a 5.2 x 3.2 by up to 0.3 cm portion of soft tissue. The surface is chamorro-polk to black with yellow-polk scab-like areas. The margin is inked black. Jewelry Facer sections submitted in one cassette. (STS:adj) Electronically Signed by: Bess Nava M.D.
== END 2018-07-05 12:19 | disposition home or self-care (01) | DRG 574 ==
LOC: ED 11:56 → MEDSUR 17:00
PROVIDERS: ADMIT Internal Medicine; ATTEND Internal Medicine

== ENCOUNTER 2024-12-10 11:57 | Inpatient (IN) ==
[2024-12-10] MEDS ORDERED: IOPAMIDOL 125 ML BOTTLE IV ONE (11:58)
[2024-12-10 12:43] LABS: Basophils # (Auto) 0.04 K/mcL (0.00-0.30); Basophils % (Auto) 0.6 % (0.0-2.0); Eosinophils # (Auto) 0.03 K/mcL (0.00-0.70); Eosinophils % (Auto) 0.5 % (0.0-7.0); Hematocrit 48.9 % (40.1-51.0); Hemoglobin 15.3 g/dL (13.7-17.5); Lymphocytes # (Auto) 1.33 K/mcL (1.50-4.80); Lymphocytes % (Auto) 20.1 % (15.5-49.0); Mean Cell Volume 104.3 fL (80.0-100.0); Mean Corpuscular HGB Conc 31.3 g/dL (31.0-36.0); Mean Platelet Volume 10.5 fL (8.8-12.5); Monocytes # (Auto) 0.44 K/mcL (0.10-0.90); Monocytes % (Auto) 6.6 % (1.0-12.0); Neutrophils % (Auto) 70.4 % (38.0-78.0); Platelet Count 143 K/mcL (140-440); RBC 4.69 M/mcL (4.63-6.08); Red Cell Distribution Width 19.4 % (11.5-14.5); WBC 6.6 K/mcL (4.5-11.0)
[2024-12-10 12:50] LABS: INR 1.1 (0.9-1.1); Prothrombin Time 14.6 sec (11.9-14.5)
[2024-12-10 13:01] LABS: ALT/SGPT 24 U/L (<40); AST/SGOT 27 U/L (<40); Albumin 3.7 gm/dL (3.2-5.2); Albumin/Globulin Ratio 1.2 (1.0-2.3); Alkaline Phosphatase 187 U/L (39-117); Bilirubin,Total 1.5 mg/dL (0.1-1.0); Blood Urea Nitrogen 17 mg/dL (8-23); Carbon Dioxide 25 mmol/L (22-30); Chloride 100 mmol/L (96-108); Globulin 3.1 gm/dL (2.2-3.7); Glomerular Filtration Rate 89; Glucose 103 mg/dL (70-105); Potassium 4.2 mmol/L (3.3-5.1); Sodium 139 mmol/L (133-145)
[2024-12-10 13:43] LABS: Appearance,Urine Clear (Clear); Bilirubin,Urine Negative (Negative); Color,Urine Yellow; Glucose,Urine (UA) Negative (Negative); Ketones,Urine 15 mg/dL (Negative); Leukocyte Esterase,Urine Negative /uL (Negative); Nitrate,Urine Negative (Negative); PH,Urine 5.5 (5.0-9.0); Protein,Urine 100 mg/dL (Negative); Specific Gravity,Urine 1.025 (1.000-1.035); Urine Blood Negative ery/mcL (Negative); Urine Hyaline Cast 17 /lph (0-2); Urine RBC 0 /hpf (0-3); Urine Squamous Epithelial Cell 0 /hpf (0-4); Urine Transitional Epi Cells 5 /hpf (0-2); Urine WBC 0 /hpf (0-4)
[2024-12-10] MEDS: FUROSEMIDE 100 MG/10 ML VIAL IV ONE (13:43)
[2024-12-10] MEDS ORDERED: ONDANSETRON 4 MG/2 ML VIAL IV PRN (19:33)
[2024-12-10 20:20] LABS: Thyroid Stimulating Hormone 2.42 uIU/mL (0.27-5.01)
[2024-12-10 21:51] LABS: Free T4 (Free Thyroxine) 1.69 ng/dL (0.93-1.70)
[2024-12-10] MEDS: SENNOSIDES 1 TABLET PO SCH (21:53)
[2024-12-10] MEDS: FUROSEMIDE 40 MG/4 ML VIAL IV SCH (21:53)
[2024-12-10] MEDS: 0.9 % SODIUM CHLORIDE 10 ML SYRINGE IV SCH (21:53)
[2024-12-11 05:12] LABS: Basophils # (Auto) 0.04 K/mcL (0.00-0.30); Basophils % (Auto) 0.7 % (0.0-2.0); Eosinophils # (Auto) 0.03 K/mcL (0.00-0.70); Eosinophils % (Auto) 0.5 % (0.0-7.0); Hematocrit 46.2 % (40.1-51.0); Hemoglobin 14.3 g/dL (13.7-17.5); Lymphocytes # (Auto) 1.01 K/mcL (1.50-4.80); Lymphocytes % (Auto) 16.5 % (15.5-49.0); Mean Cell Volume 106.7 fL (80.0-100.0); Mean Platelet Volume 10.4 fL (8.8-12.5); Monocytes # (Auto) 0.56 K/mcL (0.10-0.90); Monocytes % (Auto) 9.2 % (1.0-12.0); Neutrophils % (Auto) 71.6 % (38.0-78.0); Platelet Count 134 K/mcL (140-440); RBC 4.33 M/mcL (4.63-6.08); Red Cell Distribution Width 19.4 % (11.5-14.5); WBC 6.1 K/mcL (4.5-11.0)
[2024-12-11 05:50] LABS: ALT/SGPT 20 U/L (<40); AST/SGOT 25 U/L (<40); Albumin 3.3 gm/dL (3.2-5.2); Albumin/Globulin Ratio 1.2 (1.0-2.3); Alkaline Phosphatase 162 U/L (39-117); Bilirubin,Direct 0.8 mg/dL (<0.3); Bilirubin,Total 1.7 mg/dL (0.1-1.0); Blood Urea Nitrogen 16 mg/dL (8-23); Calcium 8.6 mg/dL (8.6-10.4); Carbon Dioxide 28 mmol/L (22-30); Chloride 99 mmol/L (96-108); Globulin 2.7 gm/dL (2.2-3.7); Glomerular Filtration Rate 89; Glucose 121 mg/dL (70-105); Lactate Dehydrogenase 229 U/L (135-225); Phosphorous 3.1 mg/dL (2.5-4.5); Potassium 3.9 mmol/L (3.3-5.1); Sodium 137 mmol/L (133-145); Triglycerides 63 mg/dL (<150); Uric Acid 6.4 mg/dL (2.5-8.0)
[2024-12-11] MEDS ORDERED: MAGNESIUM SULFATE 24.36 MEQ in DEXTROSE 5% IN WATER 50 ML IV ONE (08:00)
[2024-12-11] MEDS: MAGNESIUM SULFATE 2 GM/50 ML BAG IV ONE (08:09)
[2024-12-11] MEDS: tiZANidine 4 MG TABLET PO SCH (08:09)
[2024-12-11] MEDS: DULoxetine 30 MG CAPSULE PO SCH (08:09)
[2024-12-11] MEDS: ENOXAPARIN 40 MG/0.4 ML SYRINGE SQ SCH (08:14)
[2024-12-11] MEDS: LEVOTHYROXINE 150 MCG TABLET PO SCH (08:14)
[2024-12-11] MEDS ORDERED: LEVOTHYROXINE 150 MCG TABLET PO SCH (09:00)
[2024-12-11] MEDS ORDERED: traZODone HCL 50 MG TABLET PO SCH (09:00)
[2024-12-11] MEDS: MAGNESIUM SULFATE 1 GM/100 ML BAG IV ONE (11:48)
[2024-12-11] MEDS ORDERED: CETIRIZINE 10 MG TABLET PO PRN (14:12)
[2024-12-11] MEDS: FUROSEMIDE 40 MG/4 ML VIAL IV SCH ×2 (19:18→19:39)
[2024-12-11] MEDS: traZODone HCL 50 MG TABLET PO SCH (20:39)
[2024-12-11] MEDS: VIT A,C & E/LUTEIN/MINERALS TABLET PO SCH (20:39)
[2024-12-11] MEDS: POTASSIUM CHLORIDE 20 MEQ TABLET PO ONE (21:51)
[2024-12-12 06:08] LABS: Basophils # (Auto) 0.03 K/mcL (0.00-0.30); Basophils % (Auto) 0.5 % (0.0-2.0); Eosinophils # (Auto) 0.02 K/mcL (0.00-0.70); Eosinophils % (Auto) 0.4 % (0.0-7.0); Hematocrit 43.6 % (40.1-51.0); Hemoglobin 13.7 g/dL (13.7-17.5); Lymphocytes # (Auto) 1.18 K/mcL (1.50-4.80); Lymphocytes % (Auto) 20.9 % (15.5-49.0); Mean Cell Volume 103.8 fL (80.0-100.0); Mean Corpuscular HGB Conc 31.4 g/dL (31.0-36.0); Monocytes # (Auto) 0.47 K/mcL (0.10-0.90); Monocytes % (Auto) 8.3 % (1.0-12.0); Platelet Count 143 K/mcL (140-440); Red Cell Distribution Width 19.1 % (11.5-14.5); WBC 5.7 K/mcL (4.5-11.0)
[2024-12-12 06:33] LABS: ALT/SGPT 16 U/L (<40); AST/SGOT 19 U/L (<40); Albumin 3.4 gm/dL (3.2-5.2); Albumin/Globulin Ratio 1.4 (1.0-2.3); Alkaline Phosphatase 151 U/L (39-117); Bilirubin,Direct 0.8 mg/dL (<0.3); Bilirubin,Total 1.4 mg/dL (0.1-1.0); Blood Urea Nitrogen 17 mg/dL (8-23); Calcium 8.8 mg/dL (8.6-10.4); Carbon Dioxide 35 mmol/L (22-30); Chloride 95 mmol/L (96-108); Globulin 2.5 gm/dL (2.2-3.7); Glomerular Filtration Rate 89; Glucose 143 mg/dL (70-105); Lactate Dehydrogenase 183 U/L (135-225); Phosphorous 2.7 mg/dL (2.5-4.5); Potassium 3.5 mmol/L (3.3-5.1); Sodium 139 mmol/L (133-145); Triglycerides 54 mg/dL (<150); Uric Acid 6.8 mg/dL (2.5-8.0)
[2024-12-12] MEDS: POTASSIUM CHLORIDE 20 MEQ TABLET PO ONE (07:55)
[2024-12-12] MEDS: MAGNESIUM SULFATE 4 GM/100 ML BAG IV ONE (10:28)
[2024-12-12] MEDS: FISH OIL 1,000 MG CAPSULE PO SCH (11:00)
[2024-12-12] MEDS: CYANOCOBALAMIN (VITAMIN B-12) 500 MCG TABLET PO SCH (11:02)
[2024-12-12] MEDS: VITAMIN D3 125 MCG TABLET PO SCH (11:03)
[2024-12-12 21:05] LABS: Potassium 3.9 mmol/L (3.3-5.1)
[2024-12-13 05:49] LABS: Basophils # (Auto) 0.04 K/mcL (0.00-0.30); Basophils % (Auto) 0.6 % (0.0-2.0); Eosinophils # (Auto) 0.02 K/mcL (0.00-0.70); Eosinophils % (Auto) 0.3 % (0.0-7.0); Hematocrit 42.8 % (40.1-51.0); Hemoglobin 13.7 g/dL (13.7-17.5); Lymphocytes # (Auto) 1.49 K/mcL (1.50-4.80); Lymphocytes % (Auto) 22.9 % (15.5-49.0); Mean Cell Volume 103.4 fL (80.0-100.0); Mean Platelet Volume 9.8 fL (8.8-12.5); Monocytes # (Auto) 0.52 K/mcL (0.10-0.90); Neutrophils % (Auto) 67.1 % (38.0-78.0); Platelet Count 136 K/mcL (140-440); RBC 4.14 M/mcL (4.63-6.08); Red Cell Distribution Width 18.7 % (11.5-14.5); WBC 6.5 K/mcL (4.5-11.0)
[2024-12-13 06:10] LABS: ALT/SGPT 16 U/L (<40); AST/SGOT 19 U/L (<40); Albumin 3.5 gm/dL (3.2-5.2); Albumin/Globulin Ratio 1.5 (1.0-2.3); Alkaline Phosphatase 143 U/L (39-117); Bilirubin,Direct 0.8 mg/dL (<0.3); Bilirubin,Total 1.4 mg/dL (0.1-1.0); Blood Urea Nitrogen 21 mg/dL (8-23); Carbon Dioxide 36 mmol/L (22-30); Chloride 93 mmol/L (96-108); Globulin 2.4 gm/dL (2.2-3.7); Glomerular Filtration Rate 89; Glucose 98 mg/dL (70-105); Lactate Dehydrogenase 189 U/L (135-225); Phosphorous 2.8 mg/dL (2.5-4.5); Potassium 3.9 mmol/L (3.3-5.1); Sodium 136 mmol/L (133-145); Triglycerides 58 mg/dL (<150); Uric Acid 6.5 mg/dL (2.5-8.0)
[2024-12-13] MEDS ORDERED: FUROSEMIDE 100 MG/10 ML VIAL IV SCH (07:00)
[2024-12-13] MEDS: FUROSEMIDE 100 MG/10 ML VIAL IV SCH (08:15)
[2024-12-13] MEDS: NICOTINE POLACRILEX 2 MG GUM CHEW/PARK PRN (15:36)
[2024-12-13] MEDS: NICOTINE 21 MG PATCH TOPICAL ONE (15:37)
[2024-12-13] MEDS: NICOTINE 7 MG PATCH TOPICAL ONE (15:37)
[2024-12-13] MEDS: acetaZOLAMIDE SOD 500 MG VIAL IV SCH (19:36)
[2024-12-14 06:39] LABS: ALT/SGPT 14 U/L (<40); AST/SGOT 20 U/L (<40); Albumin 3.4 gm/dL (3.2-5.2); Albumin/Globulin Ratio 1.4 (1.0-2.3); Alkaline Phosphatase 135 U/L (39-117); Bilirubin,Direct 1.1 mg/dL (<0.3); Bilirubin,Total 1.9 mg/dL (0.1-1.0); Blood Urea Nitrogen 20 mg/dL (8-23); Calcium 9.1 mg/dL (8.6-10.4); Carbon Dioxide 34 mmol/L (22-30); Chloride 90 mmol/L (96-108); Globulin 2.5 gm/dL (2.2-3.7); Glomerular Filtration Rate 89; Glucose 141 mg/dL (70-105); Lactate Dehydrogenase 207 U/L (135-225); Phosphorous 2.8 mg/dL (2.5-4.5); Potassium 3.1 mmol/L (3.3-5.1); Sodium 135 mmol/L (133-145); Triglycerides 64 mg/dL (<150); Uric Acid 6.7 mg/dL (2.5-8.0)
[2024-12-14] MEDS: ACETAMINOPHEN 325 MG TABLET PO PRN (08:24)
[2024-12-14] MEDS: POTASSIUM CHLORIDE 20 MEQ TABLET PO SCH (09:32)
[2024-12-14] MEDS: METOLAZONE 2.5 MG TABLET PO SCH (09:32)
[2024-12-14] MEDS: NICOTINE 7 MG PATCH TOPICAL SCH (09:36)
[2024-12-14] MEDS: NICOTINE 21 MG PATCH TOPICAL SCH (09:36)
[2024-12-14] MEDS: METOPROLOL TARTRATE 25 MG TABLET PO SCH (14:31)
[2024-12-15 07:26] LABS: ALT/SGPT 13 U/L (<40); AST/SGOT 20 U/L (<40); Albumin 3.5 gm/dL (3.2-5.2); Albumin/Globulin Ratio 1.3 (1.0-2.3); Alkaline Phosphatase 141 U/L (39-117); Bilirubin,Total 1.7 mg/dL (0.1-1.0); Blood Urea Nitrogen 22 mg/dL (8-23); Calcium 9.4 mg/dL (8.6-10.4); Carbon Dioxide 38 mmol/L (22-30); Chloride 89 mmol/L (96-108); Globulin 2.8 gm/dL (2.2-3.7); Glomerular Filtration Rate 95; Glucose 107 mg/dL (70-105); Lactate Dehydrogenase 202 U/L (135-225); Phosphorous 3.1 mg/dL (2.5-4.5); Potassium 3.1 mmol/L (3.3-5.1); Sodium 137 mmol/L (133-145); Triglycerides 61 mg/dL (<150); Uric Acid 7.4 mg/dL (2.5-8.0)
[2024-12-15 08:01] LABS: Basophils # (Auto) 0.04 K/mcL (0.00-0.30); Basophils % (Auto) 0.3 % (0.0-2.0); Eosinophils # (Auto) 0.02 K/mcL (0.00-0.70); Eosinophils % (Auto) 0.2 % (0.0-7.0); Hematocrit 43.3 % (40.1-51.0); Hemoglobin 13.5 g/dL (13.7-17.5); Lymphocytes % (Auto) 8.8 % (15.5-49.0); Mean Cell Volume 104.8 fL (80.0-100.0); Mean Corpuscular HGB Conc 31.2 g/dL (31.0-36.0); Mean Platelet Volume 10.5 fL (8.8-12.5); Monocytes % (Auto) 4.8 % (1.0-12.0); Neutrophils % (Auto) 85.2 % (38.0-78.0); Platelet Count 139 K/mcL (140-440); RBC 4.13 M/mcL (4.63-6.08); Red Cell Distribution Width 18.8 % (11.5-14.5); WBC 12.4 K/mcL (4.5-11.0)
[2024-12-15 09:22] LABS: Anisocytosis 1+ (None Seen); Lymphocytes % 5 % (15-49); Monocytes % (Manual) 4 % (1-12); Ovalocytes 1+ (None Seen); Platelet Estimate NORMAL (Normal); Poikilocytosis 1+ (None Seen); RBC Morphology ABNORMAL (Normal); Segmented Neutrophils % 91 % (38-78); Stomatocytes 1+ (None Seen)
[2024-12-15] MEDS: METOPROLOL SUCCINATE 25 MG TAB.XL.24H PO SCH (09:44)
[2024-12-15] MEDS: SENNOSIDES 1 TABLET PO PRN (09:45)
[2024-12-15] MEDS: POTASSIUM CHLORIDE 20 MEQ TABLET PO SCH (09:45)
[2024-12-15] MEDS ORDERED: diphenhydrAMINE 25 MG CAPSULE PO PRN (09:48)
[2024-12-15] MEDS: acetaZOLAMIDE SOD 500 MG VIAL IV SCH (10:21)
[2024-12-15] MEDS: MELATONIN 3 MG TABLET PO SCH (20:05)
[2024-12-16 06:41] LABS: Blood Urea Nitrogen 25 mg/dL (8-23); Calcium 9.5 mg/dL (8.6-10.4); Carbon Dioxide 35 mmol/L (22-30); Chloride 93 mmol/L (96-108); Glomerular Filtration Rate 102; Glucose 112 mg/dL (70-105); Potassium 3.5 mmol/L (3.3-5.1); Sodium 137 mmol/L (133-145)
[2024-12-16 07:49] VITALS: O2SAT 96
[2024-12-16] MEDS: METOPROLOL SUCCINATE 25 MG TAB.XL.24H PO SCH (09:02)
[2024-12-16 11:58] VITALS: TEMP 98.2
[2024-12-30] MEDS ORDERED: TESTOSTERONE CYPIONATE 200 MG/ML IM SCH (09:00)
== END 2024-12-16 12:46 | DRG 291 ==
LOC: ED 11:57 → MEDSUR 19:30
PROVIDERS: ADMIT Student in an Organized Health Care Education/Training Program; ATTEND Internal Medicine